=== PATIENT | male | born 1945 | race Caucasian/White ===

== ENCOUNTER 2025-07-01 17:41 | Observation (INO) ==
--- NOTE | 2025-07-01 18:08 | Emergency Department Note ---
Impression & Plan GI bleed, Elevated troponin, Syncope, Acute head trauma, Abrasion of left knee, Anticoagulated ED Provider Note NAME: ZACK BLAS AGE: 80 SEX: M : 1945 ARRIVES VIA: Walk-In INFORMANT: [Patient][son] ED PROVIDER(S): [Jones Blanton MD] Patient first seen by me at 1754 CHIEF COMPLAINT: Rectal bleeding, fall HISTORY OF PRESENT ILLNESS: Patient is an 80-year-old male who states that he has had 4 to 5 days of black tarry stool. Today, he was at the refrigerator when he felt dizzy and apparently, had a brief syncopal event. He suffered a left knee abrasion and did strike the right side of his head. He has no headache or neck pain, no back pain or chest pain, no rib pain. No abdominal pain. He states despite the abrasion to the left knee, he can walk without difficulty. The patient is on Xarelto. He states that he gave a stool sample outpatient and it was positive for blood. He was referred to the ER. Patient had been on an antibiotic for around 5 days, he was on this for UTI. He stopped the antibiotic today as he thought it was causing a lot of the stomach upset and maybe even the loose, tarry black stool. PMHx/PSHx/Social Hx: See Below PHYSICAL EXAM: Primary Survey Airway: Intact Breathing: Breath sounds equal bilaterally. No respiratory distress Circulation: Skin warm, capillary refill less than 2 seconds Disability: Pupils equal and reactive to light Motor Function: Moves all extremities. Sensory: No deficits Secondary Survey GEN: Well developed and well-nourished HEAD: Normocephalic, atraumatic EYES: Pupils round and reactive to light, conjunctiva clear, extraocular movements intact ENT: No fluid in external acoustic canals, nares patent, oropharynx clear NECK: Midline trachea, no cervical spine tenderness HEART: Irregular rhythm, 2/6 systolic murmur, normal rate. LUNGS: Clear to auscultation bilaterally CHEST: Chest wall non-tender, no bruising/deformity ABD: No contusions, soft, non-tender, no distention PELVIS: Stable to rock BACK: No step offs or deformities, T-L spine non tender EXT: Moving all extremities well, no gross deformities. There is an abrasion to the anterior aspect of left knee. No pain to move the left knee joint. NEURO: No focal motor deficits, no sensory deficits DIFFERENTIAL DIAGNOSIS: Intracranial injury, upper or lower GI bleeding, anemia, electrolyte imbalance, UTI, among others. EMERGENCY DEPARTMENT PROCEDURES: C-spine clinically cleared at 1803, during my initial assessment. MEDICAL DECISION MAKING: There is no leukocytosis. A mild anemia was seen, he has a history of anemia. There was a normal platelet count. INR was 1.5, likely elevated from his Xarelto use. There was no significant electrolyte abnormality. Creatinine was elevated, this has been seen before. No concerning liver enzyme elevation. No evidence for pancreatitis. ECG showed atrial fibrillation, no obvious ischemia. Cardiac enzyme testing x 1 is somewhat elevated. This troponin elevation certainly could be from cardiac injury or mismatch. Looking back at previous testing, the patient's troponin has been mildly elevated with previous testing. Chest x-ray today does not show CHF or pneumonia. No obvious rib injury. Brain CT shows no acute bleed or mass effect. Abdominal and pelvis CT does not show any acute traumatic injury. Diverticulosis was seen. No obvious source for bleeding. Left knee film did not show dislocation or fracture. The patient was hemodynamically stable. He did receive a 500 cc saline bolus. He was given IV Protonix and IV Pepcid. The patient presents with a syncopal episode. He has had several days of dark tarry stool and was told his stool was heme positive outpatient. The patient requires a hospital stay. He will need hemoglobin trending and potentially, a GI consult/evaluation. He will need further cardiac workup. I did speak with the patient and his family, I did speak with case management, the on-call hospitalist was consulted. Luckily, no serious traumatic injury from his syncopal spell. Prior/Outside records/notes reviewed: None ECG per my interpretation: Indication was fall and possible GI bleed. The ECG shows atrial fibrillation with PVCs. The rate is 105. There is a right bundle branch block. There is no ST elevation, QTc is 489 Continuous Cardiac Monitoring per my interpretation: An order was placed for continuous cardiac monitoring. The monitor shows a rate of 103 with atrial fibrillation with PVCs. Imaging/x-ray results per my interpretation: Chest x-ray does not show CHF or pneumonia. Chronic Medical/Social conditions affecting care: Advanced age, Xarelto use. Care/Management discussed with: Case management, the on-call hospitalist. Level of care consideration(s): After review of the information above and other included data: --I believe the patient requires escalation of care to admission Critical Care Note: I have personally spent 55 minutes of critical care time in the direct management of this patient. This includes bedside care, interpretation of diagnostic studies, and testing, discussion with consultants, patient, and family members, and other required patient management activities. This 55 minutes is in excess of all separately billable procedures. DISPOSITION: Admission Past Med/Surg History Problem List Anticoagulated (Acute) Abrasion of left knee (Acute) Acute head trauma (Acute) Syncope (Acute) Elevated troponin (Acute) GI bleed (Acute) Encounter for pre-operative examination Somatic dysfunction of lumbar region Acute low back pain (Acute) Acute diverticulitis UTI (urinary tract infection), uncomplicated Acute blood loss anemia B12 deficiency Elevated troponin History of leukemia COPD (chronic obstructive pulmonary disease) CKD (chronic kidney disease) stage 3, GFR 30-59 ml/min CAD (coronary artery disease) DM II (diabetes mellitus, type II), controlled currently on Ozempic CHF (congestive heart failure) GERD (gastroesophageal reflux disease) Afib currently on xarelto; f/u fredrick jiménez Acute myeloid leukemia, 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 Medical History Neuropathy Hx of fracture of nose multiple times in the past (years ago) Sleep apnea cpap Chronic obstructive pulmonary disease GI bleed 06/2023, recently hospitalized at [facility] for 5 days; found to have diverticulitis Non-ST elevation IL (NSTEMI) pt denies Surgical History History of total right knee replacement History of total left knee replacement Hx of umbilical hernia repair done w/cholecystectomy Hx of cholecystectomy Hx of colonoscopy History of cardiac cath ~10-12 years, failed stress test, [facility] fredrick, no stents; f/u fredrick jiménez 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, [facility] [place] History of esophagogastroduodenoscopy (EGD) Social History Smoking Status: Former smoker Tobacco Type: Cigarettes Smoking End Date: 40 years ago; Second Hand Exposure: No; Do You Dip or Chew Tobacco: No; Tobacco Cessation Education Requested by Patient: No Hx Alcohol Use: No Hx Substance Use: No Preferred Language: Zimbabwean Communication Ability: Effective Marketing Development Representative Required: No Beliefs That Will Affect Care: None Current Living Situation: Alone Other Information That Helps Us Care for You: No Feels Safe at Home: Yes Safety Concerns: Feels Safe At This Time Assistive Devices: Denture - Upper, Denture - Lower, Glasses and Hearing Aid - Bilateral Allergies Allergies Allergy/AdvReac Type Severity Reaction Status Date / Time nitrofurantoin Allergy Severe SHORT OF Verified 07/01/25 19:55 [From Macrobid] BREATH, DIZZY, LIGHTHEADED, NAUSEA/VOMITING Home Meds Home Medications Medication Instructions Recorded Confirmed fluticasone fur. 200 mcg-umeclid 1 inh inhalation QAM 07/01/23 07/01/25 62.5 mcg-vilant 25 mcg inhalat.powder (Trelegy Ellipta) ipratropium 0.5 mg-albuterol 3 mg 3 ml inhalation Q6H PRN Shortness 07/01/23 07/01/25 (2.5 mg base)/3 mL nebulization Of Breath soln magnesium oxide 400 mg (241.3 mg 400 mg PO BID 07/01/23 07/01/25 magnesium) tablet ranolazine 500 mg tablet,extended 500 mg PO BID 07/01/23 07/01/25 release,12 hr rivaroxaban 15 mg tablet (Xarelto) 15 mg PO HS 07/01/23 07/01/25 rosuvastatin 5 mg tablet 5 mg PO QAM 07/01/23 07/01/25 diltiazem HCl 240 mg 240 mg PO QAM 08/17/23 07/01/25 capsule,extended release 24 hr furosemide 20 mg tablet 20 - 40 mg PO UD 08/17/23 07/01/25 fluticasone propionate 50 1 spray intranasal DAILY PRN 07/01/25 07/01/25 mcg/actuation nasal Congestion spray,suspension gabapentin 300 mg capsule 300 mg PO HS 07/01/25 07/01/25 loratadine 10 mg tablet (Claritin) 10 mg PO DAILY PRN Congestion 07/01/25 07/01/25 neomycin-bacitracn Zn-polymyxin 1 applic topical BID PRN APPLY TO 07/01/25 07/01/25 3.5 mg-500 unit-10,000 unit top EAR NEEDED oint semaglutide 1 mg/dose (4 mg/3 mL) 1 mg subcut WK 07/01/25 07/01/25 subcutaneous pen injector (Ozempic) tamsulosin 0.4 mg capsule 0.4 mg PO DAILY 07/01/25 07/01/25 Results & Data (ED) Vital Signs Vital Signs - 24 hr 07/01/25 17:45 07/01/25 18:36 07/01/25 18:37 Temperature 36.6 C Temperature Source Temporal Artery Scan Pulse Rate 106 H 91 H 96 H Pulse Rate [Left Finger] Pulse Rate from SpO2 Sensor 85 Pulse Rhythm Respiratory Rate 18 24 Respiratory Effort / Characteristics Non-Labored Spontaneous Respiratory Depth Normal Respiratory Pattern Regular Blood Pressure 137/79 109/72 Blood Pressure [Left Arm] Blood Pressure Mean 98 84 Blood Pressure Mean [Left Arm] Blood Pressure Position [Left Arm] Pulse Oximetry 96 97 Oxygen Delivery Method Room Air Room Air Sepsis Recent Fever Within 48 Hours No Sepsis New/Unexplained Change in Mental Status N/A Sepsis Action Taken by Nursing No Action Required 07/01/25 18:40 07/01/25 19:18 07/01/25 19:18 Temperature 36.9 C Temperature Source Oral Pulse Rate 93 H Pulse Rate [Left Finger] 79 102 H Pulse Rate from SpO2 Sensor Pulse Rhythm Regular Respiratory Rate 20 18 18 Respiratory Effort / Characteristics Non-Labored Spontaneous Respiratory Depth Normal Respiratory Pattern Regular Blood Pressure Blood Pressure [Left Arm] 107/72 135/81 Blood Pressure Mean Blood Pressure Mean [Left Arm] 83 99 Blood Pressure Position [Left Arm] Sitting Pulse Oximetry 98 96 95 Oxygen Delivery Method Room Air Room Air Room Air Sepsis Recent Fever Within 48 Hours Sepsis New/Unexplained Change in Mental Status Sepsis Action Taken by Nursing 07/01/25 19:20 07/01/25 19:30 07/01/25 20:00 Temperature 36.9 C Temperature Source Oral Pulse Rate 90 102 H Pulse Rate [Left Finger] 105 H Pulse Rate from SpO2 Sensor 90 99 H Pulse Rhythm Respiratory Rate 18 18 Respiratory Effort / Characteristics Non-Labored Spontaneous Respiratory Depth Normal Respiratory Pattern Regular Blood Pressure 137/65 Blood Pressure [Left Arm] 120/86 Blood Pressure Mean 89 Blood Pressure Mean [Left Arm] 97 Blood Pressure Position [Left Arm] Lying Pulse Oximetry 95 97 Oxygen Delivery Method Room Air Room Air Sepsis Recent Fever Within 48 Hours Sepsis New/Unexplained Change in Mental Status Sepsis Action Taken by Nursing 07/01/25 20:33 07/01/25 21:00 07/01/25 21:21 Temperature 36.9 C Temperature Source Oral Pulse Rate 86 98 H Pulse Rate [Left Finger] 83 Pulse Rate from SpO2 Sensor 101 H 105 H Pulse Rhythm Respiratory Rate 22 18 22 Respiratory Effort / Characteristics Non-Labored Spontaneous Respiratory Depth Normal Respiratory Pattern Regular Blood Pressure 113/60 112/61 Blood Pressure [Left Arm] 120/83 Blood Pressure Mean 77 78 Blood Pressure Mean [Left Arm] 95 Blood Pressure Position [Left Arm] Lying Pulse Oximetry 97 98 91 Oxygen Delivery Method Room Air Room Air Room Air Sepsis Recent Fever Within 48 Hours Sepsis New/Unexplained Change in Mental Status Sepsis Action Taken by [facility] Medications Current Medication List: was personally reviewed by me Laboratory Data Attestation: I reviewed the patient's lab results. 07/01/25 18:14 07/01/25 18:14 Lab Results 07/01/25 07/01/25 07/01/25 Range/Units 18:14 18:37 20:14 WBC 9.19 (4.8-10.8) K/ul RBC 3.23 L (4.70-6.10) M/uL Hgb 11.3 L (14.0-18.0) g/dl POC Hgb 9.9 L (14.0-18.0) g/dl Hct 32.6 L (42.0-52.0) % POC Hct 29 L (42-52) % MCV 100.9 H (80.0-100.0) fL MCH 35.0 H (25.0-34.0) pg MCHC 34.7 (32.0-36.0) g/dL RDW Std Deviation 62.3 H (36.4-46.3) fL RDW Coeff of Rosalva 17.2 H (11.5-14.5) % Plt Count 220 (130-400) K/uL MPV 10.2 (9.4-12.4) fL Immature Gran % (Auto) 0.3 % Neut % (Auto) 63.2 % Lymph % (Auto) 23.1 % Clinton % (Auto) 11.9 % Eos % (Auto) 1.0 % Baso % (Auto) 0.5 % Neut # (Auto) 5.81 (1.40-6.50) K/uL Lymph # (Auto) 2.12 (1.20-3.40) K/uL Clinton # (Auto) 1.09 H (0.11-0.59) K/uL Eos # (Auto) 0.09 (0.00-0.50) K/uL Baso # (Auto) 0.05 (0.00-0.20) K/uL Immature Gran # (Auto) 0.03 (0.01-0.20) K/uL Absolute Nucleated RBC 0.03 (0.00-0.12) K/uL Nucleated RBC % (auto) 0.3 % PT 15.6 H (9.0-12.0) Seconds INR 1.5 H (0.9-1.1) APTT 43 H (21-31) Seconds PTT Ratio 1.6 POC Sodium 137 (135-144) mmol/L Sodium 136 (136-145) mmol/L POC Potassium 3.6 (3.3-5.0) mmol/L Potassium 3.8 (3.5-5.1) mmol/L POC Chloride 104 (101-112) mmol/L Chloride 103 (98-107) mmol/L Carbon Dioxide 23 (21-32) mmol/L POC Total CO2 21 L (24-31) mmol/L Anion Gap 10 (3-11) POC Anion Gap 16.0 (16-25) mmol/L POC BUN 43 H (7-18) mg/dl BUN 50 H (6-23) mg/dl Creatinine 1.64 H (0.6-1.4) mg/dl POC Creatinine 1.9 H (0.6-1.3) mg/dl Est Cr Clr Drug Dosing 41.4 ml/min eGFR 41.50 BUN/Creatinine Ratio 30.5 H (10-20) Glucose 144 H (70-99(Fasting)) mg/dl POC Glucose (other) 148 H (70-99) mg/dl Calcium 9.4 (8.6-10.3) mg/dl POC Ioniz Calcium Parth 1.20 (1.12-1.32) mmol/l Magnesium 2.0 (1.7-2.4) mg/dl Total Bilirubin 0.7 (0.2-1.0) mg/dl AST 11 L (13-39) U/L ALT 7 (7-52) U/L Alkaline Phosphatase 48 (34-104) U/L Troponin I High Sens 276.1 H* 258.6 H* (0-20) pg/ml Total Protein 7.0 (6.0-8.3) gm/dl Albumin 3.6 (3.4-5.0) gm/dl Globulin 3.4 (2.5-4.0) gm/dl Albumin/Globulin Ratio 1.1 (0.9-2) Lipase 40 (11-82) U/L Blood Type Antibody Screen 07/01/25 Range/Units 20:30 WBC (4.8-10.8) K/ul RBC (4.70-6.10) M/uL Hgb (14.0-18.0) g/dl POC Hgb (14.0-18.0) g/dl Hct (42.0-52.0) % POC Hct (42-52) % MCV (80.0-100.0) fL MCH (25.0-34.0) pg MCHC (32.0-36.0) g/dL RDW Std Deviation (36.4-46.3) fL RDW Coeff of Rosalva (11.5-14.5) % Plt Count (130-400) K/uL MPV (9.4-12.4) fL Immature Gran % (Auto) % Neut % (Auto) % Lymph % (Auto) % Clinton % (Auto) % Eos % (Auto) % Baso % (Auto) % Neut # (Auto) (1.40-6.50) K/uL Lymph # (Auto) (1.20-3.40) K/uL Clinton # (Auto) (0.11-0.59) K/uL Eos # (Auto) (0.00-0.50) K/uL Baso # (Auto) (0.00-0.20) K/uL Immature Gran # (Auto) (0.01-0.20) K/uL Absolute Nucleated RBC (0.00-0.12) K/uL Nucleated RBC % (auto) % PT (9.0-12.0) Seconds INR (0.9-1.1) APTT (21-31) Seconds PTT Ratio POC Sodium (135-144) mmol/L Sodium (136-145) mmol/L POC Potassium (3.3-5.0) mmol/L Potassium (3.5-5.1) mmol/L POC Chloride (101-112) mmol/L Chloride (98-107) mmol/L Carbon Dioxide (21-32) mmol/L POC Total CO2 (24-31) mmol/L Anion Gap (3-11) POC Anion Gap (16-25) mmol/L POC BUN (7-18) mg/dl BUN (6-23) mg/dl Creatinine (0.6-1.4) mg/dl POC Creatinine (0.6-1.3) mg/dl Est Cr Clr Drug Dosing ml/min eGFR BUN/Creatinine Ratio (10-20) Glucose (70-99(Fasting)) mg/dl POC Glucose (other) (70-99) mg/dl Calcium (8.6-10.3) mg/dl POC Ioniz Calcium Parth (1.12-1.32) mmol/l Magnesium (1.7-2.4) mg/dl Total Bilirubin (0.2-1.0) mg/dl AST (13-39) U/L ALT (7-52) U/L Alkaline Phosphatase (34-104) U/L Troponin I High Sens (0-20) pg/ml Total Protein (6.0-8.3) gm/dl Albumin (3.4-5.0) gm/dl Globulin (2.5-4.0) gm/dl Albumin/Globulin Ratio (0.9-2) Lipase (11-82) U/L Blood Type O Positive Antibody Screen NEGATIVE Administered Medications Lactated Ringer's (Lr) 1,000 mls @ 80 mls/hr IV .[id number] TAYLOR Stop: 07/02/25 22:44 Last Admin: 07/01/25 22:50 Dose: 80 mls/hr Documented By: BH Discontinued Medications Pantoprazole Sodium 80 mg/ (Dextrose) 120 mls @ 400 mls/hr IV NOW ONE Stop: 07/01/25 18:09 Last Infusion: 07/01/25 19:41 Dose: Infused Documented By: Admin: 07/01/25 19:22 Dose: 400 mls/hr Documented By: VIV Famotidine (Pepcid 20mg Iv Push) 20 mg in 5 mls @ 2.5 mls/min IV NOW STA Stop: 07/01/25 17:53 Last Admin: 07/01/25 18:32 Dose: 2.5 mls/min Documented By: TRIPP Sodium Chloride (Nss) 500 mls @ 999 mls/hr IV .Q31M ONE Stop: 07/01/25 18:33 Last Infusion: 07/01/25 19:24 Dose: Infused Documented By: Admin: 07/01/25 18:32 Dose: 999 mls/hr Documented By: TRIPP Ioversol (Optiray 320 100ml) 90 ml IV ONCE ONE Stop: 07/01/25 18:56 Last Admin: 07/01/25 18:56 Dose: 90 ml Documented By: CHARANJIT Imaging Data Radiologist's Impression: Chest X-Ray 07/01/25 17:52 EXAM: Portable AP chest radiograph TECHNIQUE: AP portable radiograph of the chest was obtained. INDICATION: Shortness of breath Comparison: None. FINDINGS: LINES and TUBES: None CARDIOVASCULAR: Cardiac silhouette is mildly enlarged in size. LUNGS/PLEURA: Focal reticular opacity over the right midlung. Chronic interstitial lung changes. No significant pleural fluid. No discernible pneumothorax. There is elevation of the right hemidiaphragm. OSSEOUS/OTHER: No displaced acute osseous process identified. IMPRESSION: Focal reticular opacity over the right midlung may represent scarring or atelectasis. Mild airspace disease not excluded. Please clinically correlate with physical examination. Electronically signed by Sherif Cho 07-01-2025 7:25 PM Abdomen/Pelvis CT 07/01/25 18:02 Exam: CT abdomen/pelvis with IV contrast. Reason for exam: Blood in stool. Previous studies: CT abdomen/pelvis 07/07/2023. FINDINGS: Lower lungs show some mild atelectatic changes but otherwise remain essentially clear. Extensive coronary artery calcifications in the right and left coronary system are present. Clips from cholecystectomy are noted. Liver shows no focal abnormality. Pancreas and spleen are unremarkable. Adrenal glands unremarkable. Cortical renal cysts are again noted but no gross solid lesion or hydronephrosis is seen on either kidney at this time. Inferior vena cava filter is seen. Extensive atherosclerotic vascular calcifications are seen in the aortoiliac arterial system and branches. Findings suggest possible stenosis at the origin of the SMA artery. 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 Extensive diverticulosis of the descending and sigmoid colon is seen without specific evidence of acute diverticulitis. No evidence of appendicitis. No evidence of bowel obstruction or free air. There is a deficiency in the right upper anterior abdominal wall which is chronic and may be due to the cholecystectomy. IMPRESSION: 1. Extensive diverticulosis of the descending and sigmoid colon. Follow-up colonoscopy recommended for more specific evaluation of the hematochezia. 2. Extensive atherosclerotic atherosclerotic calcification with small infrarenal aneurysm with a maximum diameter of 2.8 cm at this time. 3. 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 This would be better evaluated with CTA and/or MRA exam. 4. Otherwise negative for acute abnormalities at this time. Electronically signed by Johnnie Padilla 07-01-2025 8:[address] 07/01/25 18:02 CT head without contrast History: Trauma Comparison: None Technique: Using multidetector thin collimation helical acquisition technique, axial, coronal and sagittal CT images from the skull base to the vertex were obtained without intravenous contrast. Dose reduction techniques were achieved by using automatic exposure control and/or adjustment of mA and/or kV according to patient size and/or use of iterative reconstruction technique. Findings: No intracranial hemorrhage, mass-effect, or midline shift. The ventricles are proportionate to the cerebral sulci. The mejia to white matter differentiation of the cerebral hemispheres is preserved. The basal cisterns are patent. There is moderate cerebral atrophy. Moderate, patchy low-attenuation changes in the white matter, most suggestive of sequelae of chronic small vessel ischemic disease. The visualized paranasal sinuses are clear. Mastoid air cells are clear. Impression: No acute intracranial pathology. Electronically signed by Braulio Duncan 07-01-2025 7:32 PM Knee X-Ray 07/01/25 18:03 Exam: 3 view left knee. History: Fall. Comparison:None. Findings: Tricompartmental arthroplasty changes are noted. Femoral and tibial components demonstrate long stems orthopedic hardware appears to be well-seated without failure. Portions of the orthopedic hardware not included on this exam. Vascular calcifications. At least small joint effusion. Question mild soft tissue swelling infrapatellar knee region. No appreciated fracture. Impression: Likely small joint effusion with questionable ventral infrapatellar soft tissue swelling. Tricompartmental arthroplasty changes with additional chronic findings. No additional acute process. Please see above for details. If old studies exist recommend making them available for comparison purposes. Electronically signed by Vazquez Thomas 07-01-2025 8:17 PM Discharge Plan Visit Data Chief Complaint: Rectal Bleed Stated Complaint: BLOOD IN THE STOOL. ON BLOOD THINNERS ED Provider: Jones Blanton Discharge Problem: GI bleed, Elevated troponin, Syncope, Acute head trauma, Abrasion of left knee, Anticoagulated Patient Disposition: Admitted As Inpatient Condition: Fair Discharge Instructions Interventions: ED Discharge Assessment Last Done: 07/01/25 22:10 Discharge Problem: GI bleed Qualifiers: GI bleed type/associated pathology: unspecified gastrointestinal hemorrhage type Qualified Code(s): K92.2 - Gastrointestinal hemorrhage, unspecified Syncope Qualifiers: Syncope type: unspecified Qualified Code(s): R55 - Syncope and collapse Acute head trauma Qualifiers: Encounter type: initial encounter Qualified Code(s): S09.90XA - Unspecified injury of head, initial encounter Abrasion of left knee Qualifiers: Encounter type: initial encounter Qualified Code(s): S80.212A - Abrasion, left knee, initial encounter
[2025-07-01] MEDS: SODIUM CHLORIDE 0.9% 500 ML IV ONE (18:32)
[2025-07-01] MEDS: FAMOTIDINE 20MG IV PUSH 20 MG/5 ML SYR IV STA (18:32)
[2025-07-01 18:46] LABS: Hematocrit (blood only) 32.6 % (42.0-52.0); Hemoglobin 11.3 g/dl (14.0-18.0); Immature Granulocytes # (auto) 0.03 K/uL (0.01-0.20); Immature Granulocytes % (auto) 0.3 %; Mean Corpuscular Hemoglobin 35.0 pg (25.0-34.0); Mean Corpuscular Volume 100.9 fL (80.0-100.0); Platelet Count 220 K/uL (130-400); RDW Standard Deviation 62.3 fL (36.4-46.3); Red Blood Count 3.23 M/uL (4.70-6.10); White Blood Count 9.19 K/ul (4.8-10.8)
[2025-07-01] MEDS: OPTIRAY 320 100ml IV ONE (18:56)
[2025-07-01 19:03] LABS: Alanine Aminotransferase 7.0 U/L (7-52); Albumin Globulin Ratio 1.1 (0.9-2); Albumin Level 3.6 gm/dl (3.4-5.0); Alkaline Phosphatase 48.0 U/L (34-104); Anion Gap 10.0 (3-11); Bilirubin,Total 0.7 mg/dl (0.2-1.0); Blood Urea Nitrogen 50.0 mg/dl (6-23); Calcium 9.4 mg/dl (8.6-10.3); Carbon Dioxide 23.0 mmol/L (21-32); Chloride 103.0 mmol/L (98-107); Creatinine Clr Calc Pharmacy 41.4 ml/min; Globulin 3.4 gm/dl (2.5-4.0); Glucose 144.0 mg/dl (70-99(Fasting)); Lipase 40.0 U/L (11-82); Magnesium 2.0 mg/dl (1.7-2.4); Potassium 3.8 mmol/L (3.5-5.1); Sodium 136.0 mmol/L (136-145); Total Protein 7.0 gm/dl (6.0-8.3)
[2025-07-01 19:15] LABS: INR 1.5 (0.9-1.1); Partial Thromboplastin Time 43 Seconds (21-31); Prothrombin Time 15.6 Seconds (9.0-12.0)
--- NOTE | 2025-07-01 19:28 | XRay Report ---
EXAM: Portable AP chest radiograph TECHNIQUE: AP portable radiograph of the chest was obtained. INDICATION: Shortness of breath Comparison: None. FINDINGS: LINES and TUBES: None CARDIOVASCULAR: Cardiac silhouette is mildly enlarged in size. LUNGS/PLEURA: Focal reticular opacity over the right midlung. Chronic interstitial lung changes. No significant pleural fluid. No discernible pneumothorax. There is elevation of the right hemidiaphragm. OSSEOUS/OTHER: No displaced acute osseous process identified. IMPRESSION: Focal reticular opacity over the right midlung may represent scarring or atelectasis. Mild airspace disease not excluded. Please clinically correlate with physical examination. Electronically signed by Sherif Cho 07-01-2025 7:25 PM
--- NOTE | 2025-07-01 19:35 | CT Scan Report ---
CT head without contrast History: Trauma Comparison: None Technique: Using multidetector thin collimation helical acquisition technique, axial, coronal and sagittal CT images from the skull base to the vertex were obtained without intravenous contrast. Dose reduction techniques were achieved by using automatic exposure control and/or adjustment of mA and/or kV according to patient size and/or use of iterative reconstruction technique. Findings: No intracranial hemorrhage, mass-effect, or midline shift. The ventricles are proportionate to the cerebral sulci. The mejia to white matter differentiation of the cerebral hemispheres is preserved. The basal cisterns are patent. There is moderate cerebral atrophy. Moderate, patchy low-attenuation changes in the white matter, most suggestive of sequelae of chronic small vessel ischemic disease. The visualized paranasal sinuses are clear. Mastoid air cells are clear. Impression: No acute intracranial pathology. Electronically signed by Braulio Duncan 07-01-2025 7:32 PM
--- NOTE | 2025-07-01 20:11 | CT Scan Report ---
Exam: CT abdomen/pelvis with IV contrast. Reason for exam: Blood in stool. Previous studies: CT abdomen/pelvis 07/07/2023. FINDINGS: Lower lungs show some mild atelectatic changes but otherwise remain essentially clear. Extensive coronary artery calcifications in the right and left coronary system are present. Clips from cholecystectomy are noted. Liver shows no focal abnormality. Pancreas and spleen are unremarkable. Adrenal glands unremarkable. Cortical renal cysts are again noted but no gross solid lesion or hydronephrosis is seen on either kidney at this time. Inferior vena cava filter is seen. Extensive atherosclerotic vascular calcifications are seen in the aortoiliac arterial system and branches. Findings suggest possible stenosis at the origin of the SMA artery. 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 Extensive diverticulosis of the descending and sigmoid colon is seen without specific evidence of acute diverticulitis. No evidence of appendicitis. No evidence of bowel obstruction or free air. There is a deficiency in the right upper anterior abdominal wall which is chronic and may be due to the cholecystectomy. IMPRESSION: 1. Extensive diverticulosis of the descending and sigmoid colon. Follow-up colonoscopy recommended for more specific evaluation of the hematochezia. 2. Extensive atherosclerotic atherosclerotic calcification with small infrarenal aneurysm with a maximum diameter of 2.8 cm at this time. 3. 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 This would be better evaluated with CTA and/or MRA exam. 4. Otherwise negative for acute abnormalities at this time. Electronically signed by Johnnie Padilla 07-01-2025 8:11 PM
--- NOTE | 2025-07-01 20:17 | XRay Report ---
Exam: 3 view left knee. History: Fall. Comparison:None. Findings: Tricompartmental arthroplasty changes are noted. Femoral and tibial components demonstrate long stems orthopedic hardware appears to be well-seated without failure. Portions of the orthopedic hardware not included on this exam. Vascular calcifications. At least small joint effusion. Question mild soft tissue swelling infrapatellar knee region. No appreciated fracture. Impression: Likely small joint effusion with questionable ventral infrapatellar soft tissue swelling. Tricompartmental arthroplasty changes with additional chronic findings. No additional acute process. Please see above for details. If old studies exist recommend making them available for comparison purposes. Electronically signed by Vazquez Thomas 07-01-2025 8:17 PM
--- NOTE | 2025-07-01 22:07 | History & Physical Report ---
Date of Service July 01, 2025 Assessment & Plan (1) UGIB (upper gastrointestinal bleed): (2) Elevated troponin: (3) Syncope: Plan Patient is an 80-year-old male with a past medical history of CKD, A-fib on Xarelto, COPD, type II DM, CAD, CHF. Patient presented due to 10 days of black tarry stools and a syncopal event 07/01. He was found to have a hemoglobin of 11.3, HCT 32.6, BUN 50, and troponin elevated to 276.1. He is being admitted for a GI bleed and for further cardiac workup. #UGIB - hx of in 2022 possibly 2/2 portal hypertensive gastropathy. Hemodynamically stable at time of admission. Hgb 11.3 (unclear as to patient's baseline when not actively bleeding), BUN 50. - pantoprazole 40mg IV BID - Rocephin 1g IV q24hrs ordered on admission - NPO; hold all PO medications Hold Xarelto, last dose 07/01 PM prior to arrival to ED - consulted GI - received 500 mL NSS bolus in ED; continue fluid resuscitation with LR @ 80 ml/hr - Hemoccult all stools - H&H q6h - b12 and folate ordered with elevated MCV #elevated troponin - trop 276.1. -> 258.6. Patient denies any CP, however did have episode of syncope 07/01. Likely 2/2 demand with above (elevated in 100s with prior GIB). - EKG ordered now and prn with any chest pain - trend troponin q6hrs - echocardiogram ordered - monitor on tele #syncopepatient endorses feeling symptomatic with dizziness prior to episode, denies any chest pain. Possibly 2/2 anemia with upper GI bleed above. Blood pressures have been on lower side in ED. Head CT negative for acute changes, knee XR showed small right joint effusion. Holding Lasix Cardiac workup as above Treat GI bleed Monitor on telemetry #UTI - reported outpatient UTI on nitrofurantoin, with numerous side effects (discontinued 07/01 AM) - Rocephin as above - UA ordered #A-fibholding diltiazem and Xarelto with n.p.o. status #CHFholding Lasix with n.p.o. 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 Follow in outpatient setting #SMA stenosisquestionable SMA stenosis noted on AP CT. Follow-up in outpatient setting VTE ppx: SCDs, holding Xarelto with GI bleed Dispo: PCU Admission and Anticipated Discharge Date Admission Date: 07/01/25 History of Present Illness Chief Complaint: rectal bleed Primary Care Provider: KATE Vasquez Patient is an 80-year-old male with a past medical history of CKD, A-fib on Xarelto, COPD, type II DM, CAD, CHF. Patient presented due to 10 days of black tarry stools and a syncopal event 07/01. He was found to have a hemoglobin of 11.3, HCT 32.6, BUN 50, and troponin elevated to 276.1. He is being admitted for a GI bleed and for further cardiac workup. Patient seen at bedside with his son present. He stated he has had 10 days of dark black tarry stools, denies any bright red blood in stools. He stated he has been on an iron supplement however it has been for many years. He also stated that he had a syncopal event in his kitchen 07/01 resulting in a fall landing on his left knee and striking the right side of his head. He stated he felt the episode coming and felt dizzy prior to, denies any chest pain. He endorses shortness of breath, dizziness, nausea, and poor appetite for about 5 days however thought that all of the symptoms were secondary to nitrofurantoin which she was prescribed for a UTI by his PCP. He stopped this medication today due to the symptoms. Patient denies any recent NSAID or alcohol use. He was admitted to [facility] in June 2023 for suspected upper GI bleed with dark tarry stools. He had an EGD during this admission which showed portal hypertensive gastropathy, no history of liver disease. He also had a CT scan which showed diverticulitis so colonoscopy was deferred for several weeks which then later showed melanosis, diverticulosis of sigmoid and descending colon, and multiple polyps were not removed at that time. He also was noted to have a low B12 level during this admission. Patient stated he has had no recurrence of symptoms since then. He stated he has not drink alcohol or smoked in 30 years. He took all of his evening medications today including his Xarelto at 5 PM. He takes Lasix 40 mg p.o. on odd days and Lasix 20 mg on even days. He wishes to be full code. Allergies Allergy/AdvReac Type Severity Reaction Status Date / Time nitrofurantoin Allergy Severe SHORT OF Verified 07/01/25 19:55 [From Macrobid] BREATH, DIZZY, LIGHTHEADED, NAUSEA/VOMITING Home Medications Medication Instructions Recorded Confirmed Type fluticasone fur. 200 mcg-umeclid 1 inh inhalation QAM 07/01/23 07/01/25 History 62.5 mcg-vilant 25 mcg inhalat.powder (Trelegy Ellipta) ipratropium 0.5 mg-albuterol 3 mg 3 ml inhalation Q6H PRN Shortness 07/01/23 07/01/25 History (2.5 mg base)/3 mL nebulization Of Breath soln magnesium oxide 400 mg (241.3 mg 400 mg PO BID 07/01/23 07/01/25 History magnesium) tablet ranolazine 500 mg tablet,extended 500 mg PO BID 07/01/23 07/01/25 History release,12 hr rivaroxaban 15 mg tablet (Xarelto) 15 mg PO HS 07/01/23 07/01/25 History rosuvastatin 5 mg tablet 5 mg PO QAM 07/01/23 07/01/25 History diltiazem HCl 240 mg 240 mg PO QAM 08/17/23 07/01/25 History capsule,extended release 24 hr furosemide 20 mg tablet 20 - 40 mg PO UD 08/17/23 07/01/25 History fluticasone propionate 50 1 spray intranasal DAILY PRN 07/01/25 07/01/25 History mcg/actuation nasal Congestion spray,suspension gabapentin 300 mg capsule 300 mg PO HS 07/01/25 07/01/25 History loratadine 10 mg tablet (Claritin) 10 mg PO DAILY PRN Congestion 07/01/25 07/01/25 History neomycin-bacitracn Zn-polymyxin 1 applic topical BID PRN APPLY TO 07/01/25 07/01/25 History 3.5 mg-500 unit-10,000 unit top EAR NEEDED oint semaglutide 1 mg/dose (4 mg/3 mL) 1 mg subcut WK 07/01/25 07/01/25 History subcutaneous pen injector (Ozempic) tamsulosin 0.4 mg capsule 0.4 mg PO DAILY 07/01/25 07/01/25 History Past Med/Surg History Problem List (Updated 07/02/25 @ 12:52 by KATE Simms) Incomplete bladder emptying UGIB (upper gastrointestinal bleed) Anticoagulated (Acute) Abrasion of left knee (Acute) Acute head trauma (Acute) Syncope (Acute) Elevated troponin (Acute) GI bleed (Acute) Encounter for pre-operative examination Somatic dysfunction of lumbar region Acute low back pain (Acute) Acute diverticulitis UTI (urinary tract infection), uncomplicated Acute blood loss anemia B12 deficiency Elevated troponin History of leukemia COPD (chronic obstructive pulmonary disease) CKD (chronic kidney disease) stage 3, GFR 30-59 ml/min CAD (coronary artery disease) DM II (diabetes mellitus, type II), controlled currently on Ozempic CHF (congestive heart failure) GERD (gastroesophageal reflux disease) Afib currently on xarelto; f/u [facility]red[facility] jiménez Acute myeloid leukemia, 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 Medical History Neuropathy Hx of fracture of nose multiple times in the past (years ago) Sleep apnea cpap Chronic obstructive pulmonary disease GI bleed 06/2023, recently hospitalized at [facility] for 5 days; found to have diverticulitis Non-ST elevation CO (NSTEMI) pt denies Surgical History History of total right knee replacement History of total left knee replacement Hx of umbilical hernia repair done w/cholecystectomy Hx of cholecystectomy Hx of colonoscopy History of cardiac cath ~10-12 years, failed stress test, [facility], no stents; f/u fredrick jiménez 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 [facility] [place] of esophagogastroduodenoscopy (EGD) Social History Smoking Status: Former smoker Tobacco Type: Cigarettes Smoking End Date: 40 years ago; Second Hand Exposure: No; Do You Dip or Chew Tobacco: No; Tobacco Cessation Education Requested by Patient: No Hx Alcohol Use: No Hx Substance Use: No Preferred Language: [place] Communication Ability: Effective Twx Operator Required: No Beliefs That Will Affect Care: None Current Living Situation: Alone Other Information That Helps Us Care for You: No Feels Safe at Home: Yes Safety Concerns: Feels Safe At This Time Assistive Devices: None Review of Systems Review of Systems: see HPI Physical Exam Physical Exam: The patient is awake, alert and oriented 3, well developed and well nourished, normocephalic and atraumatic, in no acute distress. Non-toxic appearing. HEENT- EOMI, mucous membranes dry. Hearing grossly intact. Heart-normal S1 and S2. No murmurs, rubs or gallops. Lungs-clear bilaterally, no respiratory distress, no accessory muscle use. Abdomen-normal bowel sounds and soft. No ascites noted. Non-tender. Extremities- no clubbing, cyanosis, or edema. Rheumatologic-normal range of motion. Psychiatric-normal affect. Results & Data Results & Data Vital Signs (Past 12 Hours) Vital Signs Temp Pulse Pulse Resp BP BP Pulse Ox 07/01/25 21:00 36.9 C 83 18 120/83 98 07/01/25 20:33 86 22 113/60 97 07/01/25 20:00 36.9 C 105 H 18 120/86 97 07/01/25 19:30 102 H 18 137/65 95 07/01/25 19:20 90 07/01/25 19:18 36.9 C 102 H 18 135/81 95 07/01/25 19:18 93 H 18 96 07/01/25 18:40 79 20 107/72 98 07/01/25 18:37 96 H 07/01/25 18:36 91 H 24 109/72 97 07/01/25 17:45 36.6 C 106 H 18 137/79 96 O2 Del Method 07/01/25 21:00 Room Air 07/01/25 20:33 Room Air 07/01/25 20:00 Room Air 07/01/25 19:30 Room Air 07/01/25 19:20 07/01/25 19:18 Room Air 07/01/25 19:18 Room Air 07/01/25 18:40 Room Air 07/01/25 18:37 07/01/25 18:36 Room Air 07/01/25 17:45 Room Air Laboratory Results reviewed cbc, cmp, troponin, magnesium, type and screen Diagnostic Findings reviewed knee xr, head ct, ap ct, cxr Medications Administered ed - Pantoprazole 80 Mg IV Pepcid 20 Mg IV, 500 mL NSS bolus AdmissionRocephin 1G IV, LR at 80 mL/hour ECG Additional Comments: ordered Code Status & VTE Plan Code Status full code VTE Prophylaxis Plan VTE Prophylaxis will be ordered: Yes Supervising Physician Co-Signing Physician Notes Attending addendum: I have physically seen this patient, have supervised the SILKE's activities, and agree with the H&P unless as otherwise noted. Assessment and Plan: The patient is a 80-year-old male with past medical history including CKD, atrial fibrillation on Xarelto, COPD, diabetes mellitus type 2, CAD, and CHF. He presents to the emergency department with complaint of 10 days black tarry stools and a syncopal episode on 07/01. Laboratories in the ED showed hemoglobin 11.3, hematocrit 32.6, BUN 50, troponin 276.1. He was then referred to the hospitalist service for admission for further evaluation and treatment. Upper GI bleed- Hemoglobin 11.3 on admission Estimated duration of 10 days of bleeding Status post NSS 500 mL bolus, pantoprazole 80 mg IV and famotidine 20 mg IV. Pantoprazole 40 mg IV twice daily Ceftriaxone 1 g IV every 24 hours N.p.o. Hold Xarelto due to present GI bleed LR at 80 mL/h Heme test stools H&H every 6 hours Consult gastro allergy Elevated troponin/atrial fibrillation/CHF- 276.1 on admission, follow-up to 58.6. Patient denies chest pain, admitted for sickle episode 07/01 EKG without acute changes Likely supply/demand mismatch The patient will be admitted to telemetry for serial cardiac enzymes, serial EKG's, cardiac rhythm monitoring and a 2-D echocardiogram with Dopplers. Holding oral diltiazem and Xarelto Lopressor IV as noted Syncope- Reports feeling lightheaded and dizzy prior to syncopal event CT scan head without contrast negative for acute changes H&H every 6 hours Cardiac evaluation as noted above Workup for GI bleed ongoing Treat urinary tract fractions as below Urinary tract infection- Follow urine culture and sensitivity Failure of outpatient treatment with nitrofurantoin, and noted to have numerous side effects Ceftriaxone 1 g IV every 24 hours COPD- Continue usual inhalers PG Care Time/CCT Total # of Minutes Spent Total Time Spent with Patient: Total time spent is greater than 50% in coordination of care (as documented) at patient's floor/unit and/or counseling patient: Coding Level of Care Code 16852 INT INP/OBS CARE 375MIN Diagnoses UGIB (upper gastrointestinal bleed) K92.2 Elevated troponin R79.89 Syncope R55 Syncope type: unspecified (3) Syncope Syncope type: unspecified Qualified Code(s): R55 - Syncope and collapse
[2025-07-01] MEDS ORDERED: ONDANSETRON INJ 2 MG/ML 2 ML VIAL IV PRN (22:46)
[2025-07-01] MEDS ORDERED: ALBUT/IPRATROP 3MG/0.5MG NEB 3 ML VIAL INH PRN (22:46)
[2025-07-01] MEDS ORDERED: FLUTICASONE PROPIONATE NA SPR 16 GM BTL PRN (22:46)
[2025-07-01] MEDS ORDERED: ACETAMINOPHEN 1,000 MG/100 ML VIAL IV PRN (22:46)
[2025-07-01] MEDS: LACTATED RINGER'S 1,000 ML IV SCH (22:50)
[2025-07-01] MEDS: cefTRIAXone SODIUM 2,000 MG/50 ML BAG IV ONE (23:53)
[2025-07-02 01:35] LABS: Hematocrit (blood only) 27.0 % (42.0-52.0); Hemoglobin 9.3 g/dl (14.0-18.0)
[2025-07-02] MEDS: MELATONIN 3 MG TAB PO PRN (01:51)
[2025-07-02 06:02] LABS: Hematocrit (blood only) 25.8 % (42.0-52.0); Hemoglobin 9.2 g/dl (14.0-18.0); Immature Granulocytes # (auto) 0.02 K/uL (0.01-0.20); Immature Granulocytes % (auto) 0.3 %; Mean Corpuscular Hemoglobin 35.7 pg (25.0-34.0); Mean Corpuscular Volume 100.0 fL (80.0-100.0); Platelet Count 197 K/uL (130-400); RDW Standard Deviation 61.7 fL (36.4-46.3); Red Blood Count 2.58 M/uL (4.70-6.10); White Blood Count 6.25 K/ul (4.8-10.8)
[2025-07-02 06:19] LABS: Anion Gap 9.0 (3-11); Blood Urea Nitrogen 44.0 mg/dl (6-23); Calcium 8.6 mg/dl (8.6-10.3); Carbon Dioxide 20.0 mmol/L (21-32); Chloride 107.0 mmol/L (98-107); Creatinine Clr Calc Pharmacy 42.2 ml/min; Glucose 144.0 mg/dl (70-99(Fasting)); Magnesium 1.8 mg/dl (1.7-2.4); Potassium 3.8 mmol/L (3.5-5.1); Sodium 136.0 mmol/L (136-145)
[2025-07-02 06:43] LABS: Folate (Folic Acid),Ser orPlas 8.51 ng/ml (>5.38)
[2025-07-02 06:44] LABS: Vitamin B12 225.0 pg/ml (180-914)
[2025-07-02 07:44] LABS: Appearance Urine Clear (Clear); Bacteria Urine Automated None Seen (None Seen); Cast Urine Automated 0-2 /lpf (0-2); Glucose Urine UA Negative (Negative); RBC Urine Automated 0-2 /hpf (0-2); WBC Urine Automated 0-5 /hpf (0-5)
[2025-07-02] MEDS ORDERED: NON-FORMULARY MEDICATION (Fluticasone-Umeclidin-Vilanter [Trelegy Ellipta] 200-62.5-25 mcg INH SCH (09:00)
[2025-07-02] MEDS: PANTOprazole 40 MG/10 ML SYR IV SCH (09:04)
[2025-07-02] MEDS: UMECLIDINIUM/VILANTEROL 62.5/25MCG 7 PUFFS/INHALER INH SCH (09:05)
[2025-07-02] MEDS: FLUTICASONE FUROATE 200MCG 14 PUFFS/INHALER INH SCH (09:05)
[2025-07-02] MEDS: ROSUVASTATIN CALCIUM 5 MG TAB PO SCH (09:06)
--- NOTE | 2025-07-02 09:09 | Gastrointestinal Consultation ---
Date of Consultation July 02, 2025 Assessment & Plan (1) UGIB (upper gastrointestinal bleed): Plan 80yowm with h/o COPD, CKD 3, CAD, T2DM, GERD Afib on Xarelto, AML s/p Stem Cell transplant 2011 is seen today on GI rounds for UGIB. Patient presented due to 10 days of black tarry stools and a syncopal event 07/01 with fall. He was found to have a hemoglobin of 11.3, HCT 32.6, BUN 50, and troponin elevated to 276.1. He is being admitted for a GI bleed and for further cardiac workup. Today troponins are 258.3. Hgb 9.2. BUN 44, Cr 1.63. He had 1 soft black bowel movement this morning. VSS. No abdominal pain, SOB or CP on today's assessment. (1) Melena and Anemia suggestive of UGIB. - Case reviewed with Dr. Sarkar with recommendations below. - Recommend continuing to hold Xarelto. - Continue to monitor for occult bleeding, trend CBC daily and continue with Pantoprazole 40mg IV BID as ordered by primary team. - Given elevation in troponins request cardiac clearance for EGD. - May have clear liquids today from GI perspective. We'll plan to make NPO after midnight for possible EGD tomorrow. - Thank you for allowing us to participate in the care of this patient. Please call with any acute changes, questions or concerns. Please see addendum below with additional recommendation from my supervising physician. Supervising Physician Co-Signing Physician Notes Patient is a very pleasant 80-year-old gentleman that we are asked to see regarding an upper GI bleed. He states that he has had melanotic stools for the past 10 days. He denies any issues with abdominal pain or changes in his appetite. He denies any NSAID use. He is maintained on Xarelto for A-fib. His last dose was last evening. He states he had a syncopal episode as an outpatient recently. He has been started on IV Protonix. His hemoglobin has dropped about 2 g since admission. He has been hemodynamically stable. EGD in 2022 with concern for mild portal hypertensive gastropathy. He has no history of cirrhosis. His LFTs are normal as are his platelets. We will plan for an EGD tomorrow and allow his Xarelto to fully washout. Of note, he did have a markedly elevated troponin level on admission. Echocardiogram was without any significant findings. He has been cleared for an EGD to look for any source of bleeding. History of Present Illness Reason for Consultation: UGIB Requesting Physician: Liane AGUILAR Attending Physician: Olinda Cordero MD History of Present Illness 80yowm with h/o COPD, CKD 3, CAD, T2DM, GERD Afib on Xarelto, AML s/p Stem Cell transplant 2011 is seen today on GI rounds for UGIB. Patient presented due to 10 days of black tarry stools and a syncopal event 07/01 with fall. He was found to have a hemoglobin of 11.3, HCT 32.6, BUN 50, and troponin elevated to 276.1. He is being admitted for a GI bleed and for further cardiac workup. He reports that he was eating lots of black licorice when he noted his stools started to turn black about 10 days ago. Then he noted that he started to have difficulty with urination. He saw his PCP where he was started on a UA for UTI. His symptoms progressed with "gurgling" in his abdomen and stools became more frequently, greasy and "jet black". He returned to PCP where antibiotics where stopped and he was sent to ER. He reports that he had about 1 soft black stool yesterday and this morning. Abdominal pain has resolved. His last Xarelto was taken last night at 5 pm. He denies any fevers, chills, SOB, CP, abdominal pain, N/V/D, red blood in stools. We reviewed his pertinent past medical history. He had EGD and Colonoscopy for w/u melena in 2022 - EGD revealed portal hypertensive gastropathy. Esophagus and duodenum were normal. No biopsies collected. Colonoscopy revealed melanosis and diverticulosis of descending colon. Cardiac w/u ordered by primary team - Troponins every 6 hours, Echocardiogram and ECG PRN CP. Social history - Former tobacco and alcohol use. Quit 20+ years ago. No NSAID or steroid use. Surgical History - EGD, Colonoscopy 2022. Knee replacement. Hernia repair. Cardiac Catheterization - no stents placed - Follows with Dr. Korin Palmer. Stem Cell transplant 2011. Family history - No celiac, IBD or GI cancers. Pertinent Diagnostics: ER CBC - Hgb 11.3g/dl, Hct 32.6, Plt 220, WBC 9.19. ER BMP - Glucose 144, BUN 50, Cr 1.64, Cl 103, CO2 23, Na 136, K 3.8. ER Troponin 276.1 => 258.6 Troponin 07/02/25 - 278.3 Renal 07/02/25 - BUN 46, Cr 1.63 CBC 07/02/25 - Hgb 9.2, Hct 25.8, Plt 197, WBC 6.25 CT abd/pelvis 07/01/25 IMPRESSION: 1. Extensive diverticulosis of the descending and sigmoid colon. Follow-up colonoscopy recommended for more specific evaluation of the hematochezia. 2. Extensive atherosclerotic atherosclerotic calcification with small infrarenal aneurysm with a maximum diameter of 2.8 cm at this time. 3. 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 This would be better evaluated with CTA and/or MRA exam. 4. Otherwise negative for acute abnormalities at this time. Electronically signed by Johnnie Padilla 07-01-2025 8:11 PM EGD 06/2023 Dr. Dietz Indication - Melena Findings: The esophagus was normal. There was a suggestion of mild portal hypertensive gastropathy found in the entire examined stomach. The examined duodenum was normal. Impression: - Normal esophagus. - Portal hypertensive gastropathy. Unaware the patient has liver disease so this might not be the case. Could be bleeding cause but may need to have colonoscopy later on or as an outpatient. - Normal examined duodenum. - No specimens collected. Colonoscopy 08/2023 Dr. Dietz Findings: A diffuse area of moderate melanosis was found in the entire colon. Multiple medium-mouthed diverticula were found in the sigmoid colon and descending colon. Multiple sessile polyps were found in the transverse colon, ascending colon and cecum. The polyps were small in size. Polypectomy was not attempted because of small size and his need for anticoagulation Impression: - Melanosis in the colon. - Diverticulosis in the sigmoid colon and in the descending colon. - Multiple small polyps in the transverse colon, in the ascending colon and in the cecum. Resection not attempted. - No specimens collected. Allergies Allergy/AdvReac Type Severity Reaction Status Date / Time nitrofurantoin Allergy Severe SHORT OF Verified 07/01/25 19:55 [From Macrobid] BREATH, DIZZY, LIGHTHEADED, NAUSEA/VOMITING Home Medications Medication Instructions Recorded Confirmed Type fluticasone fur. 200 mcg-umeclid 1 inh inhalation QAM 07/01/23 07/01/25 History 62.5 mcg-vilant 25 mcg inhalat.powder (Trelegy Ellipta) ipratropium 0.5 mg-albuterol 3 mg 3 ml inhalation Q6H PRN Shortness 07/01/23 07/01/25 History (2.5 mg base)/3 mL nebulization Of Breath soln magnesium oxide 400 mg (241.3 mg 400 mg PO BID 07/01/23 07/01/25 History magnesium) tablet ranolazine 500 mg tablet,extended 500 mg PO BID 07/01/23 07/01/25 History release,12 hr rivaroxaban 15 mg tablet (Xarelto) 15 mg PO HS 07/01/23 07/01/25 History rosuvastatin 5 mg tablet 5 mg PO QAM 07/01/23 07/01/25 History diltiazem HCl 240 mg 240 mg PO QAM 08/17/23 07/01/25 History capsule,extended release 24 hr furosemide 20 mg tablet 20 - 40 mg PO UD 08/17/23 07/01/25 History fluticasone propionate 50 1 spray intranasal DAILY PRN 07/01/25 07/01/25 History mcg/actuation nasal Congestion spray,suspension gabapentin 300 mg capsule 300 mg PO HS 07/01/25 07/01/25 History loratadine 10 mg tablet (Claritin) 10 mg PO DAILY PRN Congestion 07/01/25 07/01/25 History neomycin-bacitracn Zn-polymyxin 1 applic topical BID PRN APPLY TO 07/01/25 07/01/25 History 3.5 mg-500 unit-10,000 unit top EAR NEEDED oint semaglutide 1 mg/dose (4 mg/3 mL) 1 mg subcut WK 07/01/25 07/01/25 History subcutaneous pen injector (Ozempic) tamsulosin 0.4 mg capsule 0.4 mg PO DAILY 07/01/25 07/01/25 History Patient History Medical History Neuropathy Hx of fracture of nose multiple times in the past (years ago) Sleep apnea cpap Chronic obstructive pulmonary disease GI bleed 06/2023, recently hospitalized at [facility] for 5 days; found to have diverticulitis Non-ST elevation [place] (NSTEMI) pt denies Surgical History History of total right knee replacement History of total left knee replacement Hx of umbilical hernia repair done w/cholecystectomy Hx of cholecystectomy Hx of colonoscopy History of cardiac cath ~10-12 years, [facility]; f/u fredrick jiménez 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, [facility] [place] History of esophagogastroduodenoscopy (EGD) Social History Smoking Status: Former smoker Tobacco Type: Cigarettes Smoking End Date: 40 years ago; Second Hand Exposure: No; Do You Dip or Chew Tobacco: No; Tobacco Cessation Education Requested by Patient: No Hx Alcohol Use: No Hx Substance Use: No Preferred Language: Pakistani Communication Ability: Effective Road Maker Required: No Beliefs That Will Affect Care: None Current Living Situation: Alone Other Information That Helps Us Care for You: No Feels Safe at Home: Yes Safety Concerns: Feels Safe At This Time Assistive Devices: None Review of Systems Review of Systems: See HPI Physical Exam Physical Exam: Constitutional: NAD. Alert. Answering questions appropriately. Respiratory: Breathing is even, non-labored. Lungs maya are clear to auscultation anteriorly. Cardiovascular: Irregular irregular rhythm. Rate controlled. No murmurs, rubs or gallops appreciated. Gastrointestinal (Abdomen): Normoactive bowel sounds x4, soft, non-distended, non-tender. Musculoskeletal: Lying in bed comfortably. No peripheral edema. Results & Data Vital Signs (Past 12 Hours) Vital Signs Temp Pulse Pulse Resp BP BP Pulse Ox 07/02/25 07:08 97.7 F 106 H 23 126/70 95 07/02/25 06:37 89 07/02/25 03:06 98.0 F 91 H 18 102/67 93 07/01/25 22:53 97.7 F 73 19 122/71 97 07/01/25 22:10 97.9 F 07/01/25 21:51 90 22 115/73 96 07/01/25 21:21 98 H 22 112/61 91 O2 Del Method 07/02/25 07:08 Room Air 07/02/25 06:37 07/02/25 03:06 Room Air 07/01/25 22:53 Room Air 07/01/25 22:10 Room Air 07/01/25 21:51 Room Air 07/01/25 21:21 Room Air PG Care Time/CCT Total # of Minutes Spent Total Time Spent with Patient: Total time spent is greater than 50% in coordination of care (as documented) at patient's floor/unit and/or counseling patient: Coding Level of Care Code 17795 IN/OBS CONSULT LVL 3,45M Diagnoses UGIB (upper gastrointestinal bleed) K92.2
--- NOTE | 2025-07-02 10:30 | XCELERA ---
[id number]
--- NOTE | 2025-07-02 11:14 | Urology Consultation ---
Date of Consultation July 02, 2025 Assessment & Plan (1) Incomplete bladder emptying: Plan 80-year-old male admitted for GI bleed and cardiac workup. Patient developed difficulty voiding and was found to have an elevated bladder scan. Nursing was unable to place Pineda catheter. Urology is consulted for difficult Pineda placement. Patient with meatal stenosis/distal urethral stricture Performed dilatation of distal urethra at bedside with S dilators Dr. Law placed 16 Tongan Pineda catheter Maintain Pineda catheter for passive dilation Can do voiding trial in a few days if he remains inpatient or can follow-up with urology for voiding trial as outpatient Continue medical management per hospital medicine See attending note for further details of procedure/plan of care will sign off, please contact our service with any additional questions or concerns Supervising Physician Co-Signing Physician Notes Patient with a meatal stenosis I was able to utilize sequential male urethral sounds to dilate his urethra to 20 Tongan before placement of a 16 Tongan catheter without difficulty. Sterile prep technique was used throughout. Plan remove the catheter when medically stable. History of Present Illness Reason for Consultation: pineda placement Attending Physician: Olinda Cordero MD History of Present Illness This is an 80-year-old male with past medical history of CKD, CHF, CAD, A-fib on Xarelto, COPD and type 2 diabetes who presents to the emergency department on 06/29/2025 for evaluation of black tarry stools and syncopal event. Lab work showed a hemoglobin of 11.3 and troponin elevated to 276.1. He was admitted for a GI bleed and for further cardiac workup. Urology is consulted today for Pineda catheter placement. Patient reported difficulty urinating, dribbling. Nursing obtained bladder scan which was elevated at 473 mL. Pineda catheter was attempted by nursing x 2, but unable to place catheter Labs todayWBC 6.25, hemoglobin 9.2, hematocrit 25.8, creatinine 1.63, troponin 258.3 Patient seen and examined at bedside. He is resting comfortably in bed, arouses easily to his name. He reports weak stream, dribbling. He reports having a circumcision approximately 10 months ago in [place] due to phimosis. Since then, he has noticed his urine stream spraying. Reports increased nocturia recently. Allergies Allergy/AdvReac Type Severity Reaction Status Date / Time nitrofurantoin Allergy Severe SHORT OF Verified 07/01/25 19:55 [From Macrobid] BREATH, DIZZY, LIGHTHEADED, NAUSEA/VOMITING Home Medications Medication Instructions Recorded Confirmed Type fluticasone fur. 200 mcg-umeclid 1 inh inhalation QAM 07/01/23 07/01/25 History 62.5 mcg-vilant 25 mcg inhalat.powder (Trelegy Ellipta) ipratropium 0.5 mg-albuterol 3 mg 3 ml inhalation Q6H PRN Shortness 07/01/23 07/01/25 History (2.5 mg base)/3 mL nebulization Of Breath soln magnesium oxide 400 mg (241.3 mg 400 mg PO BID 07/01/23 07/01/25 History magnesium) tablet ranolazine 500 mg tablet,extended 500 mg PO BID 07/01/23 07/01/25 History release,12 hr rivaroxaban 15 mg tablet (Xarelto) 15 mg PO HS 07/01/23 07/01/25 History rosuvastatin 5 mg tablet 5 mg PO QAM 07/01/23 07/01/25 History diltiazem HCl 240 mg 240 mg PO QAM 08/17/23 07/01/25 History capsule,extended release 24 hr furosemide 20 mg tablet 20 - 40 mg PO UD 08/17/23 07/01/25 History fluticasone propionate 50 1 spray intranasal DAILY PRN 07/01/25 07/01/25 History mcg/actuation nasal Congestion spray,suspension gabapentin 300 mg capsule 300 mg PO HS 07/01/25 07/01/25 History loratadine 10 mg tablet (Claritin) 10 mg PO DAILY PRN Congestion 07/01/25 07/01/25 History neomycin-bacitracn Zn-polymyxin 1 applic topical BID PRN APPLY TO 07/01/25 07/01/25 History 3.5 mg-500 unit-10,000 unit top EAR NEEDED oint semaglutide 1 mg/dose (4 mg/3 mL) 1 mg subcut WK 07/01/25 07/01/25 History subcutaneous pen injector (Ozempic) tamsulosin 0.4 mg capsule 0.4 mg PO DAILY 07/01/25 07/01/25 History Patient History Medical History Neuropathy Hx of fracture of nose multiple times in the past (years ago) Sleep apnea cpap Chronic obstructive pulmonary disease GI bleed 06/2023, recently hospitalized at [facility] for 5 days; found to have diverticulitis Non-ST elevation [place] (NSTEMI) pt denies Surgical History History of total right knee replacement History of total left knee replacement Hx of umbilical hernia repair done w/cholecystectomy Hx of cholecystectomy Hx of colonoscopy History of cardiac cath ~10-12 years, failed stress test, [facility], no stents; f/u fredrick jiménez 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, [facility] [place] History of esophagogastroduodenoscopy (EGD) Social History Smoking Status: Former smoker Tobacco Type: Cigarettes Smoking End Date: 40 years ago; Second Hand Exposure: No; Do You Dip or Chew Tobacco: No; Tobacco Cessation Education Requested by Patient: No Hx Alcohol Use: No Hx Substance Use: No Preferred Language: Zimbabwean Communication Ability: Effective C.O.D. Audit Clerk Required: No Beliefs That Will Affect Care: None Current Living Situation: Alone Other Information That Helps Us Care for You: No Feels Safe at Home: Yes Safety Concerns: Feels Safe At This Time Assistive Devices: None Review of Systems Review of Systems: All systems reviewed & are unremarkable except as noted in HPI & below Physical Exam Constitutional: well developed and well nourished; no acute distress Respiratory: normal respiratory effort; no respiratory distress and no labored breathing Gastrointestinal (Abdomen): Inspection/Auscultation: abdomen normal to inspection Musculoskeletal: Head/Neck/Chest: normocephalic Neurologic: moves all extremities and awake Psychiatric: Orientation: alert and oriented x 3 Genitourinary: Patient was identified and informed consent was obtained. On exam, meatal stenosis was noted. Patient was prepped with Betadine and draped in the sterile fashion. Well lubricated S dilators were passed through his distal urethra starting at 10 Fr and proceeding to 18 Fr. A well-lubricated 16 Tongan Pineda catheter was inserted per urethra, still met with some resistance at the distal urethra, so stopped procedure. See attending procedure note. Results & Data Vital Signs (Past 12 Hours) Vital Signs Temp Pulse Pulse Resp BP Pulse Ox O2 Del Method 07/02/25 10:42 36.8 C 96 H 19 116/75 95 Room Air 07/02/25 10:00 81 07/02/25 07:08 36.5 C 106 H 23 126/70 95 Room Air 07/02/25 06:37 89 07/02/25 03:06 36.7 C 91 H 18 102/67 93 Room Air PG Care Time/CCT Total # of Minutes Spent Total Time Spent with Patient: Total time spent is greater than 50% in coordination of care (as documented) at patient's floor/unit and/or counseling patient: Coding Level of Care Code 38455 INT INP/OBS CARE 2/55MIN Diagnoses Incomplete bladder emptying R33.9 Comment code for difficult pineda placement
--- NOTE | 2025-07-02 12:29 | Electrocardiogram Report ---
Test Reason : Blood Pressure : */* mmHG Vent. Rate : 102 BPM Atrial Rate : 111 BPM P-R Int : * ms QRS Dur : 120 ms QT Int : 392 ms P-R-T Axes : * 14 -13 degrees QTcB Int : 510 ms Atrial fibrillation with rapid ventricular response with premature ventricular or aberrantly conducte d complexes Right bundle branch block Nonspecific ST abnormality Abnormal ECG When compared with ECG of 07-Jul-2023 10:31, No significant change Confirmed by Henry Davila ([id number]) on 07/02/2025 12:29:20 PM Referred By: REFERRED SELF Confirmed By: Henry Davila
[2025-07-02 13:34] LABS: Hematocrit (blood only) 26.7 % (42.0-52.0); Hemoglobin 9.1 g/dl (14.0-18.0)
--- NOTE | 2025-07-02 14:05 | Hospitalist Progress Note ---
Date of Service July 02, 2025 Assessment & Plan (1) UGIB (upper gastrointestinal bleed): (2) Elevated troponin: (3) Syncope: (4) Acute blood loss anemia: Plan Patient is an 80-year-old male with a past medical history of CKD stage III, A- fib on Xarelto, COPD, type II DM, obstructive CAD, chronic HFpEF, portal gastropathy, leukemia s/p bone marrow transplant, B12 deficiency anemia who presents with 10 days of black tarry stools and a syncopal event 07/01. He was found to have a hemoglobin of 11.3, HCT 32.6, BUN 50, and troponin elevated to 276.1. He is admitted for a GI bleed with acute blood loss anemia and for further cardiac workup. #UGIB/acute blood loss anemia- hx of in 2022 possibly 2/2 portal hypertensive gastropathy. Likely upper GI bleed given melena. Hemodynamically stable at time of admission. Hgb 11.3 (unclear as to patient's baseline when not actively bleeding), BUN 50. Hemoglobin dropped to 9.0 and stabilized, only 1 melanotic stool since admission, remains hemodynamically stable. Appreciate GI consultation -Continue pantoprazole 40mg IV BID -Clear liquids diet today and can allow p.o. medications and n.p.o. after midnight as per GI Continue to hold Xarelto, last dose 07/01 PM prior to arrival to ED - Plan for EGD on 07/03 -Follow CBC in the morning #Elevated troponin/myocardial demand ischemia/mild-moderate aortic stenosis- trop 276.1/258.6/263/258 on serial repeats. Patient denies any CP, however did have episode of syncope 07/01. Likely 2/2 demand with above (elevated in 100s with prior GIB). His ECG is without acute ischemic changes. He can easily achieve 4 METS without angina. He has a mildly elevated troponin which has remained stable and is not indicative of acute coronary syndrome. He has no chest pain or angina and his echocardiogram is with preserved EF and without wall motion abnormalities. Suspect elevated troponin secondary to orthostasis from dehydration causing syncope and in the setting of moderate aortic stenosis could cause a troponin leak/myocardial demand ischemia. He is medically optimized for anesthesia for EGD on 07/03 - monitor on tele #Syncopepatient endorses feeling symptomatic with dizziness prior to episode, denies any chest pain. Likely secondary to poor p.o. intake with dehydration and acute blood loss anemia with upper GI bleed above. Head CT negative for acute changes, left knee XR showed small right joint effusion and he has no knee pain. He received IV fluids and is hemodynamically stable. Echocardiogram with mild-moderate aortic stenosis which would not cause syncope Continue holding home Lasix Continue to treat GI bleed Monitor on telemetry for arrhythmia-thus far rate controlled atrial fibrillation #UTI - reported outpatient UTI on nitrofurantoin, with numerous side effects (discontinued 07/01 AM). UA here is normal - No need for further antibiotics-discontinue Rocephin #A-fibrates elevated with diltiazem on hold - Resume home diltiazem and continue to hold Xarelto for GI bleed # Chronic HFpEFEF remains preserved on echo - Continue holding Lasix with n.p.o. status #CKD stage III-creatinine at baseline at 1.6 - Avoid nephrotoxins and renally dose medications #COPDno acute issues - Continue home inhalers #B12 deficiency anemia-B12 level here is borderline low at 225 and he has not been taking supplementation at home - Give B12 1000 mcg IM x 1 and start p.o. 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 Follow in outpatient setting #SMA stenosisquestionable SMA stenosis noted on AP CT. He has no symptoms of abdominal pain ever Follow-up in outpatient setting VTE ppx: SCDs, holding Xarelto with GI bleed Dispo: Continued stay on PCU Admission and Anticipated Discharge Date Admission Date: July 01, 2025 Subjective Patient had 1 dark stool this morning as per nursing but none since then. He denies any further nausea or vomiting, no abdominal pains. He denies lightheadedness, chest pain or shortness of breath. I discussed his care with the GI PA As well as the urology PASTRY FINISHER. He had a Su catheter placed for meatal stenosis today. Patient denies any pain in the left knee. Patient reports he is active and can go up and down a flight of stairs without having chest pain or shortness of breath. He had a cardiac catheterization years ago that did not have any obstructive CAD. He has had stress test since then which he reports were normal. Telemetry with atrial fibrillation with rates in 80s to 100s Physical Exam Constitutional: WD/WN, vitals as above Neck: trachea midline, no thyromegaly Respiratory: normal respiratory effort, lungs clear to auscultation Cardiovascular: Rate/Rhythm: regular rate and + irregularly irregular Heart Sounds: no murmur Extremities: no edema Chest (Breasts): Chest: normal inspection of chest Gastrointestinal (Abdomen): normal bowel sounds, soft, nontender, no hepatosplenomegaly Musculoskeletal: Extremities: extremities normal to inspection; no cyanosis and no clubbing Skin: no rashes, warm and dry Neurologic: moves all extremities and awake; no focal motor deficits Psychiatric: A+Ox3, euthymic affect Lymphatic: no lymphedema Results & Data Results & Data Vital Signs (Past 12 Hours) Vital Signs Temp Pulse Pulse Resp BP Pulse Ox O2 Del Method 07/02/25 10:42 36.8 C 96 H 19 116/75 95 Room Air 07/02/25 10:00 81 07/02/25 07:08 36.5 C 106 H 23 126/70 95 Room Air 07/02/25 06:37 89 07/02/25 03:06 36.7 C 91 H 18 102/67 93 Room Air Laboratory Results CBC, serial H&H, BMP, magnesium, troponin, B12, folate reviewed Diagnostic Findings Echocardiogram reviewed-preserved EF, no wall motion abnormalities, mild-moderate aortic stenosis, mild-moderate mitral regurgitation, moderate tricuspid regurgitation PG Care Time/CCT Total # of Minutes Spent Total Time Spent with Patient: Total time spent is greater than 50% in coordination of care (as documented) at patient's floor/unit and/or counseling patient: Coding Level of Care Code 01701 SUB INP/OBS CARE 3/50MIN Diagnoses UGIB (upper gastrointestinal bleed) K92.2 Elevated troponin R79.89 Syncope R55 Syncope type: unspecified Acute blood loss anemia D62 (3) Syncope Syncope type: unspecified Qualified Code(s): R55 - Syncope and collapse
[2025-07-02] MEDS: CYANOCOBALAMIN 1000 MCG/ML VIAL IM ONE (14:38)
[2025-07-02 19:18] LABS: Hematocrit (blood only) 26.7 % (42.0-52.0); Hemoglobin 9.0 g/dl (14.0-18.0)
[2025-07-02] MEDS: RANOLAZINE 500 MG ER TAB PO SCH (20:16)
[2025-07-02] MEDS: GABAPENTIN 300 MG CAP PO SCH (20:16)
[2025-07-02] MEDS: TAMSULOSIN HCL 0.4 MG CAP PO SCH (20:17)
[2025-07-02] MEDS ORDERED: cefTRIAXone SODIUM 2,000 MG/50 ML BAG IV SCH (21:00)
[2025-07-03 06:26] LABS: Hematocrit (blood only) 25.4 % (42.0-52.0); Hemoglobin 8.8 g/dl (14.0-18.0); Immature Granulocytes # (auto) 0.02 K/uL (0.01-0.20); Immature Granulocytes % (auto) 0.3 %; Mean Corpuscular Hemoglobin 35.1 pg (25.0-34.0); Mean Corpuscular Volume 101.2 fL (80.0-100.0); Platelet Count 214 K/uL (130-400); RDW Standard Deviation 62.8 fL (36.4-46.3); Red Blood Count 2.51 M/uL (4.70-6.10); White Blood Count 6.93 K/ul (4.8-10.8)
[2025-07-03 06:46] LABS: Anion Gap 7.0 (3-11); Blood Urea Nitrogen 35.0 mg/dl (6-23); Calcium 8.6 mg/dl (8.6-10.3); Carbon Dioxide 23.0 mmol/L (21-32); Chloride 108.0 mmol/L (98-107); Creatinine Clr Calc Pharmacy 39.6 ml/min; Glucose 147.0 mg/dl (70-99(Fasting)); Magnesium 2.0 mg/dl (1.7-2.4); Potassium 4.2 mmol/L (3.5-5.1); Sodium 138.0 mmol/L (136-145)
--- NOTE | 2025-07-03 09:36 | History & Physical Bridge Note ---
Date of Service July 03, 2025 History & Physical Bridge Note I have examined the patient, reviewed the History & Physical and in the interval since the performance of the History & Physical I have noted the following changes of clinical significance: no changes noted Spoke with patient today. No concerns. He has been NPO since midnight. VSS. Plan to proceed with EGD as planned.
--- NOTE | 2025-07-03 13:52 | Anesthesiology Consultation ---
Date of Service July 03, 2025 Assessment & Plan Consults Requested medical & cardiac Pulmonary ASA ASA3 Proposed Anesthesia Anesthesia Type: MAC Risk / Benefits Reviewed With: PT / POA / Parent / Guardian, Accepts Plan and Informed Consent Obtained History Surgery Operation Date: 07/03/25 16:30 Proposed Procedures p Esophagogastroduodenoscopy Dr. Antonina Sarkar, DO Height/Weight Height: 5 ft 11 in Weight: 99.9 kg Allergies Allergy/AdvReac Type Severity Reaction Status Date / Time nitrofurantoin Allergy Severe SHORT OF Verified 07/03/25 13:49 [From Macrobid] BREATH, DIZZY, LIGHTHEADED, NAUSEA/VOMITING Medications Home Medications Medication Instructions Recorded Confirmed Last Taken fluticasone fur. 200 mcg-umeclid 1 inh inhalation QAM 07/01/23 07/01/25 07/01/25 62.5 mcg-vilant 25 mcg inhalat.powder (Trelegy Ellipta) ipratropium 0.5 mg-albuterol 3 mg 3 ml inhalation Q6H PRN Shortness 07/01/23 07/01/25 08/24/23 (2.5 mg base)/3 mL nebulization Of Breath soln magnesium oxide 400 mg (241.3 mg 400 mg PO BID 07/01/23 07/01/25 07/01/25 magnesium) tablet ranolazine 500 mg tablet,extended 500 mg PO BID 07/01/23 07/01/25 07/01/25 release,12 hr rivaroxaban 15 mg tablet (Xarelto) 15 mg PO HS 07/01/23 07/01/25 07/01/25 rosuvastatin 5 mg tablet 5 mg PO QAM 07/01/23 07/01/25 07/01/25 diltiazem HCl 240 mg 240 mg PO QAM 08/17/23 07/01/25 07/01/25 capsule,extended release 24 hr furosemide 20 mg tablet 20 - 40 mg PO UD 08/17/23 07/01/25 07/01/25 40 MG fluticasone propionate 50 1 spray intranasal DAILY PRN 07/01/25 07/01/25 Unknown mcg/actuation nasal Congestion spray,suspension gabapentin 300 mg capsule 300 mg PO HS 07/01/25 07/01/25 07/01/25 loratadine 10 mg tablet (Claritin) 10 mg PO DAILY PRN Congestion 07/01/25 07/01/25 Unknown neomycin-bacitracn Zn-polymyxin 1 applic topical BID PRN APPLY TO 07/01/25 07/01/25 Unknown 3.5 mg-500 unit-10,000 unit top EAR NEEDED oint semaglutide 1 mg/dose (4 mg/3 mL) 1 mg subcut WK 07/01/25 07/01/25 06/30/25 subcutaneous pen injector (Ozempic) tamsulosin 0.4 mg capsule 0.4 mg PO DAILY 07/01/25 07/01/25 07/01/25 Active Medications Generic Name Dose Route Start Last Admin Trade Name Freq PRN Reason Stop Dose Admin Diltiazem HCl 240 mg 07/02/25 09:00 07/03/25 09:24 Diltiazem Hcl 240 Mg Capcr PO 08/01/25 08:59 240 mg QAM TAYLOR Administration Fluticasone Furoate 1 puffs 07/02/25 09:00 07/03/25 08:59 Fluticasone Furoate 200mcg 14 Puffs/Inhaler INH 08/01/25 08:59 Not Given DAILY TAYLOR Gabapentin 300 mg 07/02/25 21:00 07/02/25 20:16 Gabapentin 300 Mg Cap PO 08/01/25 20:59 300 mg HS TAYLOR Administration Pantoprazole Sodium 40 mg in 10 mls @ 5 mls/min 07/02/25 09:00 07/03/25 08:58 Protonix IV 08/01/25 08:59 Not Given BID TAYLOR Melatonin 3 mg 07/02/25 00:07 07/02/25 20:16 Melatonin 3 Mg Tab PO 08/01/25 00:06 3 mg HS PRN Administration Sleep Ranolazine 500 mg 07/02/25 21:00 07/03/25 08:59 Ranolazine 500 Mg Er Tab PO 08/01/25 20:59 Not Given BID TAYLOR Rosuvastatin Calcium 5 mg 07/02/25 09:00 07/03/25 09:24 Rosuvastatin Calcium 5 Mg Tab PO 08/01/25 08:59 5 mg QAM TAYLOR Administration Tamsulosin HCl 0.4 mg 07/02/25 21:00 07/02/25 20:17 Tamsulosin Hcl 0.4 Mg Cap PO 08/01/25 20:59 0.4 mg HS TAYLOR Administration Umeclidinium/Vilanterol 1 puffs 07/02/25 09:00 07/03/25 08:59 Umeclidinium/Vilanterol 62.5/25mcg 7 Puffs/Inhaler INH 08/01/25 08:59 Not Given DAILY TAYLOR NPO Date Last Intake of Fluids: 07/03/25 Time Last Intake of Fluids: 07:30 Date Last Intake of Solids: 06/29/25 Time Last Intake of Solids: 00:00 Past Medical History Medical History Neuropathy Hx of fracture of nose multiple times in the past (years ago) Sleep apnea cpap Chronic obstructive pulmonary disease GI bleed 06/2023, recently hospitalized at [facility] for 5 days; found to have diverticulitis Non-ST elevation AL (NSTEMI) pt denies Exercise / Class Metabolic Activity II 4-5 Yardwork/Stairs/Walk up hill Past Surgical History Surgical History History of total right knee replacement History of total left knee replacement Hx of umbilical hernia repair done w/cholecystectomy Hx of cholecystectomy Hx of colonoscopy History of cardiac cath ~10-12 years, failed stress test, [facility], no stents; f/u fredrick jiménez 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, [facility] History of esophagogastroduodenoscopy (EGD) Past Anesthesia History No Hx of Anesthesia Complications and No Family Hx of Anesthesia Complications History of PONV No Hx of PONV and No Hx of Motion Sickness Social History Smoking Status: Former smoker Do You Dip or Chew Tobacco: No Smoking End Date: 40 years ago Hx Alcohol Use: No Hx Substance Use: No substance use type: does not use Physical Exam Vital Signs Last Vital Signs Temp 36.8 C 07/03/25 12:56 Pulse 81 07/03/25 12:56 Resp 18 07/03/25 12:56 BP 108/66 07/03/25 12:56 Pulse Ox 94 07/03/25 12:56 O2 Del Method Room Air 07/03/25 12:56 Constitutional no acute distress ENMT Mouth: no dentition abnormality Thyromental Distance: > or= 3.5 Finger Breadths Mallampati Class: III Neck normal visual inspection Respiratory normal respiratory effort; no respiratory distress Auscultation: lungs clear to auscultation bilaterally Cardiovascular Rate/Rhythm: regular rate and regular rhythm Heart Sounds: no murmur Musculoskeletal Spine: normal cervical ROM Psychiatric Orientation: alert and oriented x 3 Testing Laboratory Results 07/03/25 05:40 07/03/25 05:40 PT 15.6 Seconds (9.0-12.0) H 07/01/25 18:14 INR 1.5 (0.9-1.1) H 07/01/25 18:14 APTT 43 Seconds (21-31) H 07/01/25 18:14 Urine Color Yellow 07/02/25 07:10 Urine Appearance Clear (Clear) 07/02/25 07:10 Urine pH 5.5 (4.5-7.5) 07/02/25 07:10 Ur Specific [place] 1.043 (1.000-1.030) H 07/02/25 07:10 Urine Protein 1+ (Negative) H 07/02/25 07:10 Urine Glucose (UA) Negative (Negative) 07/02/25 07:10 Urine Ketones Trace (Negative) H 07/02/25 07:10 Urine Nitrite Negative (Negative) 07/02/25 07:10 Ur Leukocyte Esterase Trace (Negative) H 07/02/25 07:10 Urine WBC (Auto) 0-5 /hpf (0-5) 07/02/25 07:10 Urine RBC (Auto) 0-2 /hpf (0-2) 07/02/25 07:10 U Hyaline Cast (Auto) 0-2 /lpf (0-2) 07/02/25 07:10 U Epithel Cells (Auto) 6-10 /hpf (0-2) H 07/02/25 07:10 Urine Bacteria (Auto) None Seen (None Seen) 07/02/25 07:10 Blood Type O Positive 07/01/25 20:30 Antibody Screen NEGATIVE 07/01/25 20:30 Day of Procedure Evaluation. Date of Surgery July 03, 2025 Height/Weight Height: 5 ft 11 in Weight: 99.9 kg Vital Signs Last Vital Signs Temp 36.8 C 07/03/25 12:56 Pulse 81 07/03/25 12:56 Resp 18 07/03/25 12:56 BP 108/66 07/03/25 12:56 Pulse Ox 94 07/03/25 12:56 O2 Del Method Room Air 07/03/25 12:56 Allergies Allergy/AdvReac Type Severity Reaction Status Date / Time nitrofurantoin Allergy Severe SHORT OF Verified 07/03/25 13:49 [From Macrobid] BREATH, DIZZY, LIGHTHEADED, NAUSEA/VOMITING Medications Home Medications Medication Instructions Recorded Confirmed Last Taken fluticasone fur. 200 mcg-umeclid 1 inh inhalation QAM 07/01/23 07/01/25 07/01/25 62.5 mcg-vilant 25 mcg inhalat.powder (Trelegy Ellipta) ipratropium 0.5 mg-albuterol 3 mg 3 ml inhalation Q6H PRN Shortness 07/01/23 07/01/25 08/24/23 (2.5 mg base)/3 mL nebulization Of Breath soln magnesium oxide 400 mg (241.3 mg 400 mg PO BID 07/01/23 07/01/25 07/01/25 magnesium) tablet ranolazine 500 mg tablet,extended 500 mg PO BID 07/01/23 07/01/25 07/01/25 release,12 hr rivaroxaban 15 mg tablet (Xarelto) 15 mg PO HS 07/01/23 07/01/25 07/01/25 rosuvastatin 5 mg tablet 5 mg PO QAM 07/01/23 07/01/25 07/01/25 diltiazem HCl 240 mg 240 mg PO QAM 08/17/23 07/01/25 07/01/25 capsule,extended release 24 hr furosemide 20 mg tablet 20 - 40 mg PO UD 08/17/23 07/01/25 07/01/25 40 MG fluticasone propionate 50 1 spray intranasal DAILY PRN 07/01/25 07/01/25 Unknown mcg/actuation nasal Congestion spray,suspension gabapentin 300 mg capsule 300 mg PO HS 07/01/25 07/01/25 07/01/25 loratadine 10 mg tablet (Claritin) 10 mg PO DAILY PRN Congestion 07/01/25 07/01/25 Unknown neomycin-bacitracn Zn-polymyxin 1 applic topical BID PRN APPLY TO 07/01/25 07/01/25 Unknown 3.5 mg-500 unit-10,000 unit top EAR NEEDED oint semaglutide 1 mg/dose (4 mg/3 mL) 1 mg subcut WK 07/01/25 07/01/25 06/30/25 subcutaneous pen injector (Ozempic) tamsulosin 0.4 mg capsule 0.4 mg PO DAILY 07/01/25 07/01/25 07/01/25 Active Medications Generic Name Dose Route Start Last Admin Trade Name Freq PRN Reason Stop Dose Admin Diltiazem HCl 240 mg 07/02/25 09:00 07/03/25 09:24 Diltiazem Hcl 240 Mg Capcr PO 08/01/25 08:59 240 mg QAM TAYLOR Administration Fluticasone Furoate 1 puffs 07/02/25 09:00 07/03/25 08:59 Fluticasone Furoate 200mcg 14 Puffs/Inhaler INH 08/01/25 08:59 Not Given DAILY TAYLOR Gabapentin 300 mg 07/02/25 21:00 07/02/25 20:16 Gabapentin 300 Mg Cap PO 08/01/25 20:59 300 mg HS TAYLOR Administration Pantoprazole Sodium 40 mg in 10 mls @ 5 mls/min 07/02/25 09:00 07/03/25 08:58 Protonix IV 08/01/25 08:59 Not Given BID TAYLOR Melatonin 3 mg 07/02/25 00:07 07/02/25 20:16 Melatonin 3 Mg Tab PO 08/01/25 00:06 3 mg HS PRN Administration Sleep Ranolazine 500 mg 07/02/25 21:00 07/03/25 08:59 Ranolazine 500 Mg Er Tab PO 08/01/25 20:59 Not Given BID TAYLOR Rosuvastatin Calcium 5 mg 07/02/25 09:00 07/03/25 09:24 Rosuvastatin Calcium 5 Mg Tab PO 08/01/25 08:59 5 mg QAM TAYLOR Administration Tamsulosin HCl 0.4 mg 07/02/25 21:00 07/02/25 20:17 Tamsulosin Hcl 0.4 Mg Cap PO 08/01/25 20:59 0.4 mg HS TAYLOR Administration Umeclidinium/Vilanterol 1 puffs 07/02/25 09:00 07/03/25 08:59 Umeclidinium/Vilanterol 62.5/25mcg 7 Puffs/Inhaler INH 08/01/25 08:59 Not Given DAILY TAYLOR Past Anesthesia History No Hx of Anesthesia Complications and No Family Hx of Anesthesia Complications History of PONV No Hx of PONV and No Hx of Motion Sickness NPO Date Last Intake of Fluids: 07/03/25 Time Last Intake of Fluids: 07:30 Date Last Intake of Solids: 06/29/25 Time Last Intake of Solids: 00:00 Home Medications Home Medications Medication Instructions Recorded Confirmed Last Taken fluticasone fur. 200 mcg-umeclid 1 inh inhalation QAM 07/01/23 07/01/25 07/01/25 62.5 mcg-vilant 25 mcg inhalat.powder (Trelegy Ellipta) ipratropium 0.5 mg-albuterol 3 mg 3 ml inhalation Q6H PRN Shortness 07/01/23 07/01/25 08/24/23 (2.5 mg base)/3 mL nebulization Of Breath soln magnesium oxide 400 mg (241.3 mg 400 mg PO BID 07/01/23 07/01/25 07/01/25 magnesium) tablet ranolazine 500 mg tablet,extended 500 mg PO BID 07/01/23 07/01/25 07/01/25 release,12 hr rivaroxaban 15 mg tablet (Xarelto) 15 mg PO HS 07/01/23 07/01/25 07/01/25 rosuvastatin 5 mg tablet 5 mg PO QAM 07/01/23 07/01/25 07/01/25 diltiazem HCl 240 mg 240 mg PO QAM 08/17/23 07/01/25 07/01/25 capsule,extended release 24 hr furosemide 20 mg tablet 20 - 40 mg PO UD 08/17/23 07/01/25 07/01/25 40 MG fluticasone propionate 50 1 spray intranasal DAILY PRN 07/01/25 07/01/25 Unknown mcg/actuation nasal Congestion spray,suspension gabapentin 300 mg capsule 300 mg PO HS 07/01/25 07/01/25 07/01/25 loratadine 10 mg tablet (Claritin) 10 mg PO DAILY PRN Congestion 07/01/25 07/01/25 Unknown neomycin-bacitracn Zn-polymyxin 1 applic topical BID PRN APPLY TO 07/01/25 07/01/25 Unknown 3.5 mg-500 unit-10,000 unit top EAR NEEDED oint semaglutide 1 mg/dose (4 mg/3 mL) 1 mg subcut WK 07/01/25 07/01/25 06/30/25 subcutaneous pen injector (Ozempic) tamsulosin 0.4 mg capsule 0.4 mg PO DAILY 07/01/25 07/01/25 07/01/25 Active Medications Generic Name Dose Route Start Last Admin Trade Name Freq PRN Reason Stop Dose Admin Diltiazem HCl 240 mg 07/02/25 09:00 07/03/25 09:24 Diltiazem Hcl 240 Mg Capcr PO 08/01/25 08:59 240 mg QAM TAYLOR Administration Fluticasone Furoate 1 puffs 07/02/25 09:00 07/03/25 08:59 Fluticasone Furoate 200mcg 14 Puffs/Inhaler INH 08/01/25 08:59 Not Given DAILY TAYLOR Gabapentin 300 mg 07/02/25 21:00 07/02/25 20:16 Gabapentin 300 Mg Cap PO 08/01/25 20:59 300 mg HS TAYLOR Administration Pantoprazole Sodium 40 mg in 10 mls @ 5 mls/min 07/02/25 09:00 07/03/25 08:58 Protonix IV 08/01/25 08:59 Not Given BID TAYLOR Melatonin 3 mg 07/02/25 00:07 07/02/25 20:16 Melatonin 3 Mg Tab PO 08/01/25 00:06 3 mg HS PRN Administration Sleep Ranolazine 500 mg 07/02/25 21:00 07/03/25 08:59 Ranolazine 500 Mg Er Tab PO 08/01/25 20:59 Not Given BID TAYLOR Rosuvastatin Calcium 5 mg 07/02/25 09:00 07/03/25 09:24 Rosuvastatin Calcium 5 Mg Tab PO 08/01/25 08:59 5 mg QAM TAYLOR Administration Tamsulosin HCl 0.4 mg 07/02/25 21:00 07/02/25 20:17 Tamsulosin Hcl 0.4 Mg Cap PO 08/01/25 20:59 0.4 mg HS TAYLOR Administration Umeclidinium/Vilanterol 1 puffs 07/02/25 09:00 07/03/25 08:59 Umeclidinium/Vilanterol 62.5/25mcg 7 Puffs/Inhaler INH 08/01/25 08:59 Not Given DAILY TAYLOR Exercise / Class Metabolic Activity Metabolic Activity: II 4-5 Yardwork/Stairs/Walk up hill Physical Exam Constitutional: no acute distress Mouth: no dentition abnormality Thyromental Distance: > or= 3.5 Finger Breadths Mallampati Class: III Neck: + visual inspection normal Respiratory: + respiratory effort normal and + clear to auscultation bilaterally; no respiratory distress Cardiovascular: + regular rate and + regular rhythm; no murmur Musculoskeletal: no limited cervical ROM Psychiatric: + alert and + oriented x 3 ASA ASA3 Proposed Anesthesia Proposed Anesthesia: MAC Risk / Benefits Reviewed With: PT / POA / Parent / Guardian, Accepts Plan and Informed Consent Obtained
--- NOTE | 2025-07-03 15:34 | GI REPORT ---
[facility] Patient: ZACK BLAS : 1945 Sex at : Male Age: 80 Years Procedure: Upper GI endoscopy Date: 07/03/2025 Attending Physician: Shannon Sarkar DO Referring MD: Referred Self; Olinda Cordero Md Indications: - Recent gastrointestinal bleeding, Pt admitted with melena. On Xarelto. Last dose 2 days ago. No active bleeding. See full consult. Medications: - Monitored Anesthesia Care Complications: - No immediate complications. Estimated Blood Loss: - Estimated blood loss: None. Procedure: - ASA Grade Assessment: II - A patient with mild systemic disease. - The egd scope was introduced through the mouth and advanced to the second part of the duodenum. - The upper GI endoscopy was accomplished without difficulty. - The patient tolerated the procedure well. Findings: - The Z-line was irregular and was found 40 cm from the incisors. - A small hiatal hernia was present. - The entire examined stomach was normal. Biopsies were taken with a cold forceps for Helicobacter pylori testing. - Patchy severely erythematous mucosa without active bleeding and with no stigmata of bleeding was found in the duodenal bulb. Biopsies for histology were taken with a cold forceps. - A medium non-bleeding diverticulum was found in the area of the papilla. - The exam was otherwise without abnormality. Impression: - Z-line irregular, 40 cm from the incisors. - Small hiatal hernia. - Normal stomach. Biopsied. - Erythematous duodenopathy. Biopsied. - Non-bleeding duodenal diverticulum. - The examination was otherwise normal. Recommendation: - Return patient to [facility] for ongoing care. - Clear liquid diet today. - Continue present medications. - Perform a colonoscopy tomorrow. Procedure Code(s): - 66802, Esophagogastroduodenoscopy, flexible, transoral; with biopsy, single or multiple Diagnosis Code(s): - K92.2, Gastrointestinal hemorrhage, unspecified - K22.89, Other specified disease of esophagus - K44.9, Diaphragmatic hernia without obstruction or gangrene - K31.89, Other diseases of stomach and duodenum - K57.10, Diverticulosis of small intestine without perforation or abscess without bleeding CPT(R) - 202 copyright [employer] [place] [employer]. All Rights Reserved. The CPT codes, CCI edits and ICD codes generated are intended as suggestions and were generated based on input data. These codes are preliminary and upon fiber optic assembler review may be revised to meet current compliance and payer requirements. The provider is responsible for the final determination of appropriate codes, and modifiers. Shannon Sarkar, This document has been electronically signed. Note Initiated:07/03/2025 Note Completed:07/03/2025 3:33 PM \\[id number]
--- NOTE | 2025-07-03 15:34 | Communication Note ---
Date of Service: July 03, [address] Sarkar after completing EGD. No explanation for melena on EGD. Discussed options of prepping and completing colonoscopy for 07/04/25. Patient agreeable. Continue with clear liquids. Golytely prep. NPO after midnight.
[2025-07-03] MEDS: LIDOCAINE 2% 2 ML VIAL/AMP(20MG/ML) INFIL ONE (15:50)
[2025-07-03] MEDS: PROPOFOL IV EMULSION 10 MG/ML 20 ML VIAL IV ONE ×2 (15:50→15:53)
--- NOTE | 2025-07-03 16:16 | Anesthesiology Progress Note ---
Date of Service July 03, 2025 Anesthesia Post Procedure Vital Signs Vital Signs: Temp Pulse Pulse Resp BP BP Pulse Ox 07/03/25 16:11 70 16 110/65 92 07/03/25 15:52 76 16 116/57 L 92 07/03/25 15:36 69 18 100/47 L 93 07/03/25 12:56 36.8 C 81 18 108/66 94 07/03/25 11:22 36.4 C L 60 14 123/68 96 07/03/25 03:51 118/52 L 07/03/25 03:13 37.0 C 69 18 102/46 L 94 07/02/25 23:08 37.3 C 66 18 93/55 L 95 07/02/25 22:25 81 07/02/25 19:32 37.3 C 75 18 135/74 94 O2 Del Method 07/03/25 16:11 Room Air 07/03/25 15:52 Room Air 07/03/25 15:36 Room Air 07/03/25 12:56 Room Air 07/03/25 11:22 Room Air 07/03/25 03:51 07/03/25 03:13 Room Air 07/02/25 23:08 Room Air 07/02/25 22:25 07/02/25 19:32 Room Air Pain Intensity Lower Pelvic: Pain Intensity: 5 Transfer of Care Handoff Completed per policy Notes Mental Status: alert / awake / arousable and participated in evaluation Patient Amnestic to Procedure: Yes Nausea / Vomiting: adequately controlled Pain: adequately controlled Airway Patency, RR, SpO2: stable & adequate BP & HR: stable & adequate Hydration State: stable & adequate Anesthetic Complications: no major complications apparent and Pt Satisfied with anesthetic care
[2025-07-03] MEDS: LAVAGE SOLUTION 4000ML PO SCH (18:05)
--- NOTE | 2025-07-03 18:59 | Hospitalist Progress Note ---
Date of Service July 03, 2025 Assessment & Plan (1) UGIB (upper gastrointestinal bleed): (2) Elevated troponin: (3) Syncope: (4) Urinary retention: Plan Patient is an 80-year-old male with a past medical history of CKD stage III, A- fib on Xarelto, COPD, type II DM, obstructive CAD, chronic HFpEF, portal gastropathy, leukemia s/p bone marrow transplant, B12 deficiency anemia who presents with 10 days of black tarry stools and a syncopal event 07/01. He was found to have a hemoglobin of 11.3, HCT 32.6, BUN 50, and troponin elevated to 276.1. He is admitted for a GI bleed with acute blood loss anemia and for further cardiac workup. #UGIB/acute blood loss anemia- hx of in 2022 possibly 2/2 portal hypertensive gastropathy. Likely upper GI bleed given melena. Hemodynamically stable at time of admission. Hgb 11.3 (unclear as to patient's baseline when not actively bleeding), BUN 50. Hemoglobin dropped to 8.8 since admission and stabilized, only 1 melanotic stool since admission, remains hemodynamically stable. Appreciate GI consultation. EGD without source of bleeding. -Continue pantoprazole 40mg IV BID -Clear liquids diet today and prep for colonoscopy on 07/04 Continue to hold Xarelto, last dose 07/01 PM prior to arrival to ED -Follow CBC in the morning #Elevated troponin/myocardial demand ischemia/mild-moderate aortic stenosis- trop 276.1/258.6/263/258 on serial repeats. Patient denies any CP, however did have episode of syncope 07/01. Likely 2/2 demand with above (elevated in 100s with prior GIB). His ECG is without acute ischemic changes. He can easily achieve 4 METS without angina. He has a mildly elevated troponin which has remained stable and is not indicative of acute coronary syndrome. He has no chest pain or angina and his echocardiogram is with preserved EF and without wall motion abnormalities. Suspect elevated troponin secondary to orthostasis from dehydration causing syncope and in the setting of moderate aortic stenosis could cause a troponin leak/myocardial demand ischemia. He is medically optimized for anesthesia for endoscopies - Continue to monitor on tele #Syncopepatient endorses feeling symptomatic with dizziness prior to episode, denies any chest pain. Likely secondary to poor p.o. intake with dehydration and acute blood loss anemia with upper GI bleed above. Head CT negative for acute changes, left knee XR showed small right joint effusion and he has no knee pain. He received IV fluids and is hemodynamically stable. Echocardiogram with preserved EF, mild-moderate aortic stenosis which would not cause syncope Continue holding home Lasix Continue to treat GI bleed Monitor on telemetry for arrhythmia-thus far rate controlled atrial fibrillation #UTI/urinary retention/urethral stricture- reported outpatient UTI on nitrofurantoin, with numerous side effects (discontinued 07/01 AM). UA here is normal. He had retention of urine and had to have urology consulted to place Su catheter after dilating a urethral stricture after admission. - No need for further antibiotics - Keep Su in place and plan for trial of void in the office with urology after discharge in 1-2 weeks #A-fibrates controlled - Continue home diltiazem but continue to hold Xarelto for GI bleed # Chronic HFpEFEF remains preserved on echo - Continue holding Lasix #CKD stage III-creatinine at baseline at 1.6-1.7 - Avoid nephrotoxins and renally dose medications - Follow BMP #COPDno acute issues - Continue home inhalers #B12 deficiency anemia-B12 level here is borderline low at 225 and he has not been taking supplementation at home - Gave B12 1000 mcg IM x 1 and start p.o. 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 Follow in outpatient setting #SMA stenosisquestionable SMA stenosis noted on AP CT. He has no symptoms of abdominal pain ever Follow-up in outpatient setting VTE ppx: SCDs, holding Xarelto with GI bleed Dispo: Continued stay on PCU Admission and Anticipated Discharge Date Admission Date: July 01, 2025 Subjective Patient had EGD today which did not reveal source of bleeding. He is going to prep for colonoscopy tonight. Denies abdominal pain. No melena today. No other concerns Telemetry with atrial fibrillation and PVCs with a 3 beat and 5 beat run of VT, otherwise isolated PVCs, rates in the 70s Physical Exam Constitutional: WD/WN, vitals as above Neck: trachea midline, no thyromegaly Respiratory: normal respiratory effort, lungs clear to auscultation Cardiovascular: Rate/Rhythm: regular rate and + irregularly irregular Heart Sounds: no murmur Extremities: no edema Chest (Breasts): Chest: normal inspection of chest Gastrointestinal (Abdomen): normal bowel sounds, soft, nontender, no hepatosplenomegaly Musculoskeletal: Extremities: extremities normal to inspection; no cyanosis and no clubbing Skin: no rashes, warm and dry Neurologic: moves all extremities and awake; no focal motor deficits Psychiatric: A+Ox3, euthymic affect Lymphatic: no lymphedema Results & Data Results & Data Vital Signs (Past 12 Hours) Vital Signs Temp Pulse Resp BP Pulse Ox O2 Del Method 07/03/25 16:11 70 16 110/65 92 Room Air 07/03/25 15:52 76 16 116/57 L 92 Room Air 07/03/25 15:36 69 18 100/47 L 93 Room Air 07/03/25 12:56 36.8 C 81 18 108/66 94 Room Air 07/03/25 11:22 36.4 C L 60 14 123/68 96 Room Air Laboratory Results CBC, BMP, magnesium reviewed PG Care Time/CCT Total # of Minutes Spent Total Time Spent with Patient: Total time spent is greater than 50% in coordination of care (as documented) at patient's floor/unit and/or counseling patient: Coding Level of Care Code 96499 SUB INP/OBS CARE 2/35MIN Diagnoses UGIB (upper gastrointestinal bleed) K92.2 Elevated troponin R79.89 Syncope R55 Syncope type: unspecified Urinary retention R33.9 (3) Syncope Syncope type: unspecified Qualified Code(s): R55 - Syncope and collapse
[2025-07-04 06:12] LABS: Hematocrit (blood only) 25.0 % (42.0-52.0); Hemoglobin 8.5 g/dl (14.0-18.0); Immature Granulocytes # (auto) 0.05 K/uL (0.01-0.20); Immature Granulocytes % (auto) 0.7 %; Mean Corpuscular Hemoglobin 34.3 pg (25.0-34.0); Mean Corpuscular Volume 100.8 fL (80.0-100.0); Platelet Count 236 K/uL (130-400); RDW Standard Deviation 61.1 fL (36.4-46.3); Red Blood Count 2.48 M/uL (4.70-6.10); White Blood Count 7.07 K/ul (4.8-10.8)
[2025-07-04 07:01] LABS: Anion Gap 9.0 (3-11); Blood Urea Nitrogen 26.0 mg/dl (6-23); Calcium 8.2 mg/dl (8.6-10.3); Carbon Dioxide 23.0 mmol/L (21-32); Chloride 105.0 mmol/L (98-107); Creatinine Clr Calc Pharmacy 44.8 ml/min; Glucose 189.0 mg/dl (70-99(Fasting)); Magnesium 1.7 mg/dl (1.7-2.4); Potassium 3.3 mmol/L (3.5-5.1); Sodium 137.0 mmol/L (136-145)
--- NOTE | 2025-07-04 08:52 | Anesthesiology Consultation ---
Date of Service July 04, 2025 Assessment & Plan Chart Review Chart Review: Acceptable Risk for Surgery, Patient NOT seen in Pre Admission Testing and data entry coordinator initiated Consults Requested none History Surgery Operation Date: 07/03/25 16:30 Proposed Procedures p Esophagogastroduodenoscopy Dr. Antonina Sarkar DO Operation Date: 07/04/25 16:45 Proposed Procedures p Colonoscopy Dr. Antonina Sarkar, Height/Weight Height: 5 ft 11 in Weight: 98.6 kg Allergies Allergy/AdvReac Type Severity Reaction Status Date / Time nitrofurantoin Allergy Severe SHORT OF Verified 07/03/25 13:49 [From Macrobid] BREATH, DIZZY, LIGHTHEADED, NAUSEA/VOMITING Medications Home Medications Medication Instructions Recorded Confirmed Last Taken fluticasone fur. 200 mcg-umeclid 1 inh inhalation QAM 07/01/23 07/01/25 07/01/25 62.5 mcg-vilant 25 mcg inhalat.powder (Trelegy Ellipta) ipratropium 0.5 mg-albuterol 3 mg 3 ml inhalation Q6H PRN Shortness 07/01/23 07/01/25 08/24/23 (2.5 mg base)/3 mL nebulization Of Breath soln magnesium oxide 400 mg (241.3 mg 400 mg PO BID 07/01/23 07/01/25 07/01/25 magnesium) tablet ranolazine 500 mg tablet,extended 500 mg PO BID 07/01/23 07/01/25 07/01/25 release,12 hr rivaroxaban 15 mg tablet (Xarelto) 15 mg PO HS 07/01/23 07/01/25 07/01/25 rosuvastatin 5 mg tablet 5 mg PO QAM 07/01/23 07/01/25 07/01/25 diltiazem HCl 240 mg 240 mg PO QAM 08/17/23 07/01/25 07/01/25 capsule,extended release 24 hr furosemide 20 mg tablet 20 - 40 mg PO UD 08/17/23 07/01/25 07/01/25 40 MG fluticasone propionate 50 1 spray intranasal DAILY PRN 07/01/25 07/01/25 Unknown mcg/actuation nasal Congestion spray,suspension gabapentin 300 mg capsule 300 mg PO HS 07/01/25 07/01/2507/01/25 loratadine 10 mg tablet (Claritin) 10 mg PO DAILY PRN Congestion 07/01/25 07/01/25 Unknown neomycin-bacitracn Zn-polymyxin 1 applic topical BID PRN APPLY TO 07/01/25 07/01/25 Unknown 3.5 mg-500 unit-10,000 unit top EAR NEEDED oint semaglutide 1 mg/dose (4 mg/3 mL) 1 mg subcut WK 07/01/25 07/01/25 06/30/25 subcutaneous pen injector (Ozempic) tamsulosin 0.4 mg capsule 0.4 mg PO DAILY 07/01/25 07/01/25 07/01/25 Active Medications Generic Name Dose Route Start Last Admin Trade Name Freq PRN Reason Stop Dose Admin Diltiazem HCl 240 mg 07/02/25 09:00 07/04/25 08:47 Diltiazem Hcl 240 Mg Capcr PO 08/01/25 08:59 240 mg QAM TAYLOR Administration Fluticasone Furoate 1 puffs 07/02/25 09:00 07/04/25 08:46 Fluticasone Furoate 200mcg 14 Puffs/Inhaler INH 08/01/25 08:59 1 puffs DAILY TAYLOR Administration Gabapentin 300 mg 07/02/25 21:00 07/03/25 20:03 Gabapentin 300 Mg Cap PO 08/01/25 20:59 300 mg HS TAYLOR Administration Pantoprazole Sodium 40 mg in 10 mls @ 5 mls/min 07/02/25 09:00 07/04/25 08:46 Protonix IV 08/01/25 08:59 5 mls/min BID TAYLOR Administration Melatonin 3 mg 07/02/25 00:07 07/02/25 20:16 Melatonin 3 Mg Tab PO 08/01/25 00:06 3 mg HS PRN Administration Sleep Ranolazine 500 mg 07/02/25 21:00 07/04/25 08:47 Ranolazine 500 Mg Er Tab PO 08/01/25 20:59 500 mg BID TAYLOR Administration Rosuvastatin Calcium 5 mg 07/02/25 09:00 07/04/25 08:46 Rosuvastatin Calcium 5 Mg Tab PO 08/01/25 08:59 5 mg QAM TAYLOR Administration Tamsulosin HCl 0.4 mg 07/02/25 21:00 07/03/25 20:03 Tamsulosin Hcl 0.4 Mg Cap PO 08/01/25 20:59 0.4 mg HS TAYLOR Administration Umeclidinium/Vilanterol 1 puffs 07/02/25 09:00 07/04/25 08:46 Umeclidinium/Vilanterol 62.5/25mcg 7 Puffs/Inhaler INH 08/01/25 08:59 1 puffs DAILY TAYLOR Administration NPO Date Last Intake of Fluids: 07/03/25 Time Last Intake of Fluids: 07:30 Date Last Intake of Solids: 06/29/25 Time Last Intake of Solids: 00:00 Past Medical History Medical History Neuropathy Hx of fracture of nose multiple times in the past (years ago) Sleep apnea cpap Chronic obstructive pulmonary disease GI bleed 06/2023, recently hospitalized at [facility] for 5 days; found to have diverticulitis Non-ST elevation [place] (NSTEMI) pt denies Past Surgical History Surgical History History of total right knee replacement History of total left knee replacement Hx of umbilical hernia repair done w/cholecystectomy Hx of cholecystectomy Hx of colonoscopy History of cardiac cath ~10-12 [facility], [facility] f/u fredrick jiménez 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 [facility] [place] of esophagogastroduodenoscopy (EGD) Social History Smoking Status: Former smoker Do You Dip or Chew Tobacco: No Smoking End Date: 40 years ago Hx Alcohol Use: No Hx Substance Use: No substance use type: does not use Physical Exam Vital Signs Last Vital Signs Temp 36.5 C 07/04/25 07:25 Pulse 87 07/04/25 07:25 Resp 20 07/04/25 07:25 BP 125/68 07/04/25 07:25 Pulse Ox 96 07/04/25 07:25 O2 Del Method Room Air 07/04/25 07:25 Testing Laboratory Results 07/04/25 05:27 07/04/25 05:27 PT 15.6 Seconds (9.0-12.0) H 07/01/25 18:14 INR 1.5 (0.9-1.1) H 07/01/25 18:14 APTT 43 Seconds (21-31) H 07/01/25 18:14 Urine Color Yellow 07/02/25 07:10 Urine Appearance Clear (Clear) 07/02/25 07:10 Urine pH 5.5 (4.5-7.5) 07/02/25 07:10 Ur Specific [place] 1.043 (1.000-1.030) H 07/02/25 07:10 Urine Protein 1+ (Negative) H 07/02/25 07:10 Urine Glucose (UA) Negative (Negative) 07/02/25 07:10 Urine Ketones Trace (Negative) H 07/02/25 07:10 Urine Nitrite Negative (Negative) 07/02/25 07:10 Ur Leukocyte Esterase Trace (Negative) H 07/02/25 07:10 Urine WBC (Auto) 0-5 /hpf (0-5) 07/02/25 07:10 Urine RBC (Auto) 0-2 /hpf (0-2) 07/02/25 07:10 U Hyaline Cast (Auto) 0-2 /lpf (0-2) 07/02/25 07:10 U Epithel Cells (Auto) 6-10 /hpf (0-2) H 07/02/25 07:10 Urine Bacteria (Auto) None Seen (None Seen) 07/02/25 07:10 Blood Type O Positive 07/01/25 20:30 Antibody Screen NEGATIVE 07/01/25 20:30 Electrocardiogram Date: 07/02/25 Findings: + AFIB @ (with RVR 110) and + RBBB Echocardiogram Date: 07/02/25 EF: 60-65 LV Function: normal Valvular Disease: + (mild-mod)
[2025-07-04] MEDS: POTASSIUM CHLORIDE / WTR 10 MEQ/100 ML PLCT IV SCH (09:03)
[2025-07-04] MEDS: MAGNESIUM SULFATE / D5W 1 GM/100 ML BAG IV ONE (09:03)
--- NOTE | 2025-07-04 09:56 | History & Physical Bridge Note ---
Date of Service July 04, 2025 History & Physical Bridge Note I have examined the patient, reviewed the History & Physical and in the interval since the performance of the History & Physical I have noted the following changes of clinical significance: no changes noted Spoke with patient this morning. He completed entire prep without issues, passing clear stools. He's NPO. Complete Colonoscopy as planned.
--- NOTE | 2025-07-04 11:40 | Hospitalist Progress Note ---
Date of Service July 04, 2025 Assessment & Plan (1) UGIB (upper gastrointestinal bleed): (2) Elevated troponin: (3) Syncope: (4) Urinary retention: Plan Patient is an 80-year-old male with a past medical history of CKD stage III, A- fib on Xarelto, COPD, type II DM, obstructive CAD, chronic HFpEF, portal gastropathy, leukemia s/p bone marrow transplant, B12 deficiency anemia who presents with 10 days of black tarry stools and a syncopal event 07/01. He was found to have a hemoglobin of 11.3, HCT 32.6, BUN 50, and troponin elevated to 276.1 on arrival. He is admitted for a GI bleed with acute blood loss anemia and for further cardiac workup. #UGIB/acute blood loss anemia- hx of in 2022 possibly 2/2 portal hypertensive gastropathy. Initially thought to be due to upper GI bleed given melena, however EGD was normal on 07/03. Remains hemodynamically stable although hemoglobin has dropped to 8.5 since admission. His Hgb is stabilized for the last 3 days so no further bleeding likely. Bowel prep with melena initially and then turned clear. Appreciate GI consultation. -Continue pantoprazole 40mg IV BID but likely not necessary as no upper GI bleed identified on EGD - Await colonoscopy on 07/04 Continue to hold Xarelto, last dose 07/01 PM prior to arrival to ED -Follow CBC in the morning #Elevated troponin/myocardial demand ischemia/mild-moderate aortic stenosis- trop 276.1/258.6/263/258 on serial repeats. Patient denies any CP, however did have episode of syncope 07/01. Likely 2/2 demand with above (elevated in 100s with prior GIB). His ECG is without acute ischemic changes. He can easily achieve 4 METS without angina. He has a mildly elevated troponin which has remained stable and is not indicative of acute coronary syndrome. He has no chest pain or angina and his echocardiogram is with preserved EF and without wall motion abnormalities. Suspect elevated troponin secondary to orthostasis from dehydration causing syncope and in the setting of moderate aortic stenosis could cause a troponin leak/myocardial demand ischemia. He is medically optimized for anesthesia for endoscopies - Continue to monitor on tele #Syncopepatient endorses feeling symptomatic with dizziness prior to episode, denies any chest pain. Likely secondary to poor p.o. intake with dehydration and acute blood loss anemia with upper GI bleed above. Head CT negative for acute changes, left knee XR showed small right joint effusion and he has no knee pain. He received IV fluids and is hemodynamically stable. Echocardiogram with preserved EF, mild-moderate aortic stenosis which would not cause syncope Continue holding home Lasix but not giving any IV fluids Continue to treat GI bleed Monitor on telemetry for arrhythmia-thus far rate controlled atrial fibrillation and a few short runs of VT nonsustained - Check orthostatics prior to discharge #UTI/urinary retention/urethral stricture- reported outpatient UTI on nitrofurantoin, with numerous side effects (discontinued 07/01 AM). UA here is normal. He had retention of urine and had to have urology consulted to place Su catheter after dilating a urethral stricture after admission. He has a history of adult circumcision in the last year. Likely stricture due to scarring from surgery. - No need for further antibiotics - Keep Su in place and plan for trial of void in the office with urology after discharge in 1-2 weeks # Permanent A-fibrates controlled - Continue home diltiazem but continue to hold Xarelto for GI bleed # Chronic HFpEFEF remains preserved on echo - Continue holding Lasix - For hypokalemia-give KCl 20 mEq IV x 1 and optimize magnesium with 1 g of IV magnesium #CKD stage III-creatinine at baseline at 1.5-1.7 - Avoid nephrotoxins and renally dose medications - Follow BMP in the a.m. #COPDno acute issues - Continue home inhalers #B12 deficiency anemia-B12 level here is borderline low at 225 and he has not been taking supplementation at home - Gave B12 1000 mcg IM x 1 and start p.o. 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 Follow in outpatient setting #SMA stenosisquestionable SMA stenosis noted on AP CT. He has no symptoms of abdominal pain ever Follow-up in outpatient setting VTE ppx: SCDs, holding Xarelto with GI bleed Dispo: Continued stay on PCU, but likely discharge on 07/05 if remains stable. Also depends on findings on colonoscopy. PT/OT consults placed Admission and Anticipated Discharge Date Admission Date: July 01, 2025 Subjective Patient drank all of his bowel prep through the night and is now passing clear liquid in his stool. He did have dark stools initially. Denies abdominal pain, no lightheadedness or chest pain, no shortness of breath, no nausea. I discussed his care with his son at the bedside. Atrial fibrillation on telemetry and PVCs with rates in the 70s to 80s, and a 10 beat run of V. tach Physical Exam Constitutional: WD/WN, vitals as above Neck: trachea midline, no thyromegaly Respiratory: normal respiratory effort, lungs clear to auscultation Cardiovascular: Rate/Rhythm: regular rate and + irregularly irregular Heart Sounds: no murmur Extremities: no edema Chest (Breasts): Chest: normal inspection of chest Gastrointestinal (Abdomen): normal bowel sounds, soft, nontender, no hepatosplenomegaly Musculoskeletal: Extremities: extremities normal to inspection; no cyanosis and no clubbing Skin: no rashes, warm and dry Neurologic: moves all extremities and awake; no focal motor deficits Psychiatric: A+Ox3, euthymic affect Lymphatic: no lymphedema Results & Data Results & Data Vital Signs (Past 12 Hours) Vital Signs Temp Pulse Pulse Resp BP Pulse Ox O2 Del Method 07/04/25 07:25 36.5 C 87 20 125/68 96 Room Air 07/04/25 07:00 75 07/04/25 04:05 36.4 C L 77 18 118/71 95 Room Air Laboratory Results CBC, BMP, magnesium level reviewed PG Care Time/CCT Total # of Minutes Spent Total Time Spent with Patient: Total time spent is greater than 50% in coordination of care (as documented) at patient's floor/unit and/or counseling patient: Coding Level of Care Code 60749 SUB INP/OBS CARE 3/50MIN Diagnoses UGIB (upper gastrointestinal bleed) K92.2 Elevated troponin R79.89 Syncope R55 Syncope type: unspecified Urinary retention R33.9 (3) Syncope Syncope type: unspecified Qualified Code(s): R55 - Syncope and collapse
--- NOTE | 2025-07-04 14:41 | GI REPORT ---
[facility] Patient: ZACK BLAS : 1945 Sex at : Male Age: 80 Years Procedure: Colonoscopy Date: 07/04/2025 Attending Physician: DO Mónica Soto MD: Olinda Cordero Md Indications: - Melena, EGD negative for a source. Medications: - Monitored Anesthesia Care Complications: - No immediate complications. Estimated Blood Loss: - Estimated blood loss was minimal. Procedure: - ASA Grade Assessment: II - A patient with mild systemic disease. - The adult colonoscope was introduced through the anus and advanced to the terminal ileum, with identification of the appendiceal orifice and ileocecal valve. - The colonoscopy was somewhat difficult due to significant looping. Successful completion of the procedure was aided by using manual pressure. - The patient tolerated the procedure well. - The quality of the bowel preparation was evaluated using the BBPS ([place] Bowel Preparation Scale) with scores of: Right Colon = 2 (minor amount of residual staining, small fragments of stool and/or opaque liquid, but mucosa seen well), Transverse Colon = 2 (minor amount of residual staining, small fragments of stool and/or opaque liquid, but mucosa seen well) and Left Colon = 2 (minor amount of residual staining, small fragments of stool and/or opaque liquid, but mucosa seen well). The total BBPS score equals 6. - Anatomical landmarks were photographed. Findings: - The perianal examination was normal. - Internal hemorrhoids were found during retroflexion. The hemorrhoids were large. - Multiple large-mouthed diverticula were found in the entire colon. - A few small localized angioectasias with bleeding on contact were found in the ascending colon. Coagulation for hemostasis using argon plasma was successful. - A small (4-6 mm) polyp was found in the cecum. The polyp was sessile. The polyp was removed with a cold snare. Resection and retrieval were complete. - Two sessile polyps were found in the ascending colon. The polyps were small (4-6 mm) in size. These polyps were removed with a cold snare. Resection and retrieval were complete. - Two sessile polyps were found in the ascending colon. The polyps were 10 to 12 mm in size. These polyps were removed with a hot snare. Resection and retrieval were complete. To prevent bleeding after the polypectomy, two hemostatic clips were successfully placed. There was no bleeding at the end of the procedure. - Three sessile polyps were found in the descending colon. The polyps were small (4-6 mm) in size. These polyps were removed with a cold snare. Resection and retrieval were complete. - Many sessile polyps were found in the sigmoid colon. The polyps were diminutive in size. Polypectomy was not attempted due to the patient taking anticoagulation medication. - A diffuse area of moderate melanosis was found in the entire colon. Impression: - Internal hemorrhoids. - Diverticulosis in the entire examined colon. - A few colonic angioectasias. Treated with argon plasma coagulation (APC). - One small (4-6 mm) polyp in the cecum, removed with a cold snare. Resected and retrieved. - Two small (4-6 mm) polyps in the ascending colon, removed with a cold snare. Resected and retrieved. - Two 10 to 12 mm polyps in the ascending colon, removed with a hot snare. Resected and retrieved. Clips were placed. - Three small (4-6 mm) polyps in the descending colon, removed with a cold snare. Resected and retrieved. - Many polyps in the sigmoid colon. Resection not attempted. - Melanosis in the colon. Recommendation: - [facility]. - Resume regular diet. - Await pathology results. - Repeat colonoscopy PRN. - Resume Xarelto (rivaroxaban) at prior dose in 3 days. If pt continues to bleed will proceed with a SBCE to eval for small bowel AVMs. - The findings and recommendations were discussed with the patient. Procedure Code(s): - 28246-14, Colonoscopy, flexible; with control of bleeding, any method - 27939, Colonoscopy, flexible; with removal of tumor(s), polyp(s), or other lesion(s) by snare technique Diagnosis Code(s): - K92.1, Melena (includes Hematochezia) - K55.20, Angiodysplasia of colon without hemorrhage - D12.0, Benign neoplasm of cecum - D12.2, Benign neoplasm of ascending colon - D12.4, Benign neoplasm of descending colon - D12.5, Benign neoplasm of sigmoid colon - K63.89, Other specified diseases of intestine - K64.8, Other hemorrhoids - K57.30, Diverticulosis of large intestine without perforation or abscess without bleeding CPT(R) - 2023 copyright [employer]. All Rights Reserved. The CPT codes, CCI edits and ICD codes generated are intended as suggestions and were generated based on input data. These codes are preliminary and upon lpn care manager review may be revised to meet current compliance and payer requirements. The provider is responsible for the final determination of appropriate codes, and modifiers. Shannon Sarkar DO This document has been electronically signed. Note Initiated:07/04/2025 Note Completed:07/04/2025 2:40 PM Shannon Sarkar DO This document has been electronically signed. Note Amended:07/04/2025 2:49 PM [id number]
--- NOTE | 2025-07-04 14:46 | Anesthesiology Progress Note ---
Date of Service July 04, 2025 Anesthesia Post Procedure Vital Signs Vital Signs: Temp Pulse Pulse Resp BP BP Pulse Ox 07/04/25 14:36 70 16 96/42 L 98 07/04/25 12:37 37.4 C 86 16 121/63 93 07/04/25 07:25 36.5 C 87 20 125/68 96 07/04/25 07:00 75 07/04/25 04:05 36.4 C L 77 18 118/71 95 07/03/25 22:36 36.6 C 74 18 132/70 93 07/03/25 21:55 76 07/03/25 19:28 36.8 C 70 18 139/75 93 07/03/25 16:11 70 16 110/65 92 07/03/25 15:52 76 16 116/57 L 92 07/03/25 15:36 69 18 100/47 L 93 O2 Del Method 07/04/25 14:36 Room Air 07/04/25 12:37 Room Air 07/04/25 07:25 Room Air 07/04/25 07:00 07/04/25 04:05 Room Air 07/03/25 22:36 Room Air 07/03/25 21:55 07/03/25 19:28 Room Air 07/03/25 16:11 Room Air 07/03/25 15:52 Room Air 07/03/25 15:36 Room Air Pain Intensity Lower Pelvic: Pain Intensity: 0 Transfer of Care Handoff Completed per policy Notes Mental Status: alert / awake / arousable and participated in evaluation Patient Amnestic to Procedure: Yes Nausea / Vomiting: adequately controlled Pain: adequately controlled Airway Patency, RR, SpO2: stable & adequate BP & HR: stable & adequate Hydration State: stable & adequate Anesthetic Complications: no major complications apparent and Pt Satisfied with anesthetic care
[2025-07-04] MEDS: LIDOCAINE 2% 2 ML VIAL/AMP(20MG/ML) INFIL ONE ×2 (15:53)
[2025-07-04] MEDS: PROPOFOL IV EMULSION 10 MG/ML 20 ML VIAL IV ONE ×2 (15:53)
[2025-07-05 06:00] LABS: Hematocrit (blood only) 23.5 % (42.0-52.0); Hemoglobin 8.3 g/dl (14.0-18.0); Immature Granulocytes # (auto) 0.07 K/uL (0.01-0.20); Immature Granulocytes % (auto) 0.9 %; Mean Corpuscular Hemoglobin 35.6 pg (25.0-34.0); Mean Corpuscular Volume 100.9 fL (80.0-100.0); Platelet Count 228 K/uL (130-400); RDW Standard Deviation 60.7 fL (36.4-46.3); Red Blood Count 2.33 M/uL (4.70-6.10); White Blood Count 8.23 K/ul (4.8-10.8)
[2025-07-05 06:20] LABS: Anion Gap 7.0 (3-11); Blood Urea Nitrogen 21.0 mg/dl (6-23); Calcium 7.9 mg/dl (8.6-10.3); Carbon Dioxide 23.0 mmol/L (21-32); Chloride 108.0 mmol/L (98-107); Creatinine Clr Calc Pharmacy 43.1 ml/min; Glucose 165.0 mg/dl (70-99(Fasting)); Magnesium 1.8 mg/dl (1.7-2.4); Potassium 3.2 mmol/L (3.5-5.1); Sodium 138.0 mmol/L (136-145)
[2025-07-05] MEDS: POTASSIUM CHLORIDE CRTAB 20 MEQ TABCR PO STA (08:54)
[2025-07-05] MEDS: MAGNESIUM SULFATE / D5W 1 GM/100 ML BAG IV ONE (08:54)
[2025-07-05] MEDS: IRON SUCROSE 300 MG in SODIUM CHLORIDE 0.9% 250 ML IV ONE (08:54)
[2025-07-05] MEDS: CYANOCOBALAMIN (B-12) 500 MCG TABLET PO SCH (08:55)
[2025-07-05 10:35] VITALS: BP 106/53; PULSE 66; RESP 18; TEMP 98.8
--- NOTE | 2025-07-05 11:24 | Gastroenterology Progress Note ---
Date of Service July 05, 2025 Assessment & Plan (1) GI bleed: Plan 80yowm with h/o COPD, CKD 3, CAD, T2DM, GERD Afib on Xarelto, AML s/p Stem Cell transplant 2012 is seen today on GI rounds for UGIB. Patient presented due to 10 days of black tarry stools and a syncopal event 07/01 with fall. He was found to have a hemoglobin of 11.3, HCT 32.6, BUN 50, and troponin elevated to 276.1. He is being admitted for a GI bleed and for further cardiac workup. Today troponins are 258.3. Hgb 9.2. BUN 44, Cr 1.63. He had 1 soft black bowel movement this morning. VSS. No abdominal pain, SOB or CP on today's assessment. (1) GI bleed and Anemia - Completed EGD and Colonoscopy with findings of duodenitis, polyps and AVMs s/p APC. - No overt bleeding since hospitalization. Hgb trend 9.3g/dl 07/02/25 to 8.3g/dl today. - Recommended holding Xarelto x 3 days d/t multiple polyps. - Reviewed s/s of GI bleeding recurrence. - Recommend follow up with PCP for close surveillance of recurrent GI bleeding/CBC. Understanding voiced. I offered in office follow up with us but he declined as he lives out in [place]. - If hemoglobin continues to decline recommend further evaluation of contributing factors (ie, nutritional deficiency, other causes of anemia) and video capsule endoscopy through [facility] or [facility]. We can assist in arranging follow up for VCE. - Reviewed ER precautions for signs of overt bleeding. Understanding and satisfaction voiced. - Thank you for allowing us to participate in the care of this patient. Please call with any acute changes, questions or concerns. Please see addendum below with additional recommendation from my supervising physician. Admission and Anticipated Discharge Date Admission Date: July 01, 2025 Subjective 80yowm with h/o COPD, CKD 3, CAD, T2DM, GERD Afib on Xarelto, AML s/p Stem Cell transplant 2012 is seen today on GI rounds for UGIB. Patient presented due to 10 days of black tarry stools and a syncopal event 07/01 with fall. He was found to have a hemoglobin of 11.3, HCT 32.6, BUN 50, and troponin elevated to 276.1. He is being admitted for a GI bleed and for further cardiac workup. He had his Xarelto held and he was admitted for GI work up. He underwent EGD 07/03 which revealed no obvious source of bleeding. Colonoscopy 07/04 revealed multiple polyps and a few AVMs which were treated with APC. He was recommended to hold Xarelto x 3 days. Recommend ongoing monitoring of CBC with follow up small bowel capsule endoscopy if he notes any other signs of GI bleeding or worsening of anemia. Today he reports that he's had no evidence of black tarry stools or rectal bleeding. Hemoglobin has been relatively stable. Hgb 07/02 9.3 -> 07/03 8.8 -> 07/04 8.5 -> 07/05 8.3. He denies any fevers, chills, SOB, CP, abdominal pain, N/V/D, red blood in stools. Social history - Former tobacco and alcohol use. Quit 20+ years ago. No NSAID or steroid use. Surgical History - EGD, Colonoscopy 2022. Knee replacement. Hernia repair. Cardiac Catheterization - no stents placed - Follows with Dr. Korin Palmer. Stem Cell transplant 2011. Family history - No celiac, IBD or GI cancers. Pertinent Diagnostics: ER CBC - Hgb 11.3g/dl, Hct 32.6, Plt 220, WBC 9.19. ER BMP - Glucose 144, BUN 50, Cr 1.64, Cl 103, CO2 23, Na 136, K 3.8. ER Troponin 276.1 => 258.6 Troponin 07/02/25 - 278.3 Renal 07/02/25 - BUN 46, Cr 1.63 CBC 07/02/25 - Hgb 9.2, Hct 25.8, Plt 197, WBC 6.25 CT abd/pelvis 07/01/25 IMPRESSION: 1. Extensive diverticulosis of the descending and sigmoid colon. Follow-up colonoscopy recommended for more specific evaluation of the hematochezia. 2. Extensive atherosclerotic atherosclerotic calcification with small infrarenal aneurysm with a maximum diameter of 2.8 cm at this time. 3. 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 This would be better evaluated with CTA and/or MRA exam. 4. Otherwise negative for acute abnormalities at this time. Electronically signed by Johnnie Padilla 07-01-2025 8:11 PM Colonoscopy 07/04/25 Dr. Sarkar Indication: GI bleeding Findings: - The perianal examination was normal. - Internal hemorrhoids were found during retroflexion. The hemorrhoids were large. - Multiple large-mouthed diverticula were found in the entire colon. - A few small localized angioectasias with bleeding on contact were found in the ascending colon. Coagulation for hemostasis using argon plasma was successful. - A small (4-6 mm) polyp was found in the cecum. The polyp was sessile. The polyp was removed with a cold snare. Resection and retrieval were complete. - Two sessile polyps were found in the ascending colon. The polyps were small (4-6 mm) in size. These polyps were removed with a cold snare. Resection and retrieval were complete. - Two sessile polyps were found in the ascending colon. The polyps were 10 to 12 mm in size. These polyps were removed with a hot snare. Resection and retrieval were complete. To prevent bleeding after the polypectomy, two hemostatic clips were successfully placed. There was no bleeding at the end of the procedure. - Three sessile polyps were found in the descending colon. The polyps were small (4-6 mm) in size. These polyps were removed with a cold snare. Resection and retrieval were complete. - Many sessile polyps were found in the sigmoid colon. The polyps were diminutive in size. Polypectomy was not attempted due to the patient taking anticoagulation medication. - A diffuse area of moderate melanosis was found in the entire colon. Impression: - Internal hemorrhoids. - Diverticulosis in the entire examined colon. - A few colonic angioectasias. Treated with argon plasma coagulation (APC). - One small (4-6 mm) polyp in the cecum, removed with a cold snare. Resected and retrieved. - Two small (4-6 mm) polyps in the ascending colon, removed with a cold snare. Resected and retrieved. - Two 10 to 12 mm polyps in the ascending colon, removed with a hot snare. Resected and retrieved. Clips were placed. - Three small (4-6 mm) polyps in the descending colon, removed with a cold snare. Resected and retrieved. - Many polyps in the sigmoid colon. Resection not attempted. - Melanosis in the colon. Recommendation: - [facility]. - Resume regular diet. - Await pathology results. - Repeat colonoscopy PRN. - Resume Xarelto (rivaroxaban) at prior dose in 3 days. If pt continues to bleed will proceed with a SBCE to eval for small bowel AVMs. - The findings and recommendations were discussed with the patient. EGD 07/03/25 Dr. Sarkar GI bleeding. Findings: - The Z-line was irregular and was found 40 cm from the incisors. - A small hiatal hernia was present. - The entire examined stomach was normal. Biopsies were taken with a cold forceps for Helicobacter pylori testing. - Patchy severely erythematous mucosa without active bleeding and with no stigmata of bleeding was found in the duodenal bulb. Biopsies for histology were taken with a cold forceps. - A medium non-bleeding diverticulum was found in the area of the papilla. - The exam was otherwise without abnormality. Impression: - Z-line irregular, 40 cm from the incisors. - Small hiatal hernia. - Normal stomach. Biopsied. - Erythematous duodenopathy. Biopsied. - Non-bleeding duodenal diverticulum. - The examination was otherwise normal. Recommendation: - Return patient to [facility]. - Clear liquid diet today. - Continue present medications. - Perform a colonoscopy tomorrow. Review of Systems Review of Systems: See HPI Physical Exam Physical Exam: Constitutional: NAD. Alert. Answering questions appropriately. Respiratory: Breathing is even, non-labored. Lungs maya are clear to auscultation anteriorly. Cardiovascular: Irregular irregular rhythm. Rate controlled. No murmurs, rubs or gallops appreciated. Gastrointestinal (Abdomen): Normoactive bowel sounds x4, soft, non-distended, non-tender. Musculoskeletal: Lying in bed comfortably. No peripheral edema. Results & Data Results & Data Vital Signs (Past 12 Hours) Vital Signs Temp Pulse Pulse Resp BP Pulse Ox O2 Del Method 07/05/25 10:34 98.8 F 66 18 106/53 L 93 Room Air 07/05/25 08:09 98.1 F 77 34 H 119/59 L 94 Room Air 07/05/25 07:21 99.1 F 66 17 106/54 L 94 Room Air 07/05/25 07:00 75 07/05/25 05:52 68 07/05/25 02:45 97.3 F L 74 18 109/50 L 93 Room Air PG Care Time/CCT Total # of Minutes Spent Total Time Spent with Patient: Total time spent is greater than 50% in coordination of care (as documented) at patient's floor/unit and/or counseling patient: Coding Level of Care Code 34749 SUB INP/OBS CARE 3/50MIN Diagnoses GI bleed K92.2 GI bleed type/associated pathology: unspecified gastrointestinal hemorrhage type (1) GI bleed GI bleed type/associated pathology: unspecified gastrointestinal hemorrhage type Qualified Code(s): K92.2 - Gastrointestinal hemorrhage, unspecified
[2025-07-05 11:51] VITALS: O2SAT 90
--- NOTE | 2025-07-05 13:03 | Discharge Summary ---
Discharge Summary Date of Service July 05, 2025 Principal Dx & Hospital Course #1 = Principal Diagnosis (1) UGIB (upper gastrointestinal bleed): (2) Elevated troponin: (3) Syncope: (4) Urinary retention: Plan Patient is an 80-year-old male with a past medical history of CKD stage III, A- fib on Xarelto, COPD, type II DM, obstructive CAD, chronic HFpEF, portal gastropathy, leukemia s/p bone marrow transplant, B12 deficiency anemia who presents with 10 days of black tarry stools and a syncopal event 07/01. He was found to have a hemoglobin of 11.3, HCT 32.6, BUN 50, and troponin elevated to 276.1 on arrival. He is admitted for a GI bleed with acute blood loss anemia and for further cardiac workup. #UGIB/acute blood loss anemia- hx of in 2022 possibly 2/2 portal hypertensive gastropathy. Initially thought to be due to upper GI bleed given melena, however EGD was normal on 07/03. Remains hemodynamically stable although hemoglobin has dropped to 8.5 since admission. His Hgb is stabilized for the last 4 days so no further bleeding likely. Bowel prep with melena initially and then turned clear. Appreciate GI consultation. Colonoscopy with friable angioectasias that bled on contact and ascending colon- treated with APC. Had numerous colon polyps biopsied/removed, and large internal hemorrhoids. He had diffuse moderate melanosis in entire colon incidentally as well. -No need for further Protonix as he had no evidence of upper GI bleeding - Okay to resume Xarelto on 07/07 as per GI-monitor for recurrent bleeding - Recommend checking CBC in 1 week with PCP-if hemoglobin not improving or trending downward, would stop Xarelto and refer for video capsule endoscopy with GI - We will arrange outpatient GI follow-up after discharge -Follow-up on pathology of colon polyps after discharge #Elevated troponin/myocardial demand ischemia/mild-moderate aortic stenosis- trop 276.1/258.6/263/258 on serial repeats. Patient denies any CP, however did have episode of syncope 07/01. Likely 2/2 demand with above (elevated in 100s with prior GIB). His ECG is without acute ischemic changes. He can easily achieve 4 METS without angina. He has a mildly elevated troponin which has remained stable and is not indicative of acute coronary syndrome. He has no chest pain or angina and his echocardiogram is with preserved EF and without wall motion abnormalities. Suspect elevated troponin secondary to orthostasis from dehydration causing syncope and in the setting of moderate aortic stenosis could cause a troponin leak/myocardial demand ischemia. He is medically optimized for anesthesia for endoscopies #Syncopepatient endorses feeling symptomatic with dizziness prior to episode, denies any chest pain. Likely secondary to poor p.o. intake with dehydration and acute blood loss anemia with upper GI bleed above. Head CT negative for acute changes, left knee XR showed small right joint effusion and he has no knee pain. He received IV fluids and is hemodynamically stable. Echocardiogram with preserved EF, mild-moderate aortic stenosis which would not cause syncope. Orthostatic vital signs negative on the day of discharge. Telemetry with rate controlled atrial fibrillation and only a few short runs of VT of 5-10 beats that were asymptomatic. Held Lasix during admission but can resume on discharge #UTI/urinary retention/urethral stricture- reported outpatient UTI on nitrofurantoin, with numerous side effects (discontinued 07/01 AM). UA here is normal. He had retention of urine and had to have urology consulted to place Su catheter after dilating a urethral stricture after admission. He has a history of adult circumcision in the last year. Likely stricture due to scarri ng from surgery. - No need for further antibiotics - Keep Su in place and plan for trial of void in the office with urology after discharge in 1-2 weeks-appointment will be arranged by urology nurse practitioner # Permanent A-fibrates controlled - Continue home diltiazem but continue to hold Xarelto for GI bleed until 07/07 # Chronic HFpEFEF remains preserved on echo - Can resume home Lasix on discharge. Potassium and magnesium were repleted as needed to optimize #CKD stage III-creatinine at baseline at 1.5-1.7 - Avoid nephrotoxins and renally dose medications - Follow as an outpatient #COPDno acute issues - Continue home inhalers #B12 deficiency anemia-B12 level here is borderline low at 225 and he has not been taking supplementation at home - Gave B12 1000 mcg IM x 1 and start p.o. 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 Follow in outpatient setting #SMA stenosisquestionable SMA stenosis noted on AP CT. He has no symptoms of abdominal pain ever Follow-up in outpatient setting VTE ppx: SCDs, holding Xarelto with GI bleed Dispo: Discharge to home, did well with PT/OT consults Notes For Next Care Provider Check CBC within 1 week Follow-up for trial of void with urology in 1-2 weeks Follow-up with GI-may need video capsule endoscopy in the future Admission HPI Per Admitting Provider Patient is an 80-year-old male with a past medical history of CKD, A-fib on Xarelto, COPD, type II DM, CAD, CHF. Patient presented due to 10 days of black tarry stools and a syncopal event 07/01. He was found to have a hemoglobin of 11.3, HCT 32.6, BUN 50, and troponin elevated to 276.1. He is being admitted for a GI bleed and for further cardiac workup. Patient seen at bedside with his son present. He stated he has had 10 days of dark black tarry stools, denies any bright red blood in stools. He stated he has been on an iron supplement however it has been for many years. He also stated that he had a syncopal event in his kitchen 07/01 resulting in a fall l anding on his left knee and striking the right side of his head. He stated he felt the episode coming and felt dizzy prior to, denies any chest pain. He endorses shortness of breath, dizziness, nausea, and poor appetite for about 5 days however thought that all of the symptoms were secondary to nitrofurantoin which she was prescribed for a UTI by his PCP. He stopped this medication today due to the symptoms. Patient denies any recent NSAID or alcohol use. He was admitted to [facility] in June 2023 for suspected upper GI bleed with dark tarry stools. He had an EGD during this admission which showed portal hypertensive gastropathy, no history of liver disease. He also had a CT scan which showed diverticulitis so colonoscopy was deferred for several weeks which then later showed melanosis, diverticulosis of sigmoid and descending colon, and multiple polyps were not removed at that time. He also was noted to have a low B12 level during this admission. Patient stated he has had no recurrence of symptoms since then. He stated he has not drink alcohol or smoked in 30 years. He took all of his evening medications today including his Xarelto at 5 PM. He takes Lasix 40 mg p.o. on odd days and Lasix 20 mg on even days. He wishes to be full code. Discharge Exam Constitutional WD/WN, vitals as above Neck trachea midline, no thyromegaly Respiratory normal respiratory effort, lungs clear to auscultation Cardiovascular Rate/Rhythm: regular rate and + irregularly irregular Heart Sounds: no murmur Extremities: no edema Chest (Breasts) Chest: normal inspection of chest Gastrointestinal (Abdomen) normal bowel sounds, soft, nontender, no hepatosplenomegaly Musculoskeletal Extremities: extremities normal to inspection; no cyanosis and no clubbing Skin no rashes, warm and dry Neurologic moves all extremities and awake; no focal motor deficits Psychiatric A+Ox3, euthymic affect Lymphatic no lymphedema Discharge Plan Discharge Items Patient Disposition: Home - Self-Care Reason For Visit: UGIB, SYNCOPE, ELEVATED TROP Discharge Diagnosis: GI bleed Acute blood loss anemia Syncope Condition on Discharge: Good Activity: As commented below Lifting: Gradually increase as tolerated Bathing: No limitations Exercise/Sports: Gradually increase as tolerated Driving/Machine Use: No driving until seen by your primary care physician and cleared to do so Non-emergency contact: Primary Care Provider and [employer] Att[employer] Call non-emergency contact if: you have any medication questions and your symptoms worsen Follow-up/Referrals: Braulio Law MD [Physician] - (An appointment will be arranged for you within 1-2 weeks to remove your Su catheter.) Kristen Melendez CRNP [Primary Care Provider] - (Please follow-up within 1-2 weeks) Shannon Sarkar DO [Physician] - (Please follow-up in 2 weeks to see if you need to be referred for a small bowel capsule endoscopy) Diet: Heart Healthy Addtl Attending Provider Instructions: You are admitted with gastrointestinal bleeding that may be coming from small bleeding blood vessels throughout the intestine. Some of these were found in your colon and were treated with laser. You have multiple polyps biopsied and the results of these are pending at the time of discharge. Your bleeding stopped with holding your Xarelto. You can restart your Xarelto on 07/07 but if you have recurrence of dark stools, please stop the medication and call your doctor or come to the hospital. You were given IV iron to help build your blood count back up. You should also take vitamin B12 to help build your blood count back up as you are deficient in this. You may need to have a small bowel capsule endoscopy as an outpatient. This is where you swallow a camera pill that takes pictures of your gut as it traverses through your GI tract to look for areas of bleeding. Please have your PCP check your complete blood count within 1 week to ensure that is continuing to normalize. You have scar tissue in your urethra and had to have a Su catheter placed. This should remain in place and an appointment with urology will be arranged for you within 1-2 weeks to attempt to remove your catheter to see if you can urinate on your own. It was a pleasure taking care of you! Olinda Cordero MD Pending Studies at Discharge: Yes (Colon polyp biopsies) Stand-Alone Forms: [facility] Medications and DC Order Prescriptions: New cyanocobalamin (vitamin B-12) 1,000 mcg capsule 1,000 mcg PO DAILY Qty: 30 0RF Rx Instructions: [id number] Continued ipratropium-albuterol 0.5 mg-3 mg(2.5 mg base)/3 mL solution for nebulization 3 ml INHALATION Q6H PRN (Reason: Shortness Of Breath) Patient Comments: uses at least once per day magnesium oxide 400 mg (241.3 mg magnesium) tablet 400 mg PO BID rosuvastatin 5 mg tablet 5 mg PO QAM ranolazine 500 mg tablet extended release 12 hr 500 mg PO BID Trelegy Ellipta 200-62.5-25 mcg blister with device 1 inh INHALATION QAM diltiazem HCl 240 mg capsule,extended release 24hr 240 mg PO QAM furosemide 20 mg tablet 20 - 40 mg PO UD Rx Instructions: 2 tablets on ODD days and 1 tablet on EVEN days tamsulosin 0.4 mg capsule 0.4 mg PO DAILY gabapentin 300 mg capsule 300 mg PO HS fluticasone propionate [Flonase] 50 mcg/actuation [place],Suspension 1 spray INTRANASAL DAILY PRN (Reason: Congestion) loratadine [Claritin] 10 mg Tablet 10 mg PO DAILY PRN (Reason: Congestion) [id number] 3.5-500-10,000 [id number]-bwak Ointment 1 applic TOPICAL BID PRN (Reason: APPLY TO EAR NEEDED) Ozempic 1 mg/dose (4 mg/3 mL) pen injector 1 mg SUBCUT WK Rx Instructions: SUNDAYS Held Xarelto 15 mg tablet 15 mg PO HS Hold Instructions: Resume on 07/07/25. Discharge Orders: Discharge Order (Routine); Ordered 07/05/25 Ordered By: Olinda Cordero Admission Data Admit Date/Time: 07/01/25 21:49 Attending Provider: Olinda Cordero Admit Provider: Nolna Sharma Primary Care Provider: Kristen Melendez Other Providers: Nolan Sharma; Shannon Sarkar; Braulio Law Other Interventions: Discharge Summary Assessment (RN) Last Done: 07/04/25 15:23 Hospital Stay Data Consultations 07/01/25 20:36 ED Decision to Admit Stat 07/01/25 22:46 Consult Gastroenterology Routine 07/02/25 05:11 Consult Urology Routine 07/05/25 07:55 Consult Urology Routine Procedures Performed Operation Date: 07/04/25 16:45 Actual Procedures p Colonoscopy Polypectomy - Shannon Sarkar DO Diagnostic Imagining Performed 07/01/25 18:02 CT abd pelvis IV con only Stat CT head/brain wo con Stat Echocardiogram Pending Results Patient Have Any Pending Studies at Discharge: Yes (Colon polyp biopsies) Discharge Instructions Given to Patient (Per Discharging Provider) You are admitted with gastrointestinal bleeding that may be coming from small bleeding blood vessels throughout the intestine. Some of these were found in your colon and were treated with laser. You have multiple polyps biopsied and the results of these are pending at the time of discharge. Your bleeding stopped with holding your Xarelto. You can restart your Xarelto on 07/07 but if you have recurrence of dark stools, please stop the medication and call your doctor or come to the hospital. You were given IV iron to help build your blood count back up. You should also take vitamin B12 to help build your blood count back up as you are deficient in this. You may need to have a small bowel capsule endoscopy as an outpatient. This is where you swallow a camera pill that takes pictures of your gut as it traverses through your GI tract to look for areas of bleeding. Please have your PCP check your complete blood count within 1 week to ensure that is continuing to normalize. You have scar tissue in your urethra and had to have a Su catheter placed. This should remain in place and an appointment with urology will be arranged for you within 1-2 weeks to attempt to remove your catheter to see if you can urinate on your own. It was a pleasure taking care of you! Olinda Cordero MD Total Time Total Time Spent Total Time Spent (In Minutes): 35 minutes Total Time Includes: Examination of the Patient, Discharge Planning, Medication Reconciliation and Communication With Other Providers (Urology) Coding Level of Care Code 28405 INP/OBS DISCH >30 MIN Diagnoses UGIB (upper gastrointestinal bleed) K92.2 Elevated troponin R79.89 Syncope R55 Syncope type: unspecified Urinary retention R33.9
--- NOTE | 2025-07-07 22:01 | Electrocardiogram Report ---
Test Reason : Blood Pressure : */* mmHG Vent. Rate : 105 BPM Atrial Rate : * BPM P-R Int : * ms QRS Dur : 128 ms QT Int : 370 ms P-R-T Axes : * 40 20 degrees QTcB Int : 489 ms Atrial fibrillation with rapid ventricular response with premature ventricular or aberrantly conducte d complexes Right bundle branch block Abnormal ECG When compared with ECG of 07-Jul-2023 10:31, T wave inversion less evident in Anterior leads Confirmed by Tashi Rick ([id number]) on 07/07/2025 10:00:54 PM Referred By: REFERRED SELF Confirmed By: Tashi Rick
== END 2025-07-05 13:49 | disposition home or self-care (01) | DRG 378 ==
LOC: ED 17:41 → SUATTDRO 21:49 → 2E 21:49 → INTOOBSV 21:49 → 2E 22:10

== ENCOUNTER 2025-07-21 09:57 | Observation (INO) ==
[2025-07-21] MEDS: OPTIRAY 320 125ml IV ONE (10:13)
[2025-07-21 10:19] LABS: Hematocrit (blood only) 22.8 % (42.0-52.0); Hemoglobin 7.3 g/dl (14.0-18.0); Immature Granulocytes # (auto) 0.02 K/uL (0.01-0.20); Immature Granulocytes % (auto) 0.3 %; Mean Corpuscular Hemoglobin 34.0 pg (25.0-34.0); Mean Corpuscular Volume 106.0 fL (80.0-100.0); Platelet Count 316 K/uL (130-400); RDW Standard Deviation 72.4 fL (36.4-46.3); Red Blood Count 2.15 M/uL (4.70-6.10); White Blood Count 6.72 K/ul (4.8-10.8)
--- NOTE | 2025-07-21 10:29 | CT Scan Report ---
HISTORY: Dizziness and lightheadedness TECHNIQUE: CT of the head without contrast. Images are presented in axial, sagittal, and coronal reformats. COMPARISON: Head CT dated 07/21/2025. FINDINGS: No evidence of intracranial hemorrhage, abnormal extra axial fluid collection, mass effect, or midline shift. Mild to moderate volume loss and chronic microvascular ischemic changes.Ventricular caliber is appropriate. Fourth ventricle is midline. Basal cisterns are patent.Ortiz-white differentiation is maintained. Intracranial atherosclerotic vascular calcifications. Globes and orbits are unremarkable.Soft tissues about the skull base and scalp are unremarkable.Paranasal sinuses and mastoid air cells are clear. No calvarial fracture. 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 IMPRESSION: * No acute intracranial findings. * Mild to moderate volume loss and chronic microvascular ischemic changes. Electronically signed by Ortiz eBgum 07-21-2025 10:29 AM
--- NOTE | 2025-07-21 10:35 | CT Scan Report ---
HISTORY: Dizziness and lightheadedness TECHNIQUE: CT Angiography of the neck was performed following uneventful administration of with IV contrast. Images are presented in axial, sagittal, coronal reformats. Coronal and sagittal 3D MIP reconstructions are provided. COMPARISON: CT angiography of the head from the same day. FINDINGS: Angiography: Mild atherosclerotic vascular calcification involving the aorta and arch vessels. The common carotid arteries are patent. Atherosclerotic plaque at the right carotid bifurcation with 60% luminal narrowing of the proximal right internal carotid artery. Atherosclerotic plaque at the left carotid bifurcation with less than 50% stenosis of the proximal left internal carotid artery. Cervical internal carotid arteries are patent at the skull base. Severe stenosis at the origin of the right vertebral artery. Severe stenosis at the origin of the left vertebral artery. Right vertebral artery is slightly dominant. Cervical vertebral arteries are otherwise patent. Soft tissues: The soft tissues of the neck are unremarkable. Lung apices: Spiculated masslike density in the lateral right lung apex on series 1 image 7 is partially imaged Measuring at least 2.5 x 2.5 cm. Bones: No acute osseous abnormality. Mild to moderate degenerative changes of the cervical spine. IMPRESSION: * Spiculated masslike opacity in the right lung apex on series 1 image 7 is partially imaged and measures at least 2.5 x 2.5 cm. This raises the possibility of lung malignancy and requires further evaluation with contrast-enhanced CT of the chest. * Severe stenosis at both vertebral artery origins. Cervical vertebral arteries are otherwise patent. Right vertebral artery is slightly dominant. * Moderate stenosis of the proximal right internal carotid artery with luminal narrowing of approximately 60%. * Mild stenosis of the proximal left internal carotid artery with luminal narrowing of less than 50%. ACT 112: Positive. There are findings on this exam that require communication between the performing entity and the patient following Patient Test Result Information Act ([place] ACT 112) guidelines. Electronically signed by Ortiz Begum 07-21-2025 10:35 AM
--- NOTE | 2025-07-21 10:38 | CT Scan Report ---
HISTORY: Dizziness and lightheadedness TECHNIQUE: CT Angiography of the head was performed following uneventful administration of IV contrast. Images are presented in axial, sagittal, coronal reformats. Coronal and sagittal 3D MIP reconstructions are provided. COMPARISON: CT of the head without contrast from the same day. FINDINGS: Angiography: Intradural vertebral arteries are patent. Basilar artery is patent. origin of the right posterior cerebral artery, which is patent. Conventional origin of the left posterior cerebral artery, which is patent. Mild atherosclerotic calcification along the cavernous internal carotid arteries without hemodynamically significant stenosis. Both A1 anterior cerebral artery branches are patent. Patent anterior communicating artery. Anterior cerebral artery branches are patent. The right M1 and proximal M2 segment branches are patent. Left M1 and proximal M2 segment branches are patent. More distal MCA branches appear symmetric. Soft tissues: No enhancing intracranial mass or vascular malformation. No mass effect or midline shift. Soft tissues of the skull base and scalp are unremarkable. Globes and orbits are unremarkable. Bones: No paranasal sinus air-fluid levels. Mastoid air cells are well aerated. IMPRESSION: * No evidence of central vessel occlusion or focal hemodynamically significant stenosis. * Anatomic variation of the [place] of [place] as detailed above. Electronically signed by Ortiz Begum 07-21-2025 10:37 AM
[2025-07-21 10:40] LABS: Alanine Aminotransferase 8.0 U/L (7-52); Albumin Globulin Ratio 1.0 (0.9-2); Albumin Level 3.3 gm/dl (3.4-5.0); Alkaline Phosphatase 48.0 U/L (34-104); Anion Gap 7.0 (3-11); Bilirubin,Total 0.7 mg/dl (0.2-1.0); Blood Urea Nitrogen 63.0 mg/dl (6-23); Calcium 9.2 mg/dl (8.6-10.3); Carbon Dioxide 24.0 mmol/L (21-32); Chloride 106.0 mmol/L (98-107); Creatinine Clr Calc Pharmacy 38.4 ml/min; Globulin 3.4 gm/dl (2.5-4.0); Glucose 240.0 mg/dl (70-99(Fasting)); Magnesium 3.6 mg/dl (1.7-2.4); Potassium 4.5 mmol/L (3.5-5.1); Sodium 137.0 mmol/L (136-145); Total Protein 6.7 gm/dl (6.0-8.3)
--- NOTE | 2025-07-21 10:44 | XRay Report ---
HISTORY: Neurodeficit. Acute stroke. TECHNIQUE: Portable AP radiograph of the chest. COMPARISON: Chest radiograph dated 07/01/2022. FINDINGS: Nodular opacity overlying the right upper lungMeasuring 4.4 cm requires further evaluation with contrast-enhanced CT. Bandlike right basilar opacity favoring discoid atelectasis. Left lung is clear. Mild cardiomegaly. Left-sided aortic arch containing atherosclerotic calcification. Midline trachea. No acute osseous abnormality. IMPRESSION: * 4.4 cm masslike opacity overlying the right upper lobe. Further evaluation is recommended with contrast-enhanced CT of the chest. This could represent pneumonia or malignancy. * Bandlike right lower lung opacity favoring discoid atelectasis. Electronically signed by Ortiz Begum 07-21-2025 10:44 AM
--- NOTE | 2025-07-21 10:53 | Emergency Department Note ---
History of Present Illness General Chief complaint: Stroke Alert Stated complaint: DIZZINESS, WEAKNESS, CONFUSION Time Seen by Provider: 07/21/25 10:05 Source: EMS History of Present Illness Provider complaint: Weakness 80-year-old male on Xarelto presents emergency department for weakness. Patient reports he has been feeling increasingly weak. Per EMS patient was acutely confused this morning. Home Medications Medication Instructions Recorded Confirmed Type fluticasone fur. 200 mcg-umeclid 1 inh inhalation QAM 07/01/23 07/21/25 History 62.5 mcg-vilant 25 mcg inhalat.powder (Trelegy Ellipta) ipratropium 0.5 mg-albuterol 3 mg 3 ml inhalation Q6H PRN Shortness 07/01/23 07/21/25 History (2.5 mg base)/3 mL nebulization Of Breath soln magnesium oxide 400 mg (241.3 mg 0 mg PO BID 07/01/23 07/21/25 History magnesium) tablet ranolazine 500 mg tablet,extended 500 mg PO BID 07/01/23 07/21/25 History release,12 hr rivaroxaban 15 mg tablet (Xarelto) 15 mg PO HS 07/01/23 07/21/25 History rosuvastatin 5 mg tablet 5 mg PO QAM 07/01/23 07/21/25 History diltiazem HCl 240 mg 0 mg PO QAM 08/17/23 07/21/25 History capsule,extended release 24 hr furosemide 20 mg tablet 20 - 40 mg PO UD 08/17/23 07/21/25 History fluticasone propionate 50 1 spray intranasal DAILY PRN 07/01/25 07/21/25 History mcg/actuation nasal Congestion spray,suspension gabapentin 300 mg capsule 300 mg PO HS 07/01/25 07/21/25 History loratadine 10 mg tablet (Claritin) 10 mg PO DAILY PRN Congestion 07/01/25 07/21/25 History neomycin-bacitracn Zn-polymyxin 1 applic topical BID PRN APPLY TO 07/01/25 07/21/25 History 3.5 mg-500 unit-10,000 unit top EAR NEEDED oint semaglutide 1 mg/dose (4 mg/3 mL) 1 mg subcut WK 07/01/25 07/21/25 History subcutaneous pen injector (Ozempic) tamsulosin 0.4 mg capsule 0.4 mg PO DAILY 07/01/25 07/21/25 History cyanocobalamin (vitamin B-12) 1,000 mcg PO DAILY #30 caps 07/05/25 07/21/25 Rx 1,000 mcg capsule ferrous sulfate 325 mg (65 mg 325 mg PO DAILY 07/21/25 07/21/25 History iron) tablet,delayed release Allergies Allergy/AdvReac Type Severity Reaction Status Date / Time nitrofurantoin Allergy Severe SHORT OF Verified 07/03/25 13:49 [From Macrobid] BREATH, DIZZY, LIGHTHEADED, NAUSEA/VOMITING Past Med/Surg History Problem List (Updated 07/21/25 @ 12:02 by Jayson Chawla MD) Pneumonia (Acute) GIB (gastrointestinal bleeding) (Acute) Brain TIA (Acute) Urinary retention Incomplete bladder emptying UGIB (upper gastrointestinal bleed) Anticoagulated (Acute) Abrasion of left knee (Acute) Acute head trauma (Acute) Syncope (Acute) Elevated troponin (Acute) GI bleed (Acute) Encounter for pre-operative examination Somatic dysfunction of lumbar region Acute low back pain (Acute) Acute diverticulitis UTI (urinary tract infection), uncomplicated Acute blood loss anemia B12 deficiency Elevated troponin History of leukemia COPD (chronic obstructive pulmonary disease) CKD (chronic kidney disease) stage 3, GFR 30-59 ml/min CAD (coronary artery disease) DM II (diabetes mellitus, type II), controlled currently on Ozempic CHF (congestive heart failure) GERD (gastroesophageal reflux disease) Afib currently on xarelto; f/u fredrick jiménez Acute myeloid leukemia, 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 Medical History Neuropathy Hx of fracture of nose multiple times in the past (years ago) Sleep apnea cpap Chronic obstructive pulmonary disease GI bleed 06/2023, recently hospitalized at [facility] for 5 days; found to have diverticulitis Non-ST elevation IA (NSTEMI) pt denies Surgical History History of total right knee replacement History of total left knee replacement Hx of umbilical hernia repair done w/cholecystectomy Hx of cholecystectomy Hx of colonoscopy History of cardiac cath ~10-12 years, failed stress test, [facility] fredrick, no stents; f/u fredrick jiménez 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, [facility] History of esophagogastroduodenoscopy (EGD) Social History Smoking Status: Former smoker Tobacco Type: Cigarettes Second Hand Exposure: No; Do You Dip or Chew Tobacco: No; Hx Alcohol Use: No Hx Substance Use: No Preferred Language: Persian Communication Ability: Effective [employer]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 Beliefs That Will Affect Care: None Current Living Situation: Alone Feels Safe at Home: Yes Assistive Devices: None Physical Exam Vital Signs Vital Signs - 24 hr 07/21/25 10:04 07/21/25 10:12 07/21/25 10:15 Temperature 36.7 C Temperature Source Oral Pulse Rate 87 Pulse Rate [Apical] 87 86 Pulse Rhythm Regular Respiratory Rate 20 19 22 Respiratory Effort / Characteristics Non-Labored Spontaneous Non-Labored Spontaneous Non-Labored Spontaneous Respiratory Depth Normal Normal Normal Respiratory Pattern Regular Regular Regular Blood Pressure 115/77 Blood Pressure [Right Arm] 112/69 120/77 Blood Pressure Mean 89 Blood Pressure Mean [Right Arm] 83 91 Blood Pressure Position Sitting Pulse Oximetry 100 97 97 Oxygen Delivery Method Room Air Room Air Room Air Sepsis Recent Fever Within 48 Hours No Sepsis New/Unexplained Change in Mental Status No Sepsis Action Taken by Nursing No Action Required 07/21/25 10:37 07/21/25 11:46 Temperature Temperature Source Pulse Rate Pulse Rate [Apical] 86 83 Pulse Rhythm Respiratory Rate 20 20 Respiratory Effort / Characteristics Non-Labored Respiratory Depth Normal Respiratory Pattern Blood Pressure Blood Pressure [Right Arm] 112/65 102/70 Blood Pressure Mean Blood Pressure Mean [Right Arm] 80 80 Blood Pressure Position Pulse Oximetry 98 97 Oxygen Delivery Method Room Air Room Air Sepsis Recent Fever Within 48 Hours Sepsis New/Unexplained Change in Mental Status Sepsis Action Taken by Nursing Physical Exam GENERAL: oriented to person, place, and time. appears well-developed and well- nourished. HENT: Exam performed. - Head: Normocephalic and atraumatic. EYES: Conjunctivae and EOM are normal. Right eye exhibits no discharge. Left eye exhibits no discharge. No scleral icterus. NECK: Normal range of motion. Neck supple. No JVD present. CV: Normal rate, irregular rhythm, normal heart sounds and intact distal pulses. There is no peripheral edema. Palpable radial pulses bue. PULM/CHEST: Effort normal and breath sounds normal. No respiratory distress. No stridor. no wheezes. no rales. ABD: The abdomen is soft. There is no tenderness. NEURO: NIHSS: 2 (4:1, 10:1) Course Course 1005: The patient was evaluated in room B11. A complete history and physical exam was performed Cardiac monitoring: An order was placed for continuous cardiac monitoring. The monitor shows a rate of 80 with atrial fibrilation rhythm interpreted by me According to EMS the patient did not have facial droop or dysarthria on their presentation and had a negative stroke scale. Apparently this developed and route. Patient is on Xarelto, not a TNKase candidate. Patient will have angios and CT scan of the head performed to make sure there is no large vessel occlusion. 1056: Vital signs stable. Labs show a hemoglobin of 7.3. Creatinine 1.79. CT scan shows no large vessel occlusion no ICH. There is mention of possible lung mass. Will obtain CT of the chest without contrast. 1200: Vital signs stable. Patient having melanotic stools. Hemoccult positive. Patient was started on Protonix bolus and drip. CT of the chest shows possible mass versus pneumonia. Discussed these findings with the son and the patient. Son reports that the patient has known about a lesion on his lung for quite some time. Patient be treated empirically with Zosyn for possible pneumonia given his recent admission. [facility]. Administered Medications Discontinued Medications Ioversol (Optiray 320 125ml) 119 ml IV ONCE ONE Stop: 07/21/25 10:13 Last Admin: 07/21/25 10:13 Dose: 119 ml Documented By: DARREL Medical Decision Making Laboratory Data Attestation: I reviewed the patient's lab results. 07/21/25 10:10 07/21/25 10:10 Lab Results 07/21/25 07/21/25 Range/Units 10:10 10:15 WBC 6.72 (4.8-10.8) K/ul RBC 2.15 L (4.70-6.10) M/uL Hgb 7.3 L (14.0-18.0) g/dl POC Hgb 6.8 L* (14.0-18.0) g/dl Hct 22.8 L (42.0-52.0) % POC Hct 20 L* (42-52) % MCV 106.0 H (80.0-100.0) fL MCH 34.0 (25.0-34.0) pg MCHC 32.0 (32.0-36.0) g/dL RDW Std Deviation 72.4 H (36.4-46.3) fL RDW Coeff of [place] 19.0 H (11.5-14.5) % Plt Count 316 (130-400) K/uL MPV 10.3 (9.4-12.4) fL Immature Gran % (Auto) 0.3 % Neut % (Auto) 58.6 % Lymph % (Auto) 32.4 % Sutton % (Auto) 6.5 % Eos % (Auto) 1.5 % Baso % (Auto) 0.7 % Neut # (Auto) 3.93 (1.40-6.50) K/uL Lymph # (Auto) 2.18 (1.20-3.40) K/uL Sutton # (Auto) 0.44 (0.11-0.59) K/uL Eos # (Auto) 0.10 (0.00-0.50) K/uL Baso # (Auto) 0.05 (0.00-0.20) K/uL Immature Gran # (Auto) 0.02 (0.01-0.20) K/uL Absolute Nucleated RBC 0.02 (0.00-0.12) K/uL Nucleated RBC % (auto) 0.3 % Polychromasia 2+ Basophilic Stippling 1+ Anisocytosis Present PT 13.8 H (9.0-12.0) Seconds INR 1.3 H (0.9-1.1) APTT 27 (21-31) Seconds PTT Ratio 1.0 POC Sodium 138 (135-144) mmol/L Sodium 137 (136-145) mmol/L POC Potassium 4.7 (3.3-5.0) mmol/L Potassium 4.5 (3.5-5.1) mmol/L POC Chloride 107 (101-112) mmol/L Chloride 106 (98-107) mmol/L Carbon Dioxide 24 (21-32) mmol/L POC Total CO2 23 L (24-31) mmol/L Anion Gap 7 (3-11) POC Anion Gap 14.0 L (16-25) mmol/L POC BUN 60 H (7-18) mg/dl BUN 63 H (6-23) mg/dl Creatinine 1.79 H (0.6-1.4) mg/dl POC Creatinine 1.9 H (0.6-1.3) mg/dl Est Cr Clr Drug Dosing 38.4 ml/min eGFR 37.37 BUN/Creatinine Ratio 35.2 H (10-20) Glucose 240 H (70-99(Fasting)) mg/dl POC Glucose (other) 230 H (70-99) mg/dl Calcium 9.2 (8.6-10.3) mg/dl POC Ioniz Calcium Parth 1.21 (1.12-1.32) mmol/l Magnesium 3.6 H (1.7-2.4) mg/dl Total Bilirubin 0.7 (0.2-1.0) mg/dl AST 12 L (13-39) U/L ALT 8 (7-52) U/L Alkaline Phosphatase 48 (34-104) U/L Troponin I High Sens 202.9 H* (0-20) pg/ml Total Protein 6.7 (6.0-8.3) gm/dl Albumin 3.3 L (3.4-5.0) gm/dl Globulin 3.4 (2.5-4.0) gm/dl Albumin/Globulin Ratio 1.0 (0.9-2) Blood Type O Positive Antibody Screen NEGATIVE Imaging Data Radiologist's Impression: Chest X-Ray 07/21/25 10:05 HISTORY: Neurodeficit. Acute stroke. TECHNIQUE: Portable AP radiograph of the chest. COMPARISON: Chest radiograph dated 07/01/2022. FINDINGS: Nodular opacity overlying the right upper lungMeasuring 4.4 cm requires further evaluation with contrast-enhanced CT. Bandlike right basilar opacity favoring discoid atelectasis. Left lung is clear. Mild cardiomegaly. Left-sided aortic arch containing atherosclerotic calcification. Midline trachea. No acute osseous abnormality. IMPRESSION: * 4.4 cm masslike opacity overlying the right upper lobe. Further evaluation is recommended with contrast-enhanced CT of the chest. This could represent pneumonia or malignancy. * Bandlike right lower lung opacity favoring discoid atelectasis. Electronically signed by Ortiz Begum 07-21-2025 10:[address] 07/21/25 10:05 HISTORY: Dizziness and lightheadedness TECHNIQUE: CT of the head without contrast. Images are presented in axial, sagittal, and coronal reformats. COMPARISON: Head CT dated 07/21/2025. FINDINGS: No evidence of intracranial hemorrhage, abnormal extra axial fluid collection, mass effect, or midline shift. Mild to moderate volume loss and chronic microvascular ischemic changes.Ventricular caliber is appropriate. Fourth ventricle is midline. Basal cisterns are patent.Ortiz-white differentiation is maintained. Intracranial atherosclerotic vascular calcifications. Globes and orbits are unremarkable.Soft tissues about the skull base and scalp are unremarkable.Paranasal sinuses and mastoid air cells are clear. No calvarial fracture. 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 IMPRESSION: * No acute intracranial findings. * Mild to moderate volume loss and chronic microvascular ischemic changes. Electronically signed by Ortiz Begum 07-21-2025 10:29 AM Head CTA 07/21/25 10:05 HISTORY: Dizziness and lightheadedness TECHNIQUE: CT Angiography of the head was performed following uneventful administration of IV contrast. Images are presented in axial, sagittal, coronal reformats. Coronal and sagittal 3D MIP reconstructions are provided. COMPARISON: CT of the head without contrast from the same day. FINDINGS: Angiography: Intradural vertebral arteries are patent. Basilar artery is patent. origin of the right posterior cerebral artery, which is patent. Conventional origin of the left posterior cerebral artery, which is patent. Mild atherosclerotic calcification along the cavernous internal carotid arteries without hemodynamically significant stenosis. Both A1 anterior cerebral artery branches are patent. Patent anterior communicating artery. Anterior cerebral artery branches are patent. The right M1 and proximal M2 segment branches are patent. Left M1 and proximal M2 segment branches are patent. More distal MCA branches appear symmetric. Soft tissues: No enhancing intracranial mass or vascular malformation. No mass effect or midline shift. Soft tissues of the skull base and scalp are unremarkable. Globes and orbits are unremarkable. Bones: No paranasal sinus air-fluid levels. Mastoid air cells are well aerated. IMPRESSION: * No evidence of central vessel occlusion or focal hemodynamically significant stenosis. * Anatomic variation of the [place] as detailed above. Electronically signed by Ortiz Begum 07-21-2025 10:37 AM Neck CTA 07/21/25 10:05 HISTORY: Dizziness and lightheadedness TECHNIQUE: CT Angiography of the neck was performed following uneventful administration of with IV contrast. Images are presented in axial, sagittal, coronal reformats. Coronal and sagittal 3D MIP reconstructions are provided. COMPARISON: CT angiography of the head from the same day. FINDINGS: Angiography: Mild atherosclerotic vascular calcification involving the aorta and arch vessels. The common carotid arteries are patent. Atherosclerotic plaque at the right carotid bifurcation with 60% luminal narrowing of the proximal right internal carotid artery. Atherosclerotic plaque at the left carotid bifurcation with less than 50% stenosis of the proximal left internal carotid artery. Cervical internal carotid arteries are patent at the skull base. Severe stenosis at the origin of the right vertebral artery. Severe stenosis at the origin of the left vertebral artery. Right vertebral artery is slightly dominant. Cervical vertebral arteries are otherwise patent. Soft tissues: The soft tissues of the neck are unremarkable. Lung apices: Spiculated masslike density in the lateral right lung apex on series 1 image 7 is partially imaged Measuring at least 2.5 x 2.5 cm. Bones: No acute osseous abnormality. Mild to moderate degenerative changes of the cervical spine. IMPRESSION: * Spiculated masslike opacity in the right lung apex on series 1 image 7 is partially imaged and measures at least 2.5 x 2.5 cm. This raises the possibility of lung malignancy and requires further evaluation with contrast-enhanced CT of the chest. * Severe stenosis at both vertebral artery origins. Cervical vertebral arteries are otherwise patent. Right vertebral artery is slightly dominant. * Moderate stenosis of the proximal right internal carotid artery with luminal narrowing of approximately 60%. * Mild stenosis of the proximal left internal carotid artery with luminal narrowing of less than 50%. ACT 112: Positive. There are findings on this exam that require communication between the performing entity and the patient following Patient Test Result Information Act ([place] ACT 112) guidelines. Electronically signed by Ortiz Begum 07-21-2025 10:[address] 07/21/25 10:48 HISTORY: Lung mass TECHNIQUE: CT imaging of the chest was performed without IV contrast. Images are presented in axial, sagittal, and coronal reformats. COMPARISON: None. FINDINGS: Lungs: SpiculatedMasslike opacity in the peripheral right upper lobe on series3 image 17 measuring 4.3 x 2.4 x 3.3 cm suspicious for lung malignancy. mild atelectasis at the right lung base. Spiculated nodular density in the left upper lobe on series 3 image 30 measuring 2 cm. No pneumothorax or effusion. Central tracheobronchial tree is patent. Heart/Mediastinum: Mild cardiomegaly. Trace pericardial effusion. Coronary artery calcifications are present with severe multivessel disease. Severe aortic valvular and mitral annular calcification. Scattered subcentimeter short axis mediastinal and hilar lymph nodes are nonspecific. Thoracic esophagus is unremarkable. Included thyroid gland is unremarkable. Vasculature: No thoracic aortic aneurysm. Moderate atherosclerotic vascular disease of the aorta and arch vessels. Main pulmonary artery is normal in caliber. Soft Tissues: Unremarkable. Upper Abdomen: Gallbladder is surgically absent. Contrast in both renal collecting systems from a prior study. Colonic diverticulosis. Bones: Moderate degenerative changes of the spine. No acute osseous abnormality. IMPRESSION: * 4.2 cm spiculated masslike opacity in the lateral right upper lobe on series 3 image 17is suspicious for lung malignancy with differential also including pneumonia. 2 cm spiculated nodule in the left upper lobe on series 3 image 30. Further evaluation is recommended with PET/CT and/or biopsy. * Scattered nonspecific mediastinal and hilar lymph nodes measuring less than 1 cm in short axis. * Mild cardiomegaly. Severe coronary artery atherosclerotic vascular disease. Severe aortic valvular and mitral annular calcification. * Additional chronic and/or incidental findings as above. ACT 112: Positive. There are findings on this exam that require communication between the performing entity and the patient following Patient Test Result Information Act ([place] ACT 112) guidelines. Electronically signed by Ortiz Begum 07-21-2025 11:37 AM ECG Data Attestation: I personally reviewed and interpreted this ECG as follows: Rate (beats per minute): 82 Rhythm: + atrial fibrillation ECG Intervals/blocks: + Right Bundle branch block ECG ST segments: + Normal ST segments ECG Findings: + PVCs Additional Comments: QRS 122 QTc 488 MDM Narrative 1005: The patient was evaluated in room B11. A complete history and physical exam was performed Cardiac monitoring: An order was placed for continuous cardiac monitoring. The monitor shows a rate of 80 with atrial fibrilation rhythm interpreted by me According to EMS the patient did not have facial droop or dysarthria on their presentation and had a negative stroke scale. Apparently this developed and route. Patient is on Xarelto, not a TNKase candidate. Patient will have angios and CT scan of the head performed to make sure there is no large vessel occlusion. 1056: Vital signs stable. Labs show a hemoglobin of 7.3. Creatinine 1.79. CT scan shows no large vessel occlusion no ICH. There is mention of possible lung mass. Will obtain CT of the chest without contrast. 1200: Vital signs stable. Patient having melanotic stools. Hemoccult positive. Patient was started on Protonix bolus and drip. CT of the chest shows possible mass versus pneumonia. Discussed these findings with the son and the patient. Son reports that the patient has known about a lesion on his lung for quite some time. Patient be treated empirically with Zosyn for possible pneumonia given his recent admission. Patient be admitted to the [facility] hospitalist team. Impression & Plan Brain TIA, GIB (gastrointestinal bleeding), Pneumonia Discharge Plan Visit Data Chief Complaint: Stroke Alert Stated Complaint: DIZZINESS, WEAKNESS, CONFUSION ED Provider: Jayson Chawla Discharge Problem: Brain TIA, GIB (gastrointestinal bleeding), Pneumonia Patient Disposition: Admitted As Inpatient Condition: Fair Forms Stand Alone Forms: My [facility] Prescriptions Prescriptions: No Action ipratropium-albuterol 0.5 mg-3 mg(2.5 mg base)/3 mL solution for nebulization 3 ml INHALATION Q6H PRN (Reason: Shortness Of Breath) Patient Comments: uses at least once per day magnesium oxide 400 mg (241.3 mg magnesium) tablet 0 mg PO BID Patient Comments: 07/21- OTC/ last filled 02/08 90 day supply 180 rosuvastatin 5 mg tablet 5 mg PO QAM ranolazine 500 mg tablet extended release 12 hr 500 mg PO BID Xarelto 15 mg tablet 15 mg PO HS Hold Instructions: Resume on 07/07/25. Trelegy Ellipta 200-62.5-25 mcg blister with device 1 inh INHALATION QAM diltiazem HCl 240 mg capsule,extended release 24hr 0 mg PO QAM Patient Comments: 07/21- no fill history unable to verify. original:240 mg po qam furosemide 20 mg tablet 20 - 40 mg PO UD Rx Instructions: 2 tablets on ODD days and 1 tablet on EVEN days tamsulosin 0.4 mg capsule 0.4 mg PO DAILY gabapentin 300 mg capsule 300 mg PO HS fluticasone propionate 50 mcg/actuation [place],Suspension 1 spray INTRANASAL DAILY PRN (Reason: Congestion) Patient Comments: 07/21- otc/no fill history unable to verify loratadine [Claritin] 10 mg Tablet 10 mg PO DAILY PRN (Reason: Congestion) Patient Comments: 07/21- otc unable to verify [id number] 3.5-500-10,000 [id number] Ointment 1 applic TOPICAL BID PRN (Reason: APPLY TO EAR NEEDED) Patient Comments: 07/21- otc unable to verify Ozempic 1 mg/dose (4 mg/3 mL) pen injector 1 mg SUBCUT WK Rx Instructions: SUNDAYS cyanocobalamin (vitamin B-12) 1,000 mcg capsule 1,000 mcg PO DAILY Qty: 30 0RF Patient Comments: 07/21- otc unable to verify Rx Instructions: [id number] ferrous sulfate 325 mg (65 mg iron) tablet,delayed release (DR/EC) 325 mg PO DAILY Referrals Referrals: Kristen Melendez CRNP [Primary Care Provider] - Discharge Problem: GIB (gastrointestinal bleeding) Qualifiers: GI bleed type/associated pathology: unspecified gastrointestinal hemorrhage type Qualified Code(s): K92.2 - Gastrointestinal hemorrhage, unspecified
[2025-07-21 11:03] LABS: Anisocytosis Present; Basophilic Stippling 1+; Polychromasia 2+
[2025-07-21 11:28] LABS: INR 1.3 (0.9-1.1); Partial Thromboplastin Time 27 Seconds (21-31); Prothrombin Time 13.8 Seconds (9.0-12.0)
--- NOTE | 2025-07-21 11:37 | CT Scan Report ---
HISTORY: Lung mass TECHNIQUE: CT imaging of the chest was performed without IV contrast. Images are presented in axial, sagittal, and coronal reformats. COMPARISON: None. FINDINGS: Lungs: SpiculatedMasslike opacity in the peripheral right upper lobe on series3 image 17 measuring 4.3 x 2.4 x 3.3 cm suspicious for lung malignancy. mild atelectasis at the right lung base. Spiculated nodular density in the left upper lobe on series 3 image 30 measuring 2 cm. No pneumothorax or effusion. Central tracheobronchial tree is patent. Heart/Mediastinum: Mild cardiomegaly. Trace pericardial effusion. Coronary artery calcifications are present with severe multivessel disease. Severe aortic valvular and mitral annular calcification. Scattered subcentimeter short axis mediastinal and hilar lymph nodes are nonspecific. Thoracic esophagus is unremarkable. Included thyroid gland is unremarkable. Vasculature: No thoracic aortic aneurysm. Moderate atherosclerotic vascular disease of the aorta and arch vessels. Main pulmonary artery is normal in caliber. Soft Tissues: Unremarkable. Upper Abdomen: Gallbladder is surgically absent. Contrast in both renal collecting systems from a prior study. Colonic diverticulosis. Bones: Moderate degenerative changes of the spine. No acute osseous abnormality. IMPRESSION: * 4.2 cm spiculated masslike opacity in the lateral right upper lobe on series 3 image 17is suspicious for lung malignancy with differential also including pneumonia. 2 cm spiculated nodule in the left upper lobe on series 3 image 30. Further evaluation is recommended with PET/CT and/or biopsy. * Scattered nonspecific mediastinal and hilar lymph nodes measuring less than 1 cm in short axis. * Mild cardiomegaly. Severe coronary artery atherosclerotic vascular disease. Severe aortic valvular and mitral annular calcification. * Additional chronic and/or incidental findings as above. ACT 112: Positive. There are findings on this exam that require communication between the performing entity and the patient following Patient Test Result Information Act ([place] ACT 112) guidelines. Electronically signed by Ortiz Begum 07-21-2025 11:37 AM
[2025-07-21] MEDS: SODIUM CHLORIDE 0.9% 1,000 ML IV SCH (12:10)
[2025-07-21] MEDS: PIPERACILLIN/TAZOBACTAM 4.5 GM/120 ML BAG IV ONE (12:10)
[2025-07-21] MEDS: PANTOPRAZOLE BOLUS/DRIP IV STA (12:25)
[2025-07-21] MEDS: PANTOprazole 40 MG in DEXTROSE 5% MINI-B 100 ML IV SCH (12:55)
--- NOTE | 2025-07-21 14:38 | History & Physical Report ---
Date of Service July 21, 2025 Assessment & Plan (1) GIB (gastrointestinal bleeding): (2) Brain TIA: (3) Acute blood loss anemia: Plan 80 yr old M with PMHx of CKD III, AFib on Xarelto (resumed around 07/08/25), COPD, DM II, Obstructive CAD, HFpEF, portal gastropathy, h/o leukemia s/p bone marrow transplant, B12 deficiency, recent admission to [facility] 07/03 - 07/05/25 (eval and management of UGIB) now returns for the evaluation of worsening weakness. #Acute blood loss anemia - admit to inpt with tele - pt had EGD / C-scope last admission showing duodenitis, polps, and AVMs s/p APC - he has not had capsule endoscopy yet - hold rivaroxaban - IV Protonix 40mg BID - GI consult - monitor Hgb, transfuse PRN (blood consent completed and given to bedside RN) - check iron studies, b12 #Facial drooping - currently no symptoms - CT head showing no acute intracranial abnormality, mild to mod volume loss and chronic microvascular ischemic changes - CTA head / neck showing severe stenosis of both vertebral artery origins, mod stenosis of proximal right internal artery and mild stenosis of left internal carotid artery - check MRI brain - on rosuvastatin 5mg, increase to 20mg - check HA1c and fasting lipid panel - will request vascular surgery evaluation to assess the internal carotid artery #Weakness - due to anemia - will request PT / OT eval #AFib - CHADS2 Vasc: at lease 5 (age: +2, HF, HTN, DM II) - currently rate controlled - high risk for stroke - cont diltiazem for now #Lung mass - CTA showing 2cm spiculated FROILAN and 4.2cm RUL mass like opacities seen - pt reports he is aware of this and is being monitored as outpatient #COPD - cont trelegy #CKD III - baseline Cr 1.7 - 1.9 - monitor #HFpEF - hold lasix at this time #CAD - cont ranolazine #DM II - hold ozempic - sliding scale #Elevated troponin - actually trending down even compared to prior #DVT ppx: SCDs - pt does have IVC filter still in place #Code status: Full code #Dispo- admit to inpt History of Present Illness Chief Complaint: Weakness Primary Care Provider: KATE Vasquez 80 yr old M with PMHx of CKD III, AFib on Xarelto (resumed around 07/08/25), COPD, DM II, Obstructive CAD, HFpEF, portal gastropathy, h/o leukemia s/p bone marrow transplant, B12 deficiency, recent admission to [facility] 07/03 - 07/05/25 (eval and management of UGIB) now returns for the evaluation of worsening weakness. Pt stated that over the past few days, his stool has been black, which he mostly attributed to iron supplementation. However, starting yesterday, he started to feel diffusely weak, which continued to progress and today it was so profound he called EMS. While in the ED, there was concern for facial drooping, which was not present per EMS. Due to taking xarelto yesterday, he is not a candidate for TNKase. He did have NCCT head, CTA head and neck, which were all negative. He is otherwise stable. During previous admission, pt was to follow for capsule endoscopy, this has not been set up. Allergies Allergy/AdvReac Type Severity Reaction Status Date / Time nitrofurantoin Allergy Severe SHORT OF Verified 07/03/25 13:49 [From Macrobid] BREATH, DIZZY, LIGHTHEADED, NAUSEA/VOMITING Home Medications Medication Instructions Recorded Confirmed Type fluticasone fur. 200 mcg-umeclid 1 inh inhalation QAM 07/01/23 07/21/25 History 62.5 mcg-vilant 25 mcg inhalat.powder (Trelegy Ellipta) ipratropium 0.5 mg-albuterol 3 mg 3 ml inhalation Q6H PRN Shortness 07/01/23 07/21/25 History (2.5 mg base)/3 mL nebulization Of Breath soln magnesium oxide 400 mg (241.3 mg 0 mg PO BID 07/01/23 07/21/25 History magnesium) tablet ranolazine 500 mg tablet,extended 500 mg PO BID 07/01/23 07/21/25 History release,12 hr rivaroxaban 15 mg tablet (Xarelto) 15 mg PO HS 07/01/23 07/21/25 History rosuvastatin 5 mg tablet 5 mg PO QAM 07/01/23 07/21/25 History diltiazem HCl 240 mg 0 mg PO QAM 08/17/23 07/21/25 History capsule,extended release 24 hr furosemide 20 mg tablet 20 - 40 mg PO UD 08/17/23 07/21/25 History fluticasone propionate 50 1 spray intranasal DAILY PRN 07/01/25 07/21/25 History mcg/actuation nasal Congestion spray,suspension gabapentin 300 mg capsule 300 mg PO HS 07/01/25 07/21/25 History loratadine 10 mg tablet (Claritin) 10 mg PO DAILY PRN Congestion 07/01/25 07/21/25 History neomycin-bacitracn Zn-polymyxin 1 applic topical BID PRN APPLY TO 07/01/25 07/21/25 History 3.5 mg-500 unit-10,000 unit top EAR NEEDED oint semaglutide 1 mg/dose (4 mg/3 mL) 1 mg subcut WK 07/01/25 07/21/25 History subcutaneous pen injector (Ozempic) tamsulosin 0.4 mg capsule 0.4 mg PO DAILY 07/01/25 07/21/25 History cyanocobalamin (vitamin B-12) 1,000 mcg PO DAILY #30 caps 07/05/25 07/21/25 Rx 1,000 mcg capsule ferrous sulfate 325 mg (65 mg 325 mg PO DAILY 07/21/25 07/21/25 History iron) tablet,delayed release Past Med/Surg History Problem List (Updated 07/21/25 @ 12:02 by Jayson Chawla MD) Pneumonia (Acute) GIB (gastrointestinal bleeding) (Acute) Brain TIA (Acute) Urinary retention Incomplete bladder emptying UGIB (upper gastrointestinal bleed) Anticoagulated (Acute) Abrasion of left knee (Acute) Acute head trauma (Acute) Syncope (Acute) Elevated troponin (Acute) GI bleed (Acute) Encounter for pre-operative examination Somatic dysfunction of lumbar region Acute low back pain (Acute) Acute diverticulitis UTI (urinary tract infection), uncomplicated Acute blood loss anemia B12 deficiency Elevated troponin History of leukemia COPD (chronic obstructive pulmonary disease) CKD (chronic kidney disease) stage 3, GFR 30-59 ml/min CAD (coronary artery disease) DM II (diabetes mellitus, type II), controlled currently on Ozempic CHF (congestive heart failure) GERD (gastroesophageal reflux disease) Afib currently on xarelto; f/u fredrick jiménez Acute myeloid leukemia, 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 Medical History Neuropathy Hx of fracture of nose multiple times in the past (years ago) Sleep apnea cpap Chronic obstructive pulmonary disease GI bleed 06/2023, recently hospitalized at [facility] for 5 days; found to have diverticulitis Non-ST elevation SC (NSTEMI) pt denies Surgical History History of total right knee replacement History of total left knee replacement Hx of umbilical hernia repair done w/cholecystectomy Hx of cholecystectomy Hx of colonoscopy History of cardiac cath ~10-12 years, failed stress test, [facility], no stents; f/u fredrick jiménez 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, [facility] [place] History of esophagogastroduodenoscopy (EGD) Social History Smoking Status: Former smoker Tobacco Type: Cigarettes Second Hand Exposure: No; Do You Dip or Chew Tobacco: No; Hx Alcohol Use: No Hx Substance Use: No Preferred Language: Estonian Communication Ability: Effective Switch Operator Required: No Beliefs That Will Affect Care: None Current Living Situation: Alone Feels Safe at Home: Yes Assistive Devices: None Review of Systems Review of Systems: Comprehensive ROS completed and is otherwise negative. Physical Exam Physical Exam: Gen: no acute distress, lying in bed comfortable Skin: significant pallor HEENT: NC/AT, MMM, pallor Lungs: nonlabored breathing, CTAB CVS: s1s2nl, irregular Abd: nl bowel sounds, soft, NT / ND : no pineda Ext: no edema Neuro: AAOx3, otherwise benign exam, upper / lower extremity strength and sensation intact, CN II-XII grossly intact Psych: calm, cooperative Results & Data Results & Data Vital Signs (Past 12 Hours) Vital Signs Temp Pulse Pulse Resp BP BP Pulse Ox 07/21/25 13:42 86 21 96 07/21/25 13:30 114/67 07/21/25 13:30 82 19 98 07/21/25 13:27 84 21 69 L 07/21/25 13:12 83 17 07/21/25 13:01 122/73 07/21/25 13:01 122/73 07/21/25 13:00 93 H 20 92 07/21/25 12:54 84 20 90 07/21/25 12:51 120/73 07/21/25 12:51 120/73 07/21/25 12:39 105 H 30 H 07/21/25 12:21 81 22 96 07/21/25 12:15 114/77 07/21/25 12:15 114/77 07/21/25 12:12 100 H 16 98 07/21/25 12:11 98 H 07/21/25 12:03 90 24 94 07/21/25 12:00 114/61 07/21/25 12:00 114/61 07/21/25 11:46 83 20 102/70 97 07/21/25 11:45 88 19 102/70 97 07/21/25 11:36 87 18 118/68 97 07/21/25 10:37 86 20 112/65 98 07/21/25 10:15 86 22 120/77 97 07/21/25 10:12 87 19 112/69 97 07/21/25 10:04 36.7 C 87 20 115/77 100 O2 Del Method 07/21/25 13:42 07/21/25 13:30 07/21/25 13:30 07/21/25 13:27 07/21/25 13:12 07/21/25 13:01 07/21/25 13:01 07/21/25 13:00 07/21/25 12:54 07/21/25 12:51 07/21/25 12:51 07/21/25 12:39 07/21/25 12:21 07/21/25 12:15 07/21/25 12:15 07/21/25 12:12 07/21/25 12:11 07/21/25 12:03 07/21/25 12:00 07/21/25 12:00 07/21/25 11:46 Room Air 07/21/25 11:45 Room Air 07/21/25 11:36 Room Air 07/21/25 10:37 Room Air 07/21/25 10:15 Room Air 07/21/25 10:12 Room Air 07/21/25 10:04 Room Air PG Care Time/CCT Total # of Minutes Spent Total Time Spent with Patient: Total time spent is greater than 50% in coordination of care (as documented) at patient's floor/unit and/or counseling patient: Coding Level of Care Code 25705 INT INP/OBS CARE MIN Diagnoses GIB (gastrointestinal bleeding) K92.2 GI bleed type/associated pathology: unspecified gastrointestinal hemorrhage type Brain TIA G45.9 Acute blood loss anemia D62 (1) GIB (gastrointestinal bleeding) GI bleed type/associated pathology: unspecified gastrointestinal hemorrhage type Qualified Code(s): K92.2 - Gastrointestinal hemorrhage, unspecified
[2025-07-21] MEDS ORDERED: GLUCOSE 10 TAB/TUBE PO PRN (15:41)
[2025-07-21] MEDS ORDERED: GLUCAGON FOR INJ 1 MG VIAL SQ PRN (15:41)
[2025-07-21] MEDS ORDERED: DEXTROSE 50% 50 ML SYRINGE IV PRN (15:41)
[2025-07-21] MEDS ORDERED: CARBOHYDRATES FOR HYPOGLYCEMIA PO PRN (15:41)
[2025-07-21] MEDS ORDERED: GLUCOSE 40% GEL 15 GM TUBE PO PRN (15:41)
[2025-07-21] MEDS ORDERED: SODIUM CHLORIDE 0.9% 100 ML IV PRN ×2 (15:45→19:54)
--- NOTE | 2025-07-21 16:06 | Magnetic Resonance Report ---
MRI BRAIN WITHOUT CONTRAST TECHNIQUE: An MRI examination of the brain was performed utilizing sagittal and axial T1-weighted images as well as axial T2-weighted, FLAIR, gradient echo and diffusion-weighted images. INDICATION: Weakness COMPARISON: Brain CT from the same day. FINDINGS: There is no evidence of intracranial mass lesion, hydrocephalus, infarct, extra-axial fluid collection, restricted diffusion or parenchymal hemorrhage. Age-related involutional changes of the brain and moderate chronic white matter ischemic changes. The cerebellar tonsils are normal in position. The pituitary gland is not enlarged. The major arterial vascular structures of the skull base are patent. No intraorbital soft tissue mass lesion is observed. The visualized paranasal sinuses are aerated. Small mastoid fluids. IMPRESSION: No acute intracranial processes identified. Chronic findings as above. Electronically signed by Sherif Cho 07-21-2025 4:06 PM
[2025-07-21] MEDS ORDERED: ACETAMINOPHEN 325 MG TAB PO PRN (17:56)
[2025-07-21] MEDS ORDERED: ONDANSETRON INJ 2 MG/ML 2 ML VIAL IV PRN (17:56)
[2025-07-21] MEDS ORDERED: NON-FORMULARY MEDICATION (Fluticasone-Umeclidin-Vilanter [Trelegy Ellipta] 200-62.5-25 mcg INH SCH (17:56)
[2025-07-21] MEDS ORDERED: ALBUT/IPRATROP 3MG/0.5MG NEB 3 ML VIAL INH PRN (17:56)
[2025-07-21] MEDS ORDERED: NITROGLYCERIN SL 0.4 MG/TAB TAB SL PRN (17:56)
[2025-07-21 18:17] LABS: Hematocrit (blood only) 21.5 % (42.0-52.0); Hemoglobin 7.1 g/dl (14.0-18.0)
[2025-07-21 18:47] LABS: Iron 242 mcg/dl (35-175); Total Iron Binding Cap Calc 259 mcg/dl (250-450); Transferrin 185 mg/dl (200-360); Transferrin (FE) Percent Satur 93 % (20-50)
[2025-07-21] MEDS: INSULIN ASPART PER UNIT CHARGE SC SCH (20:45)
[2025-07-21] MEDS: GABAPENTIN 300 MG CAP PO SCH (21:06)
[2025-07-21] MEDS: PANTOprazole 40 MG/10 ML SYR IV SCH (21:06)
[2025-07-21] MEDS: RANOLAZINE 500 MG ER TAB PO SCH (21:06)
--- NOTE | 2025-07-21 21:38 | Electrocardiogram Report ---
Test Reason : Blood Pressure : */* mmHG Vent. Rate : 82 BPM Atrial Rate : * BPM P-R Int : * ms QRS Dur : 122 ms QT Int : 418 ms P-R-T Axes : * -15 -23 degrees QTcB Int : 488 ms Atrial fibrillation with premature ventricular or aberrantly conducted complexes Right bundle branch block Possible Inferior infarct , age undetermined Abnormal ECG When compared with ECG of 02-Jul-2025 01:49, No significant change Confirmed by Tashi Rick ([id number]) on 07/21/2025 9:37:33 PM Referred By: REFERRED SELF Confirmed By: Tashi Rick
[2025-07-22] MEDS: MELATONIN 3 MG TAB PO PRN (01:32)
[2025-07-22 01:43] LABS: Hematocrit (blood only) 20.4 % (42.0-52.0); Hemoglobin 6.7 g/dl (14.0-18.0)
[2025-07-22] MEDS ORDERED: SODIUM CHLORIDE 0.9% 100 ML IV PRN (01:47)
[2025-07-22 07:56] LABS: Hematocrit (blood only) 24.4 % (42.0-52.0); Hemoglobin 8.0 g/dl (14.0-18.0); Mean Corpuscular Hemoglobin 32.1 pg (25.0-34.0); Mean Corpuscular Volume 98.0 fL (80.0-100.0); Platelet Count 227 K/uL (130-400); RDW Standard Deviation 79.4 fL (36.4-46.3); Red Blood Count 2.49 M/uL (4.70-6.10); White Blood Count 5.28 K/ul (4.8-10.8)
[2025-07-22] MEDS: ROSUVASTATIN CALCIUM 20 MG TAB PO SCH (08:00)
[2025-07-22] MEDS: FERROUS SULFATE 325 MG TAB PO SCH (08:00)
[2025-07-22] MEDS: TAMSULOSIN HCL 0.4 MG CAP PO SCH (08:00)
[2025-07-22] MEDS: FLUTICASONE FUROATE 200MCG 14 PUFFS/INHALER INH SCH (08:01)
[2025-07-22] MEDS: UMECLIDINIUM/VILANTEROL 62.5/25MCG 7 PUFFS/INHALER INH SCH (08:01)
[2025-07-22 08:12] LABS: Anion Gap 6.0 (3-11); Blood Urea Nitrogen 48.0 mg/dl (6-23); Calcium 7.9 mg/dl (8.6-10.3); Carbon Dioxide 22.0 mmol/L (21-32); Chloride 109.0 mmol/L (98-107); Cholesterol 67.0 mg/dl (0-200); Creatinine Clr Calc Pharmacy 41.5 ml/min; Glucose 151.0 mg/dl (70-99(Fasting)); HDL Cholesterol 25.0 mg/dl; Magnesium 2.6 mg/dl (1.7-2.4); Potassium 4.2 mmol/L (3.5-5.1); Sodium 137.0 mmol/L (136-145); Triglycerides 98.0 mg/dl (0-150)
[2025-07-22 08:22] LABS: Hemoglobin A1C 6.4 % (4.5-5.6)
--- NOTE | 2025-07-22 09:53 | Hospitalist Progress Note ---
Date of Service July 22, 2025 Assessment & Plan (1) GIB (gastrointestinal bleeding): (2) Brain TIA: (3) Acute blood loss anemia: Plan 80 yr old M with PMHx of CKD III, AFib on Xarelto (resumed around 07/08/25), COPD, DM II, Obstructive CAD, HFpEF, portal gastropathy, h/o leukemia s/p bone marrow transplant, B12 deficiency, recent admission to [facility] 07/03 - 07/05/25 (eval and management of UGIB) now returns for the evaluation of worsening weakness. #Acute blood loss anemia - admit to inpt with tele - pt had EGD / C-scope last admission showing duodenitis, polps, and AVMs s/p APC - he has not had capsule endoscopy yet - hold rivaroxaban - IV Protonix 40mg BID - GI plans for EGD tomorrow - monitor Hgb, transfuse PRN (blood consent completed and given to bedside RN) - iron studies / b12 reviewed #Facial drooping - currently no symptoms - CT head showing no acute intracranial abnormality, mild to mod volume loss and chronic microvascular ischemic changes - CTA head / neck showing severe stenosis of both vertebral artery origins, mod stenosis of proximal right internal artery and mild stenosis of left internal carotid artery - MRI brain neg - on rosuvastatin 5mg, increase to 20mg - a1c and lipid panel reviewed - vascular surgery recs appreciated - no immediate surgical plan , outpatient eval to discuss further options #Weakness - due to anemia - will request PT / OT eval #AFib - CHADS2 Vasc: at lease 5 (age: +2, HF, HTN, DM II) - currently rate controlled - high risk for stroke - cont diltiazem for now - per discussion with cardiology (not a formal consult, did not request cardiology to review chart, just discussion on anticoagulation) - when cleared by GI recs switching to standard dose eliquis as bleed risk lower than xarelto. eventually eval for watchman procedure #Lung mass - CTA showing 2cm spiculated FROILAN and 4.2cm RUL mass like opacities seen - pt reports he is aware of this and is being monitored as outpatient #COPD - cont trelegy #CKD III - baseline Cr 1.7 - 1.9 - monitor #HFpEF - hold lasix at this time #CAD - cont ranolazine #DM II - A1c: 6.4 - hold ozempic - sliding scale #Elevated troponin - actually trending down even compared to prior #DVT ppx: SCDs - pt does have IVC filter still in place #Code status: Full code #Dispo- pending EGD Admission and Anticipated Discharge Date Admission Date: July 21, 2025 Subjective Currently no new complaints Received 2 units PRBC ON States he feels much better Review of Systems Review of Systems: Comprehensive ROS completed and is otherwise negative. Physical Exam Physical Exam: Gen: no acute distress, lying in bed comfortable Skin: significant pallor HEENT: NC/AT, MMM, pallor Lungs: nonlabored breathing, CTAB CVS: s1s2nl, irregular Abd: nl bowel sounds, soft, NT / ND : no pineda Ext: no edema Neuro: AAOx3, overall benign exam, upper / lower extremity strength and sensation intact, CN II-XII grossly intact Psych: calm, cooperative Results & Data Results & Data Vital Signs (Past 12 Hours) Vital Signs Temp Pulse Pulse Resp BP BP Pulse Ox 07/22/25 08:00 07/22/25 07:24 36.7 C 66 16 115/60 97 07/22/25 06:06 36.5 C 85 18 105/74 97 07/22/25 05:56 36.4 C L 60 18 107/51 L 97 07/22/25 04:56 36.4 C L 95 H 18 103/55 L 96 07/22/25 03:56 36.7 C 86 18 101/61 96 07/22/25 03:26 36.6 C 93 H 18 101/62 96 07/22/25 03:11 36.6 C 87 18 101/58 L 94 07/22/25 02:53 36.5 C 93 H 18 100/64 94 07/22/25 02:35 36.4 C L 87 16 104/64 97 07/22/25 00:00 84 07/21/25 23:59 36.6 C 93 H 18 90/47 L 96 07/21/25 23:00 36.6 C 93 H 18 111/45 L 97 07/21/25 22:12 36.4 C L 92 H 16 102/60 93 07/21/25 22:00 36.4 C L 92 H 16 102/60 93 O2 Del Method O2 Flow Rate 07/22/25 08:00 Room Air 07/22/25 07:24 Room Air 07/22/25 06:06 07/22/25 05:56 07/22/25 04:56 07/22/25 03:56 07/22/25 03:26 07/22/25 03:11 07/22/25 02:53 07/22/25 02:35 Room Air 07/22/25 00:00 07/21/25 23:59 07/21/25 23:00 0 07/21/25 22:12 Room Air 07/21/25 22:00 0 PG Care Time/CCT Total # of Minutes Spent Total Time Spent with Patient: Total time spent is greater than 50% in coordination of care (as documented) at patient's floor/unit and/or counseling patient: Coding Level of Care Code 47611 SUB INP/OBS CARE 3/50MIN Diagnoses GIB (gastrointestinal bleeding) K92.2 GI bleed type/associated pathology: unspecified gastrointestinal hemorrhage type Brain TIA G45.9 Acute blood loss anemia D62 (1) GIB (gastrointestinal bleeding) GI bleed type/associated pathology: unspecified gastrointestinal hemorrhage type Qualified Code(s): K92.2 - Gastrointestinal hemorrhage, unspecified
--- NOTE | 2025-07-22 09:56 | Gastrointestinal Consultation ---
Date of Consultation July 22, 2025 Assessment & Plan (1) GIB (gastrointestinal bleeding): 80 year old male with history of COPD, CKD 3, CAD, T2DM, GERD Afib on Xarelto, AML s/p Stem Cell transplant 2011 admitted through the ED w/ symptomatic anemia, weakness and report of black stools. 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 He reports ongoing black stools (prescribed iron), and anemia requiring RBC transfusion. Xarleto held Continue diet today Plan for NPO aftermidnight EGD 07/23/25 Trend H&H Monitor and document GI output Transfuse PRN per primary team Continue IV Pantoprazole twice daily Will need to be referred to [facility] [place] I spent a total of 60 minutes on the date of service in review of patient's record, and previously obtained information in person and appropriate medical visit, discussion and education of plan, with patient and/or caregiver, placing orders for tests/referral/procedures as medically necessary and documentation of pertinent clinical information in patient's medical records for their visit today. Supervising Physician Co-Signing Physician Notes Continued signs and symptoms of gastrointestinal bleeding. Bleeding described as black and tarry in nature suggestive and consistent with melena. This would be less likely colonic bleeding source. Reviewed endoscopy potential AVMs of the ascending colon treated. Some colon polyps. At this point I think it be worthwhile repeating EGD. If negative for source for melena could consider video capsule endoscopy. Reviewed with Mr. Floyd he is agreeable to proceed do so tomorrow History of Present Illness Reason for Consultation: acute blood loss anemia Requesting Physician: Fouzia Graves MD Attending Physician: Fouzia Graves MD History of Present Illness 80 year old male with history of COPD, CKD 3, CAD, T2DM, GERD Afib on Xarelto, AML s/p Stem Cell transplant 2011 admitted through the ED w/ symptomatic anemia, weakness and report of black stools. 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 Reports black stools intermittent since discharge, last occurred Tuesday. No abd pain, nausea/vomiting. No fever, chills, CP, SOB. HGB 8 PLT 227 INR 1.3 EGD 2024: - Z-line irregular, 40 cm from the incisors. - Small hiatal hernia. - Normal stomach. Biopsied. - Erythematous duodenopathy. Biopsied. - Non-bleeding duodenal diverticulum. - The examination was otherwise normal. Colonoscopy 2024: Internal hemorrhoids. - Diverticulosis in the entire examined colon. - A few colonic angioectasias. Treated with argon plasma coagulation (APC). - One small (4-6 mm) polyp in the cecum, removed with a cold snare. Resected and retrieved. - Two small (4-6 mm) polyps in the ascending colon, removed with a cold snare. Resected and retrieved. - Two 10 to 12 mm polyps in the ascending colon, removed with a hot snare. Resected and retrieved. Clips were placed. - Three small (4-6 mm) polyps in the descending colon, removed with a cold snare. Resected and retrieved. - Many polyps in the sigmoid colon. Resection not attempted. - Melanosis in the colon. Colonoscopy 2022: - Melanosis in the colon. - Diverticulosis in the sigmoid colon and in the descending colon. - Multiple small polyps in the transverse colon, in the ascending colon and in the cecum. Resection not attempted. - No specimens collected. EGD 2022: - Normal esophagus. - Portal hypertensive gastropathy. Unaware the patient has liver disease so this might not be the case. Could be bleeding cause but may need to have colonoscopy later on or as an outpatient. - Normal examined duodenum. - No specimens collected. Allergies Allergy/AdvReac Type Severity Reaction Status Date / Time nitrofurantoin Allergy Severe SHORT OF Verified 07/03/25 13:49 [From Macrobid] BREATH, DIZZY, LIGHTHEADED, NAUSEA/VOMITING Home Medications Medication Instructions Recorded Confirmed Type fluticasone fur. 200 mcg-umeclid 1 inh inhalation QAM 07/01/23 07/21/25 History 62.5 mcg-vilant 25 mcg inhalat.powder (Trelegy Ellipta) ipratropium 0.5 mg-albuterol 3 mg 3 ml inhalation Q6H PRN Shortness 07/01/23 07/21/25 History (2.5 mg base)/3 mL nebulization Of Breath soln magnesium oxide 400 mg (241.3 mg 0 mg PO BID 07/01/23 07/21/25 History magnesium) tablet ranolazine 500 mg tablet,extended 500 mg PO BID 07/01/23 07/21/25 History release,12 hr rivaroxaban 15 mg tablet (Xarelto) 15 mg PO HS 07/01/23 07/21/25 History rosuvastatin 5 mg tablet 5 mg PO QAM 07/01/23 07/21/25 History diltiazem HCl 240 mg 0 mg PO QAM 08/17/23 07/21/25 History capsule,extended release 24 hr furosemide 20 mg tablet 20 - 40 mg PO UD 08/17/23 07/21/25 History fluticasone propionate 50 1 spray intranasal DAILY PRN 07/01/25 07/21/25 History mcg/actuation nasal Congestion spray,suspension gabapentin 300 mg capsule 300 mg PO HS 07/01/25 07/21/25 History loratadine 10 mg tablet (Claritin) 10 mg PO DAILY PRN Congestion 07/01/25 07/21/25 History neomycin-bacitracn Zn-polymyxin 1 applic topical BID PRN APPLY TO 07/01/25 07/21/25 History 3.5 mg-500 unit-10,000 unit top EAR NEEDED oint semaglutide 1 mg/dose (4 mg/3 mL) 1 mg subcut WK 07/01/25 07/21/25 History subcutaneous pen injector (Ozempic) tamsulosin 0.4 mg capsule 0.4 mg PO DAILY 07/01/25 07/21/25 History cyanocobalamin (vitamin B-12) 1,000 mcg PO DAILY #30 caps 07/05/25 07/21/25 Rx 1,000 mcg capsule ferrous sulfate 325 mg (65 mg 325 mg PO DAILY 07/21/25 07/21/25 History iron) tablet,delayed release Patient History Medical History Neuropathy Hx of fracture of nose multiple times in the past (years ago) Sleep apnea cpap Chronic obstructive pulmonary disease GI bleed 06/2023, recently hospitalized at [facility] for 5 days; found to have diverticulitis Non-ST elevation AK (NSTEMI) pt denies Surgical History History of total right knee replacement History of total left knee replacement Hx of umbilical hernia repair done w/cholecystectomy Hx of cholecystectomy Hx of colonoscopy History of cardiac cath ~10-12 years, failed stress test, [facility], no stents; f/u [facility] jiménez 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, [facility] [place] History of esophagogastroduodenoscopy (EGD) Social History Smoking Status: Former smoker Tobacco Type: Cigarettes Second Hand Exposure: No; Do You Dip or Chew Tobacco: No; Hx Alcohol Use: No Hx Substance Use: No Preferred Language: Irish Communication Ability: Effective Consulting Psychiatrist Required: No Beliefs That Will Affect Care: None Current Living Situation: Alone Feels Safe at Home: Yes Assistive Devices: Walker Review of Systems Review of Systems: All other findings negative except as noted in HPI. Physical Exam Constitutional: WD/WN, vitals as above Respiratory: normal respiratory effort, lungs clear to auscultation Gastrointestinal (Abdomen): normal bowel sounds, soft, nontender, no hepatosplenomegaly Skin: no rashes, warm and dry Results & Data Vital Signs (Past 12 Hours) Vital Signs Temp Pulse Pulse Resp BP BP Pulse Ox 07/22/25 08:00 07/22/25 07:24 98.1 F 66 16 115/60 97 07/22/25 06:06 97.7 F 85 18 105/74 97 07/22/25 05:56 97.5 F L 60 18 107/51 L 97 07/22/25 04:56 97.5 F L 95 H 18 103/55 L 96 07/22/25 03:56 98.1 F 86 18 101/61 96 07/22/25 03:26 97.9 F 93 H 18 101/62 96 07/22/25 03:11 97.9 F 87 18 101/58 L 94 07/22/25 02:53 97.7 F 93 H 18 100/64 94 07/22/25 02:35 97.5 F L 87 16 104/64 97 07/22/25 00:00 84 07/21/25 23:59 97.9 F 93 H 18 90/47 L 96 07/21/25 23:00 97.9 F 93 H 18 111/45 L 97 07/21/25 22:12 97.5 F L 92 H 16 102/60 93 07/21/25 22:00 97.5 F L 92 H 16 102/60 93 O2 Del Method O2 Flow Rate 07/22/25 08:00 Room Air 07/22/25 07:24 Room Air 07/22/25 06:06 07/22/25 05:56 07/22/25 04:56 07/22/25 03:56 07/22/25 03:26 07/22/25 03:11 07/22/25 02:53 07/22/25 02:35 Room Air 07/22/25 00:00 07/21/25 23:59 07/21/25 23:00 0 07/21/25 22:12 Room Air 07/21/25 22:00 0 Laboratory Results 07/22/25 07/22/25 07/22/25 Range/Units 07:49 07:02 01:15 WBC 5.28 (4.8-10.8) K/ul RBC 2.49 L (4.70-6.10) M/uL Hgb 8.0 L 6.7 L* (14.0-18.0) g/dl POC Hgb (14.0-18.0) g/dl Hct 24.4 L 20.4 L* (42.0-52.0) % POC Hct (42-52) % MCV 98.0 D (80.0-100.0) fL MCH 32.1 (25.0-34.0) pg MCHC 32.8 (32.0-36.0) g/dL RDW Std Deviation 79.4 H (36.4-46.3) fL RDW Coeff of Rosalva 22.8 H (11.5-14.5) % Plt Count 227 (130-400) K/uL MPV 10.2 (9.4-12.4) fL Immature Gran % (Auto) % Neut % (Auto) % Lymph % (Auto) % Rosebud % (Auto) % Eos % (Auto) % Baso % (Auto) % Neut # (Auto) (1.40-6.50) K/uL Lymph # (Auto) (1.20-3.40) K/uL Rosebud # (Auto) (0.11-0.59) K/uL Eos # (Auto) (0.00-0.50) K/uL Baso # (Auto) (0.00-0.20) K/uL Immature Gran # (Auto) (0.01-0.20) K/uL Absolute Nucleated RBC 0.03 (0.00-0.12) K/uL Nucleated RBC % (auto) 0.6 % Polychromasia Basophilic Stippling Anisocytosis PT (9.0-12.0) Seconds INR (0.9-1.1) APTT (21-31) Seconds PTT Ratio POC Sodium (135-144) mmol/L Sodium 137 (136-145) mmol/L POC Potassium (3.3-5.0) mmol/L Potassium 4.2 (3.5-5.1) mmol/L POC Chloride (101-112) mmol/L Chloride 109 H (98-107) mmol/L Carbon Dioxide 22 (21-32) mmol/L POC Total CO2 (24-31) mmol/L Anion Gap 6 (3-11) POC Anion Gap (16-25) mmol/L POC BUN (7-18) mg/dl BUN 48 H (6-23) mg/dl Creatinine 1.64 H (0.6-1.4) mg/dl POC Creatinine (0.6-1.3) mg/dl Est Cr Clr Drug Dosing 41.5 ml/min eGFR 41.50 BUN/Creatinine Ratio 29.3 H (10-20) Glucose 151 H (70-99(Fasting)) mg/dl POC Glucose 163 H (70-99) mg/dl POC Glucose (other) (70-99) mg/dl Estimat Average Glucose 137 mg/dl Hemoglobin A1c 6.4 H (4.5-5.6) % Calcium 7.9 L (8.6-10.3) mg/dl POC Ioniz Calcium Parth (1.12-1.32) mmol/l Phosphorus 3.2 (2.5-4.9) mg/dl Magnesium 2.6 H (1.7-2.4) mg/dl Iron (35-175) mcg/dl TIBC (250-450) mcg/dl Transferrin (200-360) mg/dl Transferrin % Sat (20-50) % Total Bilirubin (0.2-1.0) mg/dl AST (13-39) U/L ALT (7-52) U/L Alkaline Phosphatase (34-104) U/L Troponin I High Sens (0-20) pg/ml Total Protein (6.0-8.3) gm/dl Albumin (3.4-5.0) gm/dl Globulin (2.5-4.0) gm/dl Albumin/Globulin Ratio (0.9-2) Triglycerides 98 (0-150) mg/dl Cholesterol 67 (0-200) mg/dl LDL Cholesterol, Calc 22 mg/dl VLDL Cholesterol, Calc 20 (0-30) mg/dl HDL Cholesterol 25 mg/dl Cholesterol/HDL Ratio 2.7 (0-5) Vitamin B12 (180-914) pg/ml Blood Type Antibody Screen Crossmatch 07/21/25 07/21/25 07/21/25 Range/Units 20:15 18:02 11:59 WBC (4.8-10.8) K/ul RBC (4.70-6.10) M/uL Hgb 7.1 L (14.0-18.0) g/dl POC Hgb (14.0-18.0) g/dl Hct 21.5 L (42.0-52.0) % POC Hct (42-52) % MCV (80.0-100.0) fL MCH (25.0-34.0) pg MCHC (32.0-36.0) g/dL RDW Std Deviation (36.4-46.3) fL RDW Coeff of Rosalva (11.5-14.5) % Plt Count (130-400) K/uL MPV (9.4-12.4) fL Immature Gran % (Auto) % Neut % (Auto) % Lymph % (Auto) % Rosebud % (Auto) % Eos % (Auto) % Baso % (Auto) % Neut # (Auto) (1.40-6.50) K/uL Lymph # (Auto) (1.20-3.40) K/uL Rosebud # (Auto) (0.11-0.59) K/uL Eos # (Auto) (0.00-0.50) K/uL Baso # (Auto) (0.00-0.20) K/uL Immature Gran # (Auto) (0.01-0.20) K/uL Absolute Nucleated RBC (0.00-0.12) K/uL Nucleated RBC % (auto) % Polychromasia Basophilic Stippling Anisocytosis PT (9.0-12.0) Seconds INR (0.9-1.1) APTT (21-31) Seconds PTT Ratio POC Sodium (135-144) mmol/L Sodium (136-145) mmol/L POC Potassium (3.3-5.0) mmol/L Potassium (3.5-5.1) mmol/L POC Chloride (101-112) mmol/L Chloride (98-107) mmol/L Carbon Dioxide (21-32) mmol/L POC Total CO2 (24-31) mmol/L Anion Gap (3-11) POC Anion Gap (16-25) mmol/L POC BUN (7-18) mg/dl BUN (6-23) mg/dl Creatinine (0.6-1.4) mg/dl POC Creatinine (0.6-1.3) mg/dl Est Cr Clr Drug Dosing ml/min eGFR BUN/Creatinine Ratio (10-20) Glucose (70-99(Fasting)) mg/dl POC Glucose 226 H (70-99) mg/dl POC Glucose (other) (70-99) mg/dl Estimat Average Glucose mg/dl Hemoglobin A1c (4.5-5.6) % Calcium (8.6-10.3) mg/dl POC Ioniz Calcium Parth (1.12-1.32) mmol/l Phosphorus (2.5-4.9) mg/dl Magnesium (1.7-2.4) mg/dl Iron 242 H (35-175) mcg/dl TIBC 259 (250-450) mcg/dl Transferrin 185 L (200-360) mg/dl Transferrin % Sat 93 H (20-50) % Total Bilirubin (0.2-1.0) mg/dl AST (13-39) U/L ALT (7-52) U/L Alkaline Phosphatase (34-104) U/L Troponin I High Sens 183.9 H* (0-20) pg/ml Total Protein (6.0-8.3) gm/dl Albumin (3.4-5.0) gm/dl Globulin (2.5-4.0) gm/dl Albumin/Globulin Ratio (0.9-2) Triglycerides (0-150) mg/dl Cholesterol (0-200) mg/dl LDL Cholesterol, Calc mg/dl VLDL Cholesterol, Calc (0-30) mg/dl HDL Cholesterol mg/dl Cholesterol/HDL Ratio (0-5) Vitamin B12 438 (180-914) pg/ml Blood Type Antibody Screen Crossmatch 07/21/25 07/21/25 Range/Units 10:15 10:10 WBC 6.72 (4.8-10.8) K/ul RBC 2.15 L (4.70-6.10) M/uL Hgb 7.3 L (14.0-18.0) g/dl POC Hgb 6.8 L* (14.0-18.0) g/dl Hct 22.8 L (42.0-52.0) % POC Hct 20 L* (42-52) % MCV 106.0 H (80.0-100.0) fL MCH 34.0 (25.0-34.0) pg MCHC 32.0 (32.0-36.0) g/dL RDW Std Deviation 72.4 H (36.4-46.3) fL RDW Coeff of Rosalva 19.0 H (11.5-14.5) % Plt Count 316 (130-400) K/uL MPV 10.3 (9.4-12.4) fL Immature Gran % (Auto) 0.3 % Neut % (Auto) 58.6 % Lymph % (Auto) 32.4 % Rosebud % (Auto) 6.5 % Eos % (Auto) 1.5 % Baso % (Auto) 0.7 % Neut # (Auto) 3.93 (1.40-6.50) K/uL Lymph # (Auto) 2.18 (1.20-3.40) K/uL Rosebud # (Auto) 0.44 (0.11-0.59) K/uL Eos # (Auto) 0.10 (0.00-0.50) K/uL Baso # (Auto) 0.05 (0.00-0.20) K/uL Immature Gran # (Auto) 0.02 (0.01-0.20) K/uL Absolute Nucleated RBC 0.02 (0.00-0.12) K/uL Nucleated RBC % (auto) 0.3 % Polychromasia 2+ Basophilic Stippling 1+ Anisocytosis Present PT 13.8 H (9.0-12.0) Seconds INR 1.3 H (0.9-1.1) APTT 27 (21-31) Seconds PTT Ratio 1.0 POC Sodium 138 (135-144) mmol/L Sodium 137 (136-145) mmol/L POC Potassium 4.7 (3.3-5.0) mmol/L Potassium 4.5 (3.5-5.1) mmol/L POC Chloride 107 (101-112) mmol/L Chloride 106 (98-107) mmol/L Carbon Dioxide 24 (21-32) mmol/L POC Total CO2 23 L (24-31) mmol/L Anion Gap 7 (3-11) POC Anion Gap 14.0 L (16-25) mmol/L POC BUN 60 H (7-18) mg/dl BUN 63 H (6-23) mg/dl Creatinine 1.79 H (0.6-1.4) mg/dl POC Creatinine 1.9 H (0.6-1.3) mg/dl Est Cr Clr Drug Dosing 38.4 ml/min eGFR 37.37 BUN/Creatinine Ratio 35.2 H (10-20) Glucose 240 H (70-99(Fasting)) mg/dl POC Glucose (70-99) mg/dl POC Glucose (other) 230 H (70-99) mg/dl Estimat Average Glucose mg/dl Hemoglobin A1c (4.5-5.6) % Calcium 9.2 (8.6-10.3) mg/dl POC Ioniz Calcium Parth 1.21 (1.12-1.32) mmol/l Phosphorus (2.5-4.9) mg/dl Magnesium 3.6 H (1.7-2.4) mg/dl Iron (35-175) mcg/dl TIBC (250-450) mcg/dl Transferrin (200-360) mg/dl Transferrin % Sat (20-50) % Total Bilirubin 0.7 (0.2-1.0) mg/dl AST 12 L (13-39) U/L ALT 8 (7-52) U/L Alkaline Phosphatase 48 (34-104) U/L Troponin I High Sens 202.9 H* (0-20) pg/ml Total Protein 6.7 (6.0-8.3) gm/dl Albumin 3.3 L (3.4-5.0) gm/dl Globulin 3.4 (2.5-4.0) gm/dl Albumin/Globulin Ratio 1.0 (0.9-2) Triglycerides (0-150) mg/dl Cholesterol (0-200) mg/dl LDL Cholesterol, Calc mg/dl VLDL Cholesterol, Calc (0-30) mg/dl HDL Cholesterol mg/dl Cholesterol/HDL Ratio (0-5) Vitamin B12 (180-914) pg/ml Blood Type O Positive Antibody Screen NEGATIVE Crossmatch See Detail PG Care Time/CCT Total # of Minutes Spent Total Time Spent with Patient: Total time spent is greater than 50% in coordination of care (as documented) at patient's floor/unit and/or counseling patient: Coding Level of Care Code 36294 INT INP/OBS CARE MIN Diagnoses GIB (gastrointestinal bleeding) K92.2 GI bleed type/associated pathology: unspecified gastrointestinal hemorrhage type (1) GIB (gastrointestinal bleeding) GI bleed type/associated pathology: unspecified gastrointestinal hemorrhage type Qualified Code(s): K92.2 - Gastrointestinal hemorrhage, unspecified
[2025-07-22] MEDS: POLYETHYLENE (MIRALAX) 17 GM PACK PO PRN (10:18)
--- NOTE | 2025-07-22 11:34 | Vascular Surgery Consultation ---
Date of Consultation July 22, 2025 Assessment & Plan (1) Carotid stenosis, right: incidentally found after imaging done to rule out stroke due to concern for facial drooping agree with increasing rosuvastatin no immediate need for surgery, but will plan to follow in house and will see him back as an outpatient to further discuss treatment options, once blood loss anemia resolved. Thank you for allowing us to participate in the care of Mr. Cowart. History of Present Illness Reason for Consultation: right internal carotid artery stenosis Requesting Physician: Dr. Fouzia Graves Attending Physician: Fouzia Graves MD History of Present Illness Mr. Cowart is an 80 year old male who was admitted with worsening weakness and black stools, who we are being consulted for due to findings of asymptomatic right carotid artery stenosis. History was obtained from patient, as well as his medical records. Mr. Cowart has a past medical history significant for UGIB (recently admitted 07/03-07/05), CKD stage III, afib (on Xarelto), COPD, DM type II, HFpEF, portal gastropathy, h/o leukemia s/p stem cell transplant, and spiculated lung nodule. He was recently in [facility] with UGIB from 07/03-07/05. During that admission he underwent EGD and colonoscopy which showed duodenitis, polyps and AVMs, s/p APC in the colon. Prior to this admission he noted that he had been having several days of black stools, which he thought was due to his iron supplements, however he then started to feel progressively weak as well, becoming so profound he called EMS. In the ED there was concern for facial drooping, which prompted stroke work up as well, with no acute findings noted on further imaging, however did note severe stenosis of the origins of both vertebral arteries as well as approximately 60% stenosis of BRIAN and mild stenosis of the LICA. Lab work was notable for anemia with H/H 6.8/20. He was admitted for his acute blood loss anemia and his Xarelto has been held. In regards to his carotid stenosis, his rosuvastatin was increased to 20mg this admission. Brain MRI with no acute process. He states he did not know he had any blockages in his neck but is somewhat aware of what it means, as his late had both carotids cleaned out in the past. He denies any weakness in one arm or one leg, and otherwise gets around ok at home, where he lives alone. He is right handed. He is a former smoker. He does have neuropathy in his feet. Allergies Allergy/AdvReac Type Severity Reaction Status Date / Time nitrofurantoin Allergy Severe SHORT OF Verified 07/03/25 13:49 [From Macrobid] BREATH, DIZZY, LIGHTHEADED, NAUSEA/VOMITING Home Medications Medication Instructions Recorded Confirmed Type fluticasone fur. 200 mcg-umeclid 1 inh inhalation QAM 07/01/23 07/21/25 History 62.5 mcg-vilant 25 mcg inhalat.powder (Trelegy Ellipta) ipratropium 0.5 mg-albuterol 3 mg 3 ml inhalation Q6H PRN Shortness 07/01/23 1 History (2.5 mg base)/3 mL nebulization Of Breath soln magnesium oxide 400 mg (241.3 mg 0 mg PO BID 07/01/23 07/21/25 History magnesium) tablet ranolazine 500 mg tablet,extended 500 mg PO BID 07/01/23 07/21/25 History release,12 hr rivaroxaban 15 mg tablet (Xarelto) 15 mg PO HS 07/01/23 07/21/25 History rosuvastatin 5 mg tablet 5 mg PO QAM 07/01/23 07/21/25 History diltiazem HCl 240 mg 0 mg PO QAM 08/17/23 07/21/25 History capsule,extended release 24 hr furosemide 20 mg tablet 20 - 40 mg PO UD 08/17/23 07/21/25 History fluticasone propionate 50 1 spray intranasal DAILY PRN 07/01/25 07/21/25 History mcg/actuation nasal Congestion spray,suspension gabapentin 300 mg capsule 300 mg PO HS 07/01/25 07/21/25 History loratadine 10 mg tablet (Claritin) 10 mg PO DAILY PRN Congestion 07/01/25 07/21/25 History neomycin-bacitracn Zn-polymyxin 1 applic topical BID PRN APPLY TO 07/01/25 07/21/25 History 3.5 mg-500 unit-10,000 unit top EAR NEEDED oint semaglutide 1 mg/dose (4 mg/3 mL) 1 mg subcut WK 07/01/25 07/21/25 History subcutaneous pen injector (Ozempic) tamsulosin 0.4 mg capsule 0.4 mg PO DAILY 07/01/25 07/21/25 History cyanocobalamin (vitamin B-12) 1,000 mcg PO DAILY #30 caps 07/05/25 07/21/25 Rx 1,000 mcg capsule ferrous sulfate 325 mg (65 mg 325 mg PO DAILY 07/21/25 07/21/25 History iron) tablet,delayed release Patient History Medical History Neuropathy Hx of fracture of nose multiple times in the past (years ago) Sleep apnea cpap Chronic obstructive pulmonary disease GI bleed 06/2023, recently hospitalized at [facility] for 5 days; found to have diverticulitis Non-ST elevation NM (NSTEMI) pt denies Surgical History History of total right knee replacement History of total left knee replacement Hx of umbilical hernia repair done w/cholecystectomy Hx of cholecystectomy Hx of colonoscopy History of cardiac cath ~10-12 years, failed stress test, critical access hospital, no stents; f/u fredrick jiménez 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, [facility] History of esophagogastroduodenoscopy (EGD) Social History Smoking Status: Former smoker Tobacco Type: Cigarettes Second Hand Exposure: No; Do You Dip or Chew Tobacco: No; Hx Alcohol Use: No Hx Substance Use: No Preferred Language: Malaysian Communication Ability: Effective Burglar Alarm Mechanic Required: No Beliefs That Will Affect Care: None Current Living Situation: Alone Feels Safe at Home: Yes Assistive Devices: None Review of Systems Review of Systems: See HPI for pertinent positive/negatives, otherwise 12 point ROS negative. Physical Exam Constitutional: well developed, well nourished, in no distress, lying in bed Eyes: PERRLA Respiratory: No increased respiratory effort, no accessory muscle use Cardiovascular: irregularly irregular +2 radial pulses +2 right DP, +1 left DP no edema Gastrointestinal (Abdomen): soft, no tenderness to palpation Musculoskeletal: moves all extremities equally Skin: warm and dry Neurologic: CN II-XII grossly intact, no focal defecits noted Results & Data Vital Signs (Past 12 Hours) Vital Signs Temp Pulse Pulse Resp BP BP Pulse Ox 07/22/25 08:00 07/22/25 07:24 36.7 C 66 16 115/60 97 07/22/25 06:06 36.5 C 85 18 105/74 97 07/22/25 05:56 36.4 C L 60 18 107/51 L 97 07/22/25 04:56 36.4 C L 95 H 18 103/55 L 96 07/22/25 03:56 36.7 C 86 18 101/61 96 07/22/25 03:26 36.6 C 93 H 18 101/62 96 07/22/25 03:11 36.6 C 87 18 101/58 L 94 07/22/25 02:53 36.5 C 93 H 18 100/64 94 07/22/25 02:35 36.4 C L 87 16 104/64 97 07/22/25 00:00 84 07/21/25 23:59 36.6 C 93 H 18 90/47 L 96 O2 Del Method 07/22/25 08:00 Room Air 07/22/25 07:24 Room Air 07/22/25 06:06 07/22/25 05:56 07/22/25 04:56 07/22/25 03:56 07/22/25 03:26 07/22/25 03:11 07/22/25 02:53 07/22/25 02:35 Room Air 07/22/25 00:00 07/21/25 23:59 Laboratory Results 07/22/25 07/22/25 07/22/25 07:49 07:02 01:15 WBC 5.28 RBC 2.49 L Hgb 8.0 L 6.7 L* Hct 24.4 L 20.4 L* MCV 98.0 D MCH 32.1 MCHC 32.8 RDW Std Deviation 79.4 H RDW Coeff of Rosalva 22.8 H Plt Count 227 MPV 10.2 Absolute Nucleated RBC 0.03 Nucleated RBC % (auto) 0.6 Sodium 137 Potassium 4.2 Chloride 109 H Carbon Dioxide 22 Anion Gap 6 BUN 48 H Creatinine 1.64 H Est Cr Clr Drug Dosing 41.5 eGFR 41.50 BUN/Creatinine Ratio 29.3 H Glucose 151 H POC Glucose 163 H Estimat Average Glucose 137 Hemoglobin A1c 6.4 H Calcium 7.9 L Phosphorus 3.2 Magnesium 2.6 H Iron TIBC Transferrin Transferrin % Sat Troponin I High Sens Triglycerides 98 Cholesterol 67 LDL Cholesterol, Calc 22 VLDL Cholesterol, Calc 20 HDL Cholesterol 25 Cholesterol/HDL Ratio 2.7 Vitamin B12 Blood Type Antibody Screen Crossmatch 07/21/25 07/21/25 07/21/25 20:15 18:02 11:59 WBC RBC Hgb 7.1 L Hct 21.5 L MCV MCH MCHC RDW Std Deviation RDW Coeff of Rosalva Plt Count MPV Absolute Nucleated RBC Nucleated RBC % (auto) Sodium Potassium Chloride Carbon Dioxide Anion Gap BUN Creatinine Est Cr Clr Drug Dosing eGFR BUN/Creatinine Ratio Glucose POC Glucose 226 H Estimat Average Glucose Hemoglobin A1c Calcium Phosphorus Magnesium Iron 242 H TIBC 259 Transferrin 185 L Transferrin % Sat 93 H Troponin I High Sens 183.9 H* Triglycerides Cholesterol LDL Cholesterol, Calc VLDL Cholesterol, Calc HDL Cholesterol Cholesterol/HDL Ratio Vitamin B12 438 Blood Type Antibody Screen Crossmatch 07/21/25 10:10 WBC RBC Hgb Hct MCV MCH MCHC RDW Std Deviation RDW Coeff of Rosalva Plt Count MPV Absolute Nucleated RBC Nucleated RBC % (auto) Sodium Potassium Chloride Carbon Dioxide Anion Gap BUN Creatinine Est Cr Clr Drug Dosing eGFR BUN/Creatinine Ratio Glucose POC Glucose Estimat Average Glucose Hemoglobin A1c Calcium Phosphorus Magnesium Iron TIBC Transferrin Transferrin % Sat Troponin I High Sens Triglycerides Cholesterol LDL Cholesterol, Calc VLDL Cholesterol, Calc HDL Cholesterol Cholesterol/HDL Ratio Vitamin B12 Blood Type O Positive Antibody Screen NEGATIVE Crossmatch See Detail Diagnostic Findings Neck CTA 07/21/25 10:05 HISTORY: Dizziness and lightheadedness TECHNIQUE: CT Angiography of the neck was performed following uneventful administration of with IV contrast. Images are presented in axial, sagittal, coronal reformats. Coronal and sagittal 3D MIP reconstructions are provided. COMPARISON: CT angiography of the head from the same day. FINDINGS: Angiography: Mild atherosclerotic vascular calcification involving the aorta and arch vessels. The common carotid arteries are patent. Atherosclerotic plaque at the right carotid bifurcation with 60% luminal narrowing of the proximal right internal carotid artery. Atherosclerotic plaque at the left carotid bifurcation with less than 50% stenosis of the proximal left internal carotid artery. Cervical internal carotid arteries are patent at the skull base. Severe stenosis at the origin of the right vertebral artery. Severe stenosis at the origin of the left vertebral artery. Right vertebral artery is slightly dominant. Cervical vertebral arteries are otherwise patent. Soft tissues: The soft tissues of the neck are unremarkable. Lung apices: Spiculated masslike density in the lateral right lung apex on series 1 image 7 is partially imaged Measuring at least 2.5 x 2.5 cm. Bones: No acute osseous abnormality. Mild to moderate degenerative changes of the cervical spine. IMPRESSION: * Spiculated masslike opacity in the right lung apex on series 1 image 7 is partially imaged and measures at least 2.5 x 2.5 cm. This raises the possibility of lung malignancy and requires further evaluation with contrast-enhanced CT of the chest. * Severe stenosis at both vertebral artery origins. Cervical vertebral arteries are otherwise patent. Right vertebral artery is slightly dominant. * Moderate stenosis of the proximal right internal carotid artery with luminal narrowing of approximately 60%. * Mild stenosis of the proximal left internal carotid artery with luminal narrowing of less than 50%. ACT 112: Positive. There are findings on this exam that require communication between the performing entity and the patient following Patient Test Result Information Act ([place] ACT 112) guidelines. Electronically signed by Ortiz Begum 07-21-2025 10:[address] 07/21/25 10:48 HISTORY: Lung mass TECHNIQUE: CT imaging of the chest was performed without IV contrast. Images are presented in axial, sagittal, and coronal reformats. COMPARISON: None. FINDINGS: Lungs: SpiculatedMasslike opacity in the peripheral right upper lobe on series3 image 17 measuring 4.3 x 2.4 x 3.3 cm suspicious for lung malignancy. mild atelectasis at the right lung base. Spiculated nodular density in the left upper lobe on series 3 image 30 measuring 2 cm. No pneumothorax or effusion. Central tracheobronchial tree is patent. Heart/Mediastinum: Mild cardiomegaly. Trace pericardial effusion. Coronary artery calcifications are present with severe multivessel disease. Severe aortic valvular and mitral annular calcification. Scattered subcentimeter short axis mediastinal and hilar lymph nodes are nonspecific. Thoracic esophagus is unremarkable. Included thyroid gland is unremarkable. Vasculature: No thoracic aortic aneurysm. Moderate atherosclerotic vascular disease of the aorta and arch vessels. Main pulmonary artery is normal in caliber. Soft Tissues: Unremarkable. Upper Abdomen: Gallbladder is surgically absent. Contrast in both renal collecting systems from a prior study. Colonic diverticulosis. Bones: Moderate degenerative changes of the spine. No acute osseous abnormality. IMPRESSION: * 4.2 cm spiculated masslike opacity in the lateral right upper lobe on series 3 image 17is suspicious for lung malignancy with differential also including pneumonia. 2 cm spiculated nodule in the left upper lobe on series 3 image 30. Further evaluation is recommended with PET/CT and/or biopsy. * Scattered nonspecific mediastinal and hilar lymph nodes measuring less than 1 cm in short axis. * Mild cardiomegaly. Severe coronary artery atherosclerotic vascular disease. Severe aortic valvular and mitral annular calcification. * Additional chronic and/or incidental findings as above. ACT 112: Positive. There are findings on this exam that require communication between the performing entity and the patient following Patient Test Result Information Act ([place] ACT 112) guidelines. Electronically signed by Ortiz Begum 07-21-2025 11:37 AM Brain MRI 07/21/25 14:35 MRI BRAIN WITHOUT CONTRAST TECHNIQUE: An MRI examination of the brain was performed utilizing sagittal and axial T1-weighted images as well as axial T2-weighted, FLAIR, gradient echo and diffusion-weighted images. INDICATION: Weakness COMPARISON: Brain CT from the same day. FINDINGS: There is no evidence of intracranial mass lesion, hydrocephalus, infarct, extra-axial fluid collection, restricted diffusion or parenchymal hemorrhage. Age-related involutional changes of the brain and moderate chronic white matter ischemic changes. The cerebellar tonsils are normal in position. The pituitary gland is not enlarged. The major arterial vascular structures of the skull base are patent. No intraorbital soft tissue mass lesion is observed. The visualized paranasal sinuses are aerated. Small mastoid fluids. IMPRESSION: No acute intracranial processes identified. Chronic findings as above. Electronically signed by Sherif Cho 07-21-2025 4:06 PM Medications Administered Home Medications Medication Instructions Recorded Confirmed Last Taken fluticasone fur. 200 mcg-umeclid 1 inh inhalation QAM 07/01/23 07/21/25 07/01/25 62.5 mcg-vilant 25 mcg inhalat.powder (Trelegy Ellipta) ipratropium 0.5 mg-albuterol 3 mg 3 ml inhalation Q6H PRN Shortness 07/01/23 07/21/25 08/24/23 (2.5 mg base)/3 mL nebulization Of Breath soln magnesium oxide 400 mg (241.3 mg 0 mg PO BID 07/01/23 07/21/25 07/01/25 magnesium) tablet ranolazine 500 mg tablet,extended 500 mg PO BID 07/01/23 07/21/25 07/01/25 release,12 hr rivaroxaban 15 mg tablet (Xarelto) 15 mg PO HS 07/01/23 07/21/25 07/01/25 rosuvastatin 5 mg tablet 5 mg PO QAM 07/01/23 07/21/25 07/01/25 diltiazem HCl 240 mg 0 mg PO QAM 08/17/23 07/21/25 07/01/25 capsule,extended release 24 hr furosemide 20 mg tablet 20 - 40 mg PO UD 08/17/23 07/21/25 07/01/25 40 MG fluticasone propionate 50 1 spray intranasal DAILY PRN 07/01/25 07/21/25 Unknown mcg/actuation nasal Congestion spray,suspension gabapentin 300 mg capsule 300 mg PO HS 07/01/25 07/21/25 07/01/25 loratadine 10 mg tablet (Claritin) 10 mg PO DAILY PRN Congestion 07/01/25 07/21/25 Unknown neomycin-bacitracn Zn-polymyxin 1 applic topical BID PRN APPLY TO 07/01/25 07/21/25 Unknown 3.5 mg-500 unit-10,000 unit top EAR NEEDED oint semaglutide 1 mg/dose (4 mg/3 mL) 1 mg subcut WK 07/01/25 07/21/25 06/30/25 subcutaneous pen injector (Ozempic) tamsulosin 0.4 mg capsule 0.4 mg PO DAILY 07/01/25 07/21/25 07/01/25 cyanocobalamin (vitamin B-12) 1,000 mcg PO DAILY #30 caps 07/05/25 07/21/25 U nknown 1,000 mcg capsule ferrous sulfate 325 mg (65 mg 325 mg PO DAILY 07/21/25 07/21/25 Unknown iron) tablet,delayed release Active Medications Generic Name Dose Route Start Last Admin Trade Name Freq PRN Reason Stop Dose Admin Diltiazem HCl 240 mg 07/22/25 09:00 07/22/25 08:00 Diltiazem Hcl 240 Mg Capcr PO 08/21/25 08:59 240 mg QAM TAYLOR Administration Ferrous Sulfate 325 mg 07/22/25 09:00 07/22/25 08:00 Ferrous Sulfate 325 Mg Tab PO 08/21/25 08:59 325 mg DAILY TAYLOR Administration Fluticasone Furoate 1 puffs 07/22/25 09:00 07/22/25 08:01 Fluticasone Furoate 200mcg 14 Puffs/Inhaler INH 08/21/25 08:59 1 puffs DAILY TAYLOR Administration Gabapentin 300 mg 07/21/25 21:00 07/21/25 21:06 Gabapentin 300 Mg Cap PO 08/20/25 20:59 300 mg HS TAYLOR Administration Pantoprazole Sodium 40 mg in 10 mls @ 5 mls/min 07/21/25 21:00 07/22/25 08:01 Protonix IV 08/20/25 20:59 5 mls/min BID TAYLOR Administration Insulin Aspart 0 units 07/21/25 16:30 07/22/25 08:52 Insulin Aspart Per Unit Charge SC 08/20/25 16:29 3 units ACHS TAYLOR Administration Melatonin 3 mg 07/22/25 01:27 07/22/25 01:32 Melatonin 3 Mg Tab PO 08/21/25 01:26 3 mg HS PRN Administration Sleep Polyethylene Glycol 17 gm 07/21/25 17:56 07/22/25 10:18 Polyethylene (Miralax) 17 Gm Pack PO 08/20/25 17:55 17 gm DAILY PRN Administration Constipation Ranolazine 500 mg 07/21/25 21:00 07/22/25 08:00 Ranolazine 500 Mg Er Tab PO 08/20/25 20:59 500 mg BID TAYLOR Administration Rosuvastatin Calcium 20 mg 07/22/25 09:00 07/22/25 08:00 Rosuvastatin Calcium 20 Mg Tab PO 08/21/25 08:59 20 mg QAM TAYLOR Administration Tamsulosin HCl 0.4 mg 07/22/25 09:00 07/22/25 08:00 Tamsulosin Hcl 0.4 Mg Cap PO 08/21/25 08:59 0.4 mg DAILY TAYLOR Administration Umeclidinium/Vilanterol 1 puffs 07/22/25 09:00 07/22/25 08:01 Umeclidinium/Vilanterol 62.5/25mcg 7 Puffs/Inhaler INH 08/21/25 08:59 1 puffs DAILY TAYLOR Administration PG Care Time/CCT Total # of Minutes Spent Total Time Spent with Patient: Total time spent is greater than 50% in coordination of care (as documented) at patient's floor/unit and/or counseling patient: [place] [address] INT INP/OBS CARE 2/55MIN Patient Type New History Expanded Problem Focused Exam Expanded Problem Focused Medical Decision Making Moderate Complexity Diagnoses Carotid stenosis, right I65.21
--- NOTE | 2025-07-22 15:24 | Electrocardiogram Report ---
Test Reason : Blood Pressure : */* mmHG Vent. Rate : 80 BPM Atrial Rate : * BPM P-R Int : * ms QRS Dur : 124 ms QT Int : 442 ms P-R-T Axes : * 20 -14 degrees QTcB Int : 509 ms Atrial fibrillation Right bundle branch block Abnormal ECG When compared with ECG of 21-Jul-2025 10:32, Criteria for Inferior infarct are no longer Present Confirmed by Og Lee ([id number]) on 07/22/2025 3:24:31 PM Referred By: REFERRED SELF Confirmed By: Og Lee
[2025-07-22 15:35] LABS: Hematocrit (blood only) 24.0 % (42.0-52.0); Hemoglobin 7.9 g/dl (14.0-18.0)
[2025-07-22] MEDS: MELATONIN 3 MG TAB PO STA (23:14)
[2025-07-23] MEDS ORDERED: Nursing to Pharmacy Communication SCH (01:45)
[2025-07-23] MEDS: INSULIN ASPART PER UNIT CHARGE SC SCH (05:48)
[2025-07-23 06:43] LABS: Hematocrit (blood only) 23.0 % (42.0-52.0); Hemoglobin 7.5 g/dl (14.0-18.0); Immature Granulocytes # (auto) 0.02 K/uL (0.01-0.20); Immature Granulocytes % (auto) 0.4 %; Mean Corpuscular Hemoglobin 31.9 pg (25.0-34.0); Mean Corpuscular Volume 97.9 fL (80.0-100.0); Platelet Count 212 K/uL (130-400); RDW Standard Deviation 79.7 fL (36.4-46.3); Red Blood Count 2.35 M/uL (4.70-6.10); White Blood Count 4.94 K/ul (4.8-10.8)
[2025-07-23 07:14] LABS: Anisocytosis Present
[2025-07-23 07:17] LABS: Anion Gap 7.0 (3-11); Blood Urea Nitrogen 41.0 mg/dl (6-23); Calcium 8.0 mg/dl (8.6-10.3); Carbon Dioxide 21.0 mmol/L (21-32); Chloride 110.0 mmol/L (98-107); Creatinine Clr Calc Pharmacy 39.3 ml/min; Glucose 160.0 mg/dl (70-99(Fasting)); Magnesium 2.4 mg/dl (1.7-2.4); Potassium 4.3 mmol/L (3.5-5.1); Sodium 138.0 mmol/L (136-145)
--- NOTE | 2025-07-23 09:34 | Gastroenterology Progress Note ---
Date of Service July 23, 2025 Assessment & Plan (1) GIB (gastrointestinal bleeding): Plan: 80 year old male with history of COPD, CKD 3, CAD, T2DM, GERD Afib on Xarelto, AML s/p Stem Cell transplant 2011 admitted through the ED w/ symptomatic anemia, weakness and report of black stools. 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 He reports ongoing black stools (prescribed iron), and anemia requiring RBC transfusion. NPO for EGD today [place] held Continue diet today Trend H&H Monitor and document GI output Transfuse PRN per primary team Continue IV Pantoprazole twice daily Will need to be referred to hematology near his home for continuation of IV iron and management of anemia Will need to be referred to [facility] as an OP VCE We appreciate assistance in the management of any serological abnormality and corrections to include: hemoglobin >7, INR <2, platelets >50,000, potassium levels >3.5 but <5.3, and sodium levels within 5 points of the reference range prior to endoscopic evaluation. Admission and Anticipated Discharge Date Admission Date: July 21, 2025 Supervising Physician Co-Signing Physician Notes Reviewed endoscopy to evaluate potential upper GI's bleeding source once again. Patient has melena. Risk benefits discussed informed consent obtained Subjective NPO for EGD. No further dark stools. No abd pain. No nausea/vomiting. Family at bedside updated. Review of Systems Review of Systems: All other findings negative except as noted in HPI. Physical Exam Gastrointestinal (Abdomen): normal bowel sounds, soft, nontender, no hepatosplenomegaly Results & Data Results & Data Vital Signs (Past 12 Hours) Vital Signs Temp Pulse Pulse Resp BP BP Pulse Ox 07/23/25 08:00 07/23/25 07:36 97.9 F 85 20 115/65 95 07/23/25 07:00 67 07/23/25 02:08 97.7 F 71 16 111/61 96 07/22/25 23:18 07/22/25 22:53 97.9 F 75 16 91/51 L 90/47 L 95 07/22/25 21:42 70 O2 Del Method 07/23/25 08:00 Room Air 07/23/25 07:36 Room Air 07/23/25 07:00 07/23/25 02:08 Room Air 07/22/25 23:18 Room Air 07/22/25 22:53 Room Air 07/22/25 21:42 Laboratory Results 07/23/25 07/23/25 07/22/25 Range/Units 05:42 05:41 20:18 WBC 4.94 (4.8-10.8) K/ul RBC 2.35 L (4.70-6.10) M/uL Hgb 7.5 L (14.0-18.0) g/dl Hct 23.0 L (42.0-52.0) % MCV 97.9 (80.0-100.0) fL MCH 31.9 (25.0-34.0) pg MCHC 32.6 (32.0-36.0) g/dL RDW Std Deviation 79.7 H (36.4-46.3) fL RDW Coeff of Rosalva 23.1 H (11.5-14.5) % Plt Count 212 (130-400) K/uL MPV 10.1 (9.4-12.4) fL Immature Gran % (Auto) 0.4 % Neut % (Auto) 55.3 % Lymph % (Auto) 32.4 % [place] % (Auto) 9.3 % Eos % (Auto) 2.0 % Baso % (Auto) 0.6 % Neut # (Auto) 2.73 (1.40-6.50) K/uL Lymph # (Auto) 1.60 (1.20-3.40) K/uL [place] # (Auto) 0.46 (0.11-0.59) K/uL Eos # (Auto) 0.10 (0.00-0.50) K/uL Baso # (Auto) 0.03 (0.00-0.20) K/uL Immature Gran # (Auto) 0.02 (0.01-0.20) K/uL Absolute Nucleated RBC 0.07 (0.00-0.12) K/uL Nucleated RBC % (auto) 1.4 % Anisocytosis Present Sodium 138 (136-145) mmol/L Potassium 4.3 (3.5-5.1) mmol/L Chloride 110 H (98-107) mmol/L Carbon Dioxide 21 (21-32) mmol/L Anion Gap 7 (3-11) BUN 41 H (6-23) mg/dl Creatinine 1.74 H (0.6-1.4) mg/dl Est Cr Clr Drug Dosing 39.3 ml/min eGFR 38.66 BUN/Creatinine Ratio 23.6 H (10-20) Glucose 160 H (70-99(Fasting)) mg/dl POC Glucose 174 H 154 H (70-99) mg/dl Calcium 8.0 L (8.6-10.3) mg/dl Phosphorus 2.8 (2.5-4.9) mg/dl Magnesium 2.4 (1.7-2.4) mg/dl 07/22/25 07/22/25 07/22/25 Range/Units 16:47 15:18 11:45 WBC (4.8-10.8) K/ul RBC (4.70-6.10) M/uL Hgb 7.9 L (14.0-18.0) g/dl Hct 24.0 L (42.0-52.0) % MCV (80.0-100.0) fL MCH (25.0-34.0) pg MCHC (32.0-36.0) g/dL RDW Std Deviation (36.4-46.3) fL RDW Coeff of Rosalva (11.5-14.5) % Plt Count (130-400) K/uL MPV (9.4-12.4) fL Immature Gran % (Auto) % Neut % (Auto) % Lymph % (Auto) % [place] % (Auto) % Eos % (Auto) % Baso % (Auto) % Neut # (Auto) (1.40-6.50) K/uL Lymph # (Auto) (1.20-3.40) K/uL [place] # (Auto) (0.11-0.59) K/uL Eos # (Auto) (0.00-0.50) K/uL Baso # (Auto) (0.00-0.20) K/uL Immature Gran # (Auto) (0.01-0.20) K/uL Absolute Nucleated RBC (0.00-0.12) K/uL Nucleated RBC % (auto) % Anisocytosis Sodium (136-145) mmol/L Potassium (3.5-5.1) mmol/L Chloride (98-107) mmol/L Carbon Dioxide (21-32) mmol/L Anion Gap (3-11) BUN (6-23) mg/dl Creatinine (0.6-1.4) mg/dl Est Cr Clr Drug Dosing ml/min eGFR BUN/Creatinine Ratio (10-20) Glucose (70-99(Fasting)) mg/dl POC Glucose 146 H 202 H (70-99) mg/dl Calcium (8.6-10.3) mg/dl Phosphorus (2.5-4.9) mg/dl Magnesium (1.7-2.4) mg/dl PG Care Time/CCT Total # of Minutes Spent Total Time Spent with Patient: Total time spent is greater than 50% in coordination of care (as documented) at patient's floor/unit and/or counseling patient: Coding Level of Care Code None Diagnoses GIB (gastrointestinal bleeding) K92.2 GI bleed type/associated pathology: unspecified gastrointestinal hemorrhage type (1) GIB (gastrointestinal bleeding) GI bleed type/associated pathology: unspecified gastrointestinal hemorrhage type Qualified Code(s): K92.2 - Gastrointestinal hemorrhage, unspecified
--- NOTE | 2025-07-23 11:39 | Anesthesiology Consultation ---
Date of Service July 23, 2025 Assessment & Plan Chart Review Chart Review: Acceptable Risk for Surgery and Patient NOT seen in Pre Admission Testing Consults Requested none ASA ASA4 Proposed Anesthesia Anesthesia Type: MAC History Surgery Operation Date: 07/23/25 16:55 Proposed Procedures p Esophagogastroduodenoscopy Dr. Ifeanyi Suggs MD Height/Weight Height: 5 ft 11 in Weight: 99.1 kg Allergies Allergy/AdvReac Type Severity Reaction Status Date / Time nitrofurantoin Allergy Severe SHORT OF Verified 07/03/25 13:49 [From Macrobid] BREATH, DIZZY, LIGHTHEADED, NAUSEA/VOMITING Medications Home Medications Medication Instructions Recorded Confirmed Last Taken fluticasone fur. 200 mcg-umeclid 1 inh inhalation QAM 07/01/23 07/21/25 07/01/25 62.5 mcg-vilant 25 mcg inhalat.powder (Trelegy Ellipta) ipratropium 0.5 mg-albuterol 3 mg 3 ml inhalation Q6H PRN Shortness 07/01/23 07/21/25 08/24/23 (2.5 mg base)/3 mL nebulization Of Breath soln magnesium oxide 400 mg (241.3 mg 0 mg PO BID 07/01/23 07/21/25 07/01/25 magnesium) tablet ranolazine 500 mg tablet,extended 500 mg PO BID 07/01/23 07/21/25 07/01/25 release,12 hr rivaroxaban 15 mg tablet (Xarelto) 15 mg PO HS 07/01/23 07/21/25 07/01/25 rosuvastatin 5 mg tablet 5 mg PO QAM 07/01/23 07/21/25 07/01/25 diltiazem HCl 240 mg 0 mg PO QAM 08/17/23 07/21/25 07/01/25 capsule,extended release 24 hr furosemide 20 mg tablet 20 - 40 mg PO UD 08/17/23 07/21/25 07/01/25 40 MG fluticasone propionate 50 1 spray intranasal DAILY PRN 07/01/25 07/21/25 Unknown mcg/actuation nasal Congestion spray,suspension gabapentin 300 mg capsule 300 mg PO HS 07/01/25 07/21/25 07/01/25 loratadine 10 mg tablet (Claritin) 10 mg PO DAILY PRN Congestion 07/01/25 07/21/25 Unknown neomycin-bacitracn Zn-polymyxin 1 applic topical BID PRN APPLY TO 07/01/25 07/21/25 Unknown 3.5 mg-500 unit-10,000 unit top EAR NEEDED oint semaglutide 1 mg/dose (4 mg/3 mL) 1 mg subcut WK 07/01/25 07/21/25 06/30/25 subcutaneous pen injector (Ozempic) tamsulosin 0.4 mg capsule 0.4 mg PO DAILY 07/01/25 07/21/25 07/01/25 cyanocobalamin (vitamin B-12) 1,000 mcg PO DAILY #30 caps 07/05/25 07/21/25 Unknown 1,000 mcg capsule ferrous sulfate 325 mg (65 mg 325 mg PO DAILY 07/21/25 07/21/25 Unknown iron) tablet,delayed release Active Medications Generic Name Dose Route Start Last Admin Trade Name Freq PRN Reason Stop Dose Admin Diltiazem HCl 240 mg 07/22/25 09:00 07/23/25 07:42 Diltiazem Hcl 240 Mg Capcr PO 08/21/25 08:59 240 mg QAM TAYLOR Administration Ferrous Sulfate 325 mg 07/22/25 09:00 07/23/25 07:43 Ferrous Sulfate 325 Mg Tab PO 08/21/25 08:59 325 mg DAILY TAYLOR Administration Fluticasone Furoate 1 puffs 07/22/25 09:00 07/23/25 07:44 Fluticasone Furoate 200mcg 14 Puffs/Inhaler INH 08/21/25 08:59 1 puffs DAILY TAYLOR Administration Gabapentin 300 mg 07/21/25 21:00 07/22/25 20:25 Gabapentin 300 Mg Cap PO 08/20/25 20:59 300 mg HS TAYLOR Administration Pantoprazole Sodium 40 mg in 10 mls @ 5 mls/min 07/21/25 21:00 07/23/25 07:41 Protonix IV 08/20/25 20:59 5 mls/min BID TAYLOR Administration Insulin Aspart 0 units 07/23/25 06:00 07/23/25 05:48 Insulin Aspart Per Unit Charge SC 08/22/25 05:59 1 units Q6 TAYLOR Administration Melatonin 3 mg 07/22/25 01:27 07/22/25 21:10 Melatonin 3 Mg Tab PO 08/21/25 01:26 3 mg HS PRN Administration Sleep Polyethylene Glycol 17 gm 07/21/25 17:56 07/22/25 10:18 Polyethylene (Miralax) 17 Gm Pack PO 08/20/25 17:55 17 gm DAILY PRN Administration Constipation Ranolazine 500 mg 07/21/25 21:00 07/23/25 07:42 Ranolazine 500 Mg Er Tab PO 08/20/25 20:59 500 mg BID TAYLOR Administration Rosuvastatin Calcium 20 mg 07/22/25 09:00 07/23/25 07:41 Rosuvastatin Calcium 20 Mg Tab PO 08/21/25 08:59 20 mg QAM TAYLOR Administration Tamsulosin HCl 0.4 mg 07/22/25 09:00 07/23/25 07:42 Tamsulosin Hcl 0.4 Mg Cap PO 08/21/25 08:59 0.4 mg DAILY TAYLOR Administration Umeclidinium/Vilanterol 1 puffs 07/22/25 09:00 07/23/25 07:43 Umeclidinium/Vilanterol 62.5/25mcg 7 Puffs/Inhaler INH 08/21/25 08:59 1 puffs DAILY TAYLOR Administration Past Medical History Medical History Neuropathy Hx of fracture of nose multiple times in the past (years ago) Sleep apnea cpap Chronic obstructive pulmonary disease GI bleed 06/2023, recently hospitalized at [facility] for 5 days; found to have diverticulitis Non-ST elevation AL (NSTEMI) pt denies Anemia ASCVD Ao/carotids A Fib RBBB HTN HLD COPD CHF Leukemia CKD 3 Hx/o TIA-CVA Exercise / Class Metabolic Activity III < 4 Walking/Shop/Light housework Past Surgical History Surgical History History of total right knee replacement History of total left knee replacement Hx of umbilical hernia repair done w/cholecystectomy Hx of cholecystectomy Hx of colonoscopy History of cardiac cath ~10-12 years, failed stress test, [facility], no stents; f/u [facility] j[facility] 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, [facility] [place] [facility] [place] History of esophagogastroduodenoscopy (EGD) Past Anesthesia History No Hx of Anesthesia Complications and No Family Hx of Anesthesia Complications History of PONV No Hx of PONV and No Hx of Motion Sickness Social History Smoking Status: Former smoker Do You Dip or Chew Tobacco: No Hx Alcohol Use: No Hx Substance Use: No substance use type: does not use Physical Exam Vital Signs Last Vital Signs Temp 37.0 C 07/23/25 11:13 Pulse 75 07/23/25 11:13 Resp 16 07/23/25 11:13 BP 124/65 07/23/25 11:13 Pulse Ox 97 07/23/25 11:13 O2 Del Method Room Air 07/23/25 11:13 O2 Flow Rate 0 07/21/25 23:00 Testing Laboratory Results 07/23/25 05:42 07/23/25 05:42 PT 13.8 Seconds (9.0-12.0) H 07/21/25 10:10 INR 1.3 (0.9-1.1) H 07/21/25 10:10 APTT 27 Seconds (21-31) 07/21/25 10:10 Hemoglobin A1c 6.4 % (4.5-5.6) H 07/22/25 07:02 Blood Type O Positive 07/21/25 10:10 Antibody Screen NEGATIVE 07/21/25 10:10 07/23/25 05:41 POC Glucose 174 H Electrocardiogram Date: 07/21/25 Findings: + AFIB @ (@ 80) and + RBBB Chest X-Ray Date: 07/21/25 Findings: + infiltrate (RUL), + mass (RUL) and + atherosclerosis of thoracic aorta Echocardiogram Date: 07/02/25 EF: 60% LV Function: normal RWMA: + none Other Findings: + atrial enlargement (LA severely dilated) and + LVH (moderate) Valvular Disease: + (moderate) and + MR (moderate) TR-moderate
[2025-07-23] MEDS ORDERED: ATROPINE SULFATE 0.1 MG/ML 10ML SYR IV PRN (11:53)
--- NOTE | 2025-07-23 12:49 | GI REPORT ---
[facility] Patient: ZACK BLAS : 1945 Sex at : Male Age: 80 Years Procedure: Upper GI endoscopy Date: 07/23/2025 Attending Physician: Uriah Suggs MD Referring MD: Fouzia Graves MD Indications: - Suspected upper gastrointestinal bleeding Medications: - Monitored Anesthesia Care, Robinul 0.2 mg given to inhibit duodenal motility Complications: - No immediate complications. Estimated Blood Loss: - Estimated blood loss: None. Procedure: - The egd scope was introduced through the mouth and advanced to the third part of the duodenum. - The upper GI endoscopy was accomplished without difficulty. - The patient tolerated the procedure well. Findings: - The examined esophagus was normal. - The entire examined stomach was normal. - A medium non-bleeding diverticulum was found in the area of the papilla. Impression: - Normal esophagus. - Normal stomach. - Non-bleeding duodenal diverticulum. - No specimens collected. - No source for melena on EGD. Colonoscopy showed few small AVMs which were cauterized. These would not be the source for continued melena. Recommend outpatient video capsule endoscopy. Recommendation: Procedure Code(s): - 45536, Esophagogastroduodenoscopy, flexible, transoral; diagnostic, including collection of specimen(s) by brushing or washing, when performed (separate procedure) Diagnosis Code(s): - K57.10, Diverticulosis of small intestine without perforation or abscess without bleeding CPT(R) - 2023 copyright [employer]. All Rights Reserved. The CPT codes, CCI edits and ICD codes generated are intended as suggestions and were generated based on input data. These codes are preliminary and upon minesweeping officer review may be revised to meet current compliance and payer requirements. The provider is responsible for the final determination of appropriate codes, and modifiers. Uriah Suggs MD This document has been electronically signed. Note Initiated:07/23/2025 Note Completed:07/23/2025 12:48 PM \\[email or web address]\Provation\Results\[email or web address]\[id number]
--- NOTE | 2025-07-23 13:02 | Anesthesiology Progress Note ---
Date of Service July 23, 2025 Anesthesia Post Procedure Vital Signs Vital Signs: Temp Pulse Pulse Resp BP BP Pulse Ox 07/23/25 12:51 73 22 91/44 L 96 07/23/25 11:13 37.0 C 75 16 124/65 97 07/23/25 08:00 07/23/25 07:36 36.6 C 85 20 115/65 95 07/23/25 07:00 67 07/23/25 02:08 36.5 C 71 16 111/61 96 07/22/25 23:18 07/22/25 22:53 36.6 C 75 16 91/51 L 90/47 L 95 07/22/25 21:42 70 07/22/25 18:57 36.5 C 77 16 115/64 97 07/22/25 15:19 36.6 C 73 18 99/61 L 94 07/22/25 15:08 102/58 L O2 Del Method 07/23/25 12:51 Room Air 07/23/25 11:13 Room Air 07/23/25 08:00 Room Air 07/23/25 07:36 Room Air 07/23/25 07:00 07/23/25 02:08 Room Air 07/22/25 23:18 Room Air 07/22/25 22:53 Room Air 07/22/25 21:42 07/22/25 18:57 Room Air 07/22/25 15:19 Room Air 07/22/25 15:08 Transfer of Care Handoff Completed per policy Notes Mental Status: alert / awake / arousable Patient Amnestic to Procedure: Yes Nausea / Vomiting: adequately controlled Pain: adequately controlled Airway Patency, RR, SpO2: stable & adequate BP & HR: stable & adequate Hydration State: stable & adequate Anesthetic Complications: no major complications apparent
--- NOTE | 2025-07-23 13:08 | Communication Note ---
Date of Service: July 23, 2025 EGD no bleeding identified. Scope passed to the third part of the duodenum. Duodenal diverticulum only Okay for discharge will arrange outpatient video capsule endoscopy. Anticoagulation if required can be reinstituted
[2025-07-23] MEDS: SODIUM CHLORIDE 0.9% 500 ML IV SCH (13:52)
[2025-07-23] MEDS: LIDOCAINE 2% 2 ML VIAL/AMP(20MG/ML) INFIL ONE (13:52)
[2025-07-23] MEDS: PROPOFOL IV EMULSION 10 MG/ML 20 ML VIAL IV ONE (13:52)
[2025-07-23 13:56] VITALS: BP 120/74; RESP 16; TEMP 97.5; O2SAT 95
[2025-07-23] MEDS: PHENYLEPHRINE HCL 10 MG/ML VIAL ONE (14:01)
[2025-07-23] MEDS: GLYCOPYRROLATE 0.2 MG/ML VIAL ONE (14:01)
[2025-07-23 14:39] LABS: Hematocrit (blood only) 25.2 % (42.0-52.0); Hemoglobin 8.2 g/dl (14.0-18.0)
[2025-07-23 15:21] VITALS: PULSE 93
--- NOTE | 2025-07-23 16:48 | Discharge Summary ---
Discharge Summary Date of Service July 23, 2025 Principal Dx & Hospital Course #1 = Principal Diagnosis (1) GIB (gastrointestinal bleeding): (2) Brain TIA: (3) Acute blood loss anemia: Plan 80 yr old M with PMHx of CKD III, AFib on Xarelto (resumed around 07/08/25), COPD, DM II, Obstructive CAD, HFpEF, portal gastropathy, h/o leukemia s/p bone marrow transplant, B12 deficiency, recent admission to [facility] 07/03 - 07/05/25 (eval and management of UGIB) now returns for the evaluation of worsening weakness. #Acute blood loss anemia - admit to inpt with tele - pt had EGD / C-scope last admission showing duodenitis, polps, and AVMs s/p APC - he has not had capsule endoscopy yet - hold rivaroxaban - IV Protonix 40mg BID - discontinued on d/c as there is no evidence of gastritis or source of bleed - GI recs appreciated, EGD unremarkable, recs outpatient VCE, cleared for discharge, pt can resume AC if hgb on Tuesday is stable - monitor Hgb, transfuse PRN (blood consent completed and given to bedside RN) - iron studies / b12 reviewed #Facial drooping - currently no symptoms - CT head showing no acute intracranial abnormality, mild to mod volume loss and chronic microvascular ischemic changes - CTA head / neck showing severe stenosis of both vertebral artery origins, mod stenosis of proximal right internal artery and mild stenosis of left internal carotid artery - MRI brain neg - on rosuvastatin 5mg, increase to 20mg - a1c and lipid panel reviewed - vascular surgery recs appreciated - no immediate surgical plan , outpatient eval to discuss further options #Weakness - due to anemia - weakness has resolved after PRBC transfusion, he remains independent, though OT recs home OT eval - CM to set up home health #AFib - CHADS2 Vasc: at least 5 (age: +2, HF, HTN, DM II) - currently rate controlled - high risk for stroke - cont diltiazem for now - per discussion with cardiology (not a formal consult, did not request cardiology to review chart, just discussion on anticoagulation) - when cleared by GI recs switching to standard dose eliquis as bleed risk lower than xarelto. eventually eval for watchman procedure - xarelto d/c-ed and pt started on eliquis #Lung mass - CTA showing 2cm spiculated FROILAN and 4.2cm RUL mass like opacities seen - pt reports he is aware of this and is being monitored as outpatient #COPD - cont trelegy #CKD III - baseline Cr 1.7 - 1.9 - monitor #HFpEF - hold lasix at this time #CAD - cont ranolazine #DM II - A1c: 6.4 - hold ozempic - sliding scale #Elevated troponin - actually trending down even compared to prior #DVT ppx: SCDs - pt does have IVC filter still in place #Code status: Full code #Dispo- d/c home , CM team notified to set up home PT / OT Admission HPI Per Admitting Provider 80 yr old M with PMHx of CKD III, AFib on Xarelto (resumed around 07/08/25), COPD, DM II, Obstructive CAD, HFpEF, portal gastropathy, h/o leukemia s/p bone marrow transplant, B12 deficiency, recent admission to [facility] 07/03 - 07/05/25 (eval and management of UGIB) now returns for the evaluation of worsening weakness. Pt stated that over the past few days, his stool has been black, which he mostly attributed to iron supplementation. However, starting yesterday, he started to feel diffusely weak, which continued to progress and today it was so profound he called EMS. While in the ED, there was concern for facial drooping, which was not present per EMS. Due to taking xarelto yesterday, he is not a candidate for TNKase. He did have NCCT head, CTA head and neck, which were all negative. He is otherwise stable. During previous admission, pt was to follow for capsule endoscopy, this has not been set up. Discharge Exam Gen: no acute distress, lying in bed comfortable Skin: significant pallor HEENT: NC/AT, MMM, pallor Lungs: nonlabored breathing, CTAB CVS: s1s2nl, irregular Abd: nl bowel sounds, soft, NT / ND : no pineda Ext: no edema Neuro: AAOx3, overall benign exam, upper / lower extremity strength and sensation intact, CN II-XII grossly intact Psych: calm, cooperative Discharge Plan Discharge Items Patient Disposition: Home - Self-Care Reason For Visit: WEAKNESS Discharge Diagnosis: acute blood loss anemia Condition on Discharge: Fair Activity: Resume your previous activity Non-emergency contact: Primary Care Provider and Heavy Machinery Assembler Call non-emergency contact if: you have any medication questions and your symptoms worsen Follow-up/Referrals: Kristen Melendez CRNP [Primary Care Provider] - Diet: Carb Consistent or DM2 and Heart Healthy Ambulatory Orders: US carotid doppler BI (Routine) Timeframe: 3 Weeks Facility: [facility] - Location: Cardiology [place] Ordered By: Katharine Jacob Attending Provider Instructions: You were admitted to the hospital for weakness. You were found to have low hemo globin requiring 2 units of blood transfusion. You were evaluated by systems software developer and upper endoscopy was done. This test was unremarkable. Your hemoglobin is remaining stable. You will need further outpatient evaluation with pill endoscopy. Your outpatient systems software developer team can assist you with scheduling this. Please note that your xarelto will be switched to eliquis. You will need to follow up with your primary care doctor for a hemoglobin check on Tuesday. If your hemoglobin is stable on Tuesday, you are cleared to take your new blood thinner (eliquis, not xarelto). If your symptoms return, please go to your nearest hospital. You are medically stable for discharge. You will need to follow up with your primary care doctor in about 7 to 10 days. It was a pleasure being a part of your medical care team during your stay at [facility]. Cecil Physician Ophthalmologist Provider Instructions: Please follow up with Dr. Carroll from Vascular Surgery in 3-4 weeks. We will do an ultrasound of your carotid arteries at that time. The address is [address] (building in front of the [facility]). We are on the second floor. Pending Studies at Discharge: No Stand-Alone Forms: My [facility], Smoking Cessation Medications and DC Order Prescriptions: New Eliquis 5 mg tablet 5 mg PO BID Qty: 60 0RF Continued ipratropium-albuterol 0.5 mg-3 mg(2.5 mg base)/3 mL solution for nebulization 3 ml INHALATION Q6H PRN (Reason: Shortness Of Breath) Patient Comments: uses at least once per day magnesium oxide 400 mg (241.3 mg magnesium) tablet 0 mg PO BID Patient Comments: 07/21- OTC/ last filled 02/08 90 day supply 180 rosuvastatin 5 mg tablet 5 mg PO QAM ranolazine 500 mg tablet extended release 12 hr 500 mg PO BID Trelegy Ellipta 200-62.5-25 mcg blister with device 1 inh INHALATION QAM diltiazem HCl 240 mg capsule,extended release 24hr 0 mg PO QAM Patient Comments: 07/21- no fill history unable to verify. original:240 mg po qam furosemide 20 mg tablet 20 - 40 mg PO UD Rx Instructions: 2 tablets on ODD days and 1 tablet on EVEN days tamsulosin 0.4 mg capsule 0.4 mg PO DAILY gabapentin 300 mg capsule 300 mg PO HS fluticasone propionate 50 mcg/actuation [place],Suspension 1 spray INTRANASAL DAILY PRN (Reason: Congestion) Patient Comments: 07/21- otc/no fill history unable to verify loratadine [Claritin] 10 mg Tablet 10 mg PO DAILY PRN (Reason: Congestion) Patient Comments: 07/21- otc unable to verify [id number] 3.5-500-10,000 [id number] Ointment 1 applic TOPICAL BID PRN (Reason: APPLY TO EAR NEEDED) Patient Comments: 07/21- otc unable to verify Ozempic 1 mg/dose (4 mg/3 mL) pen injector 1 mg SUBCUT WK Rx Instructions: SUNDAYS cyanocobalamin (vitamin B-12) 1,000 mcg capsule 1,000 mcg PO DAILY Qty: 30 0RF Patient Comments: 07/21- otc unable to verify Rx Instructions: [id number] ferrous sulfate 325 mg (65 mg iron) tablet,delayed release (DR/EC) 325 mg PO DAILY Discontinued Xarelto 15 mg tablet 15 mg PO HS Hold Instructions: Resume on 07/07/25. Discharge Orders: Discharge Order (Routine); Ordered 07/23/25 Ordered By: Fouzia Sargent/Other Patient Handouts: High Blood Sugar (Hyperglycemia), Managing Type 2 Diabetes Admission Data Admit Date/Time: 07/21/25 14:36 Attending Provider: Fouzia Graves Admit Provider: Fouzia Graves Primary Care Provider: Kristen Melendez Other Providers: Rossy Dietz Jr; Santosh Carroll; Star,Fouzia A Other Interventions: Discharge Summary Assessment (RN) Last Done: 07/23/25 15:20 Hospital Stay Data Consultations 07/21/25 11:59 ED Decision to Admit Stat 07/21/25 14:36 Consult Gastroenterology Routine 07/21/25 15:33 Consult Vascular Surgery Routine 07/22/25 15:45 Burn CD for patient Routine Procedures Performed Operation Date: 07/23/25 16:55 Actual Procedures p Esophagogastroduodenoscopy - Uriah Suggs MD Diagnostic Imagining Performed 07/21/25 10:05 CT angio head w con Stat CT angio neck with con Stat CT head/brain wo con Stat 07/21/25 10:48 CT chest diagnostic wo con Stat 07/21/25 14:35 MRI Brain [MR brain wo con] Stat Pending Results Patient Have Any Pending Studies at Discharge: No Discharge Instructions Given to Patient (Per Discharging Provider) You were admitted to the hospital for weakness. You were found to have low hemoglobin requiring 2 units of blood transfusion. You were evaluated by systems software developer and upper endoscopy was done. This test was unremarkable. Your hemoglobin is remaining stable. You will need further outpatient evaluation with pill endoscopy. Your outpatient systems software developer team can assist you with scheduling this. Please note that your xarelto will be switched to eliquis. You will need to follow up with your primary care doctor for a hemoglobin check on Tuesday. If your hemoglobin is stable on Tuesday, you are cleared to take your new blood thinner (eliquis, not xarelto). If your symptoms return, please go to your nearest hospital. You are medically stable for discharge. You will need to follow up with your primary care doctor in about 7 to 10 days. It was a pleasure being a part of your medical care team during your stay at [facility]. Total Time Total Time Spent Total Time Spent (In Minutes): 45 Coding Level of Care Code 03788 INP/OBS DISCH >30 MIN Diagnoses GIB (gastrointestinal bleeding) K92.2 GI bleed type/associated pathology: unspecified gastrointestinal hemorrhage type Brain TIA G45.9 Acute blood loss anemia D62
== END 2025-07-23 17:21 | disposition home or self-care (01) | DRG 378 ==
LOC: ED 09:57 → INTOOBSV 14:36 → 2N 14:36